=== PATIENT | male | born 1960 | race Caucasian/White ===

== ENCOUNTER 2020-10-08 11:09 | Outpatient (REF) | payer BC, SELFPAY | END 2020-10-08 11:10 | disposition home or self-care (01) | LOC: HO.LAB 11:09 | PROVIDERS: Visit Provider Internal Medicine | DX: Z20.822 Contact with and (suspected) exposure to COVID-19 (principal) | CPT/HCPCS: 36415; C9803; U0003 ==

== ENCOUNTER 2021-12-10 13:31 | Outpatient (REF) | payer BC, SELFPAY ==
[2021-12-10 14:16] LABS: COVID-19 Test Negative (Negative); IDNOW Serial# 08D9AD1C
== END 2021-12-10 13:32 | disposition home or self-care (01) ==
LOC: HO.LAB 13:31
PROVIDERS: PCP Internal Medicine; Visit Provider Internal Medicine
DX: Z20.822 Contact with and (suspected) exposure to COVID-19 (principal)
CPT/HCPCS: 87635; C9803

== ENCOUNTER 2023-04-22 05:06 | Emergency (ER) | payer OTHER, SELFPAY ==
--- NOTE | ~2023-04-22 | CT_ITS ---
EXAMINATION: CT HEAD WITHOUT CONTRAST CLINICAL INFORMATION: Hypertension COMPARISON: None available. TECHNIQUE: Contiguous axial imaging was performed from the skull base to vertex without intravenous administration of contrast. This CT examination was performed using dose optimization techniques as appropriate, variously including the following: *Automated exposure control *Adjustment of mA and/or kV according to patient size (this includes techniques or standardized protocols for targeted exams where dose is matched to indication/reason for exam; i.e. extremities or head) *Use of iterative reconstruction technique DLP: 790 mGy-cm FINDINGS: There is no evidence of acute intracranial hemorrhage or territorial infarction. No abnormal mass effect or midline shift is seen. Ritchie to white matter differentiation is well preserved. No extra-axial fluid collections are identified. No hydrocephalus. No significant volume loss. There is no abnormal attenuation within the brain parenchyma. No acute osseous or soft tissue abnormality. The mastoid air cells and visualized portions of the paranasal sinuses are well aerated. CT/CT head/brain wo IV con IMPRESSION: No acute intracranial pathology.
[2023-04-22 05:11] VITALS: BP 250/150; PULSE 98; O2SAT 97
--- NOTE | 2023-04-22 05:12 | ECG_ITS ---
Test Reason : htn Blood Pressure : / mmHG Vent. Rate : 065 BPM Atrial Rate : 065 BPM P-R Int : 190 ms QRS Dur : 110 ms QT Int : 406 ms P-R-T Axes : 062 029 060 degrees QTc Int : 422 ms Normal sinus rhythm Normal ECG No previous ECGs available Referred By: Sunny Bailon Electronically Signed By:APRIL PERRIN
--- NOTE | 2023-04-22 05:16 | ED.HA ---
HPI - Headache General Chief Complaint: Headache Stated Complaint: Nausea and headache Time Seen by Provider: 04/22/23 05:12 Source: patient Mode of arrival: ambulatory Limitations: no limitations History of Present Illness HPI Narrative: Patient history of hypertension workup from the sleep at 03:00 with severe headache diffuse with nausea and vomiting blood pressure checked by EMS was 255/150 in the ER was 197/145 denies any chest pain no palpitation Related Data Home Medications Medication Instructions Recorded Confirmed loratadine 10 mg tablet (Claritin) 10 mg PO DAILY 12/30/22 12/30/22 losartan 100 mg tablet 100 mg PO DAILY 12/30/22 12/30/22 omeprazole 20 mg capsule,delayed 20 mg PO DAILY 12/30/22 12/30/22 release Allergies Allergy/AdvReac Type Severity Reaction Status Date / Time Seasonal Allergies Allergy Mild Sneezing Verified 12/30/22 13:27 Review of Systems Review of Systems: Yes all other systems are reviewed and are negative [facility] Social History Social History Housing: House Patient Tobacco Use Status: Former Tobacco user Tobacco use type: Cigarette Smoked in Last 30 Days: No e-Cigarette/Vaping Use: Never Used Second Hand Smoke Exposure: No Advance Directives: No Advance Directives Information Provided: Yes service: Yes Current occupational status: unemployed 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 Oriented X3. No acute distress. Eyes: PERRLA, No Nystagmus ENT: Pharynx normal. Oral Mucosa moist Neck: Normal inspection. Neck supple. CVS: Normal heart rate and rhythm. Pulses normal. Respiratory: No respiratory distress. Equal air entry bilateral, no wheezing/rales/rhonchi Abdomen: Soft and nontender. Bowel sounds are present, no mass palpable, no CVA tenderness Skin: Skin warm and dry. Normal skin color. Normal skin turgor. Extremities: No lower extremity edema. No calf tenderness Neuro: Oriented X 3. No motor deficit. No sensory deficit.No cerebellar signs , cranial nerves II-XII intact NIH Stroke Scale Internal: Initial- Upon Arrival Level of Consciousness: Alert Level of Consciousness Questions: Answers both questions correctly Level of Consciousness Commands: Performs both tasks correctly Best Gaze: Normal Visual: No visual loss Facial Palsy: Normal Motor Arm (Right): No drift Motor Arm (Left): No drift Motor Leg (Right): No drift Motor Leg (Left): No drift Limb Ataxia: Absent Sensory: Normal Best Language: No aphasia Dysarthia: Normal Extinction and Inattention: No abnormality Score: 0 Medications Administered Discontinued Medications Generic Name Dose Route Start Last Admin Trade Name Gulshanq PRN Reason Stop Dose Admin Labetalol HCl 20 mg 04/22/23 05:12 04/22/23 05:17 Labetalol Hcl 100 Mg/20 Ml Vial IVPUSH 04/22/23 05:13 20 mg ONCE ONE Administration Morphine Sulfate 4 mg 04/22/23 06:29 04/22/23 06:53 Morphine Sulfate 4 Mg/Ml Cartridge IVPUSH 04/22/23 06:30 4 mg ONCE ONE Administration Protocol Ondansetron HCl 4 mg 04/22/23 05:17 04/22/23 05:34 Ondansetron Hcl 4 Mg/2 Ml Vial IVPUSH 04/22/23 05:18 4 mg ONCE ONE Administration Medical Decision Making Medical Decision Making [facility] Narrative: Patient with accelerated hypertension with severe headache less than [address] scan of the head was negative for acute bleed blood pressure improved after labetalol and headache also improved cause of acute hypertension not very clear no use of NSAID no history of migraines blood pressure now 160/84 pulse rate of 72 patient feeling much better of discharge patient Differential Diagnosis Differential Diagnoses: The differential diagnosis associated with the presentation includes Subarachnoid bleed/migraine headache/CVA/hypertension emergency Admission/Observation Consideration of admission/observation: Escalation of care including admission/observation considered Lab Data [facility] Lab Attestation statement: I reviewed the patient's lab results. 04/22/23 05:17 04/22/23 05:17 Labs: Lab Results 04/22/23 04/22/23 04/22/23 Range/Units 05:14 05:17 05:17 WBC 16.4 H (4.8-10.8) X10*3/uL RBC 5.00 (4.60-5.80) X10*6/uL Hgb 15.5 (14.0-18.0) g/dl Hct 46.6 (42.0-52.0) % MCV 93.2 (80.0-98.0) fL MCH 31.0 (27.0-33.0) pg MCHC 33.3 (31.0-36.0) g/dl RDW 13.0 (11.0-16.0) % Plt Count 395 (160-400) X10*3/uL MPV 10.4 (9.4-12.4) fL Immature Gran % (Auto) 1.2 H (0.0-0.4) % Neut % (Auto) 63.9 (45-73) % Lymph % (Auto) 26.4 (20-40) % [place] % (Auto) 6.8 (2-11) % Eos % (Auto) 1.2 (0-4) % Baso % (Auto) 0.5 (0-2) % Lymph # (Auto) 4.3 (1.2-4.9) X10*3/uL [place] # (Auto) 1.1 (0.1-1.2) X10*3/uL Eos # (Auto) 0.2 (0.0-0.4) X10*3/uL Baso # (Auto) 0.1 (0.0-0.2) X10*3/uL Abs Immat Gran (auto) 0.19 H (0.00-0.03) X10*3/uL Absolute Neuts (auto) 10.5 H (2.0-8.3) x10*3/uL Absolute Nucleated RBC 0.000 (0.0-0.012) X10*3/uL Nucleated RBC % (auto) 0.0 (0.0-0.2) /100WBC PT 10.9 L (11.1-13.3) SEC Whole Blood PT (11.1-13.5) sec INR 0.9 (0.9-1.1) Whole Blood INR (0.9-1.1) Sodium (135-145) mmol/L Potassium (3.3-5.1) mmol/L Chloride (96-108) mmol/L Carbon Dioxide (22-29) mmol/L Anion Gap (12-20) BUN (9-16) mg/dL Creatinine (0.5-1.4) mg/dL Estim Creat Clear Calc Estimated GFR POC Glucose 153 H (60-115) mg/dL Random Glucose (60-115) mg/dL Calcium (8.4-10.2) mg/dL Total Bilirubin (0.0-1.0) mg/dL AST (5-37) U/L ALT (0-40) U/L Alkaline Phosphatase (39-117) U/L Troponin I High Sens (<3.5-35.0) ng/L Total Protein (6.5-8.0) g/dL Albumin (3.5-5.0) g/dL COVID-19 (FEDE) (Negative) COVID-19 Clin Com 04/22/23 04/22/23 04/22/23 Range/Units 05:17 05:17 05:17 WBC (4.8-10.8) X10*3/uL RBC (4.60-5.80) X10*6/uL Hgb (14.0-18.0) g/dl Hct (42.0-52.0) % MCV (80.0-98.0) fL MCH (27.0-33.0) pg MCHC (31.0-36.0) g/dl RDW (11.0-16.0) % Plt Count (160-400) X10*3/uL MPV (9.4-12.4) fL Immature Gran % (Auto) (0.0-0.4) % Neut % (Auto) (45-73) % Lymph % (Auto) (20-40) % [place] % (Auto) (2-11) % Eos % (Auto) (0-4) % Baso % (Auto) (0-2) % Lymph # (Auto) (1.2-4.9) X10*3/uL [place] # (Auto) (0.1-1.2) X10*3/uL Eos # (Auto) (0.0-0.4) X10*3/uL Baso # (Auto) (0.0-0.2) X10*3/uL Abs Immat Gran (auto) (0.00-0.03) X10*3/uL Absolute Neuts (auto) (2.0-8.3) x10*3/uL Absolute Nucleated RBC (0.0-0.012) X10*3/uL Nucleated RBC % (auto) (0.0-0.2) /100WBC PT (11.1-13.3) SEC Whole Blood PT (11.1-13.5) sec INR (0.9-1.1) Whole Blood INR (0.9-1.1) Sodium 141 (135-145) mmol/L Potassium 3.7 (3.3-5.1) mmol/L Chloride 105 (96-108) mmol/L Carbon Dioxide 21 L (22-29) mmol/L Anion Gap 19 (12-20) BUN 18 H (9-16) mg/dL Creatinine 1.08 (0.5-1.4) mg/dL Estim Creat Clear Calc 90.0 Estimated GFR > 60 POC Glucose (60-115) mg/dL Random Glucose 140 H (60-115) mg/dL Calcium 10.1 (8.4-10.2) mg/dL Total Bilirubin 0.5 (0.0-1.0) mg/dL AST 26 (5-37) U/L ALT 43 H (0-40) U/L Alkaline Phosphatase 77 (39-117) U/L Troponin I High Sens < 2.7 (<3.5-35.0) ng/L Total Protein 8.1 H (6.5-8.0) g/dL Albumin 4.8 (3.5-5.0) g/dL COVID-19 (FEDE) Negative (Negative) COVID-19 Clin Com See Note 04/22/23 Range/Units 05:20 WBC (4.8-10.8) X10*3/uL RBC (4.60-5.80) X10*6/uL Hgb (14.0-18.0) g/dl Hct (42.0-52.0) % MCV (80.0-98.0) fL MCH (27.0-33.0) pg MCHC (31.0-36.0) g/dl RDW (11.0-16.0) % Plt Count (160-400) X10*3/uL MPV (9.4-12.4) fL Immature Gran % (Auto) (0.0-0.4) % Neut % (Auto) (45-73) % Lymph % (Auto) (20-40) % [place] % (Auto) (2-11) % Eos % (Auto) (0-4) % Baso % (Auto) (0-2) % Lymph # (Auto) (1.2-4.9) X10*3/uL [place] # (Auto) (0.1-1.2) X10*3/uL Eos # (Auto) (0.0-0.4) X10*3/uL Baso # (Auto) (0.0-0.2) X10*3/uL Abs Immat Gran (auto) (0.00-0.03) X10*3/uL Absolute Neuts (auto) (2.0-8.3) x10*3/uL Absolute Nucleated RBC (0.0-0.012) X10*3/uL Nucleated RBC % (auto) (0.0-0.2) /100WBC PT (11.1-13.3) SEC Whole Blood PT 12.9 (11.1-13.5) sec INR (0.9-1.1) Whole Blood INR 1.1 (0.9-1.1) Sodium (135-145) mmol/L Potassium (3.3-5.1) mmol/L Chloride (96-108) mmol/L Carbon Dioxide (22-29) mmol/L Anion Gap (12-20) BUN (9-16) mg/dL Creatinine (0.5-1.4) mg/dL Estim Creat Clear Calc Estimated GFR POC Glucose (60-115) mg/dL Random Glucose (60-115) mg/dL Calcium (8.4-10.2) mg/dL Total Bilirubin (0.0-1.0) mg/dL AST (5-37) U/L ALT (0-40) U/L Alkaline Phosphatase (39-117) U/L Troponin I High Sens (<3.5-35.0) ng/L Total Protein (6.5-8.0) g/dL Albumin (3.5-5.0) g/dL COVID-19 (FEDE) (Negative) COVID-19 Clin Com Independent Interpretation I performed an independent interpretation of an: EKG Interpretation: Normal sinus rhythm heart rate 65 beats per minute normal intervals incomplete right bundle-branch block no acute ST changes no acute ischemia Radiology Impression Discussion of test interpretation with radiology: I have reviewed the radiologist's reading. Radiologist Impression: [address] [address] [address] Scan Report Signed Patient: Kris Todd MR#: [id number] : 1960 Acct:[id number] Age/Sex: 62 / M ADM Date: 04/22/23 Loc: .ED Attending Dr: Ordering Physician: Sunny Bailon MD Date of Service: 04/22/23 Procedure(s): CT head/brain wo IV con Accession Number(s): [id number] cc: Sunny Bailon MD~ EXAMINATION: CT HEAD WITHOUT CONTRAST CLINICAL INFORMATION: Hypertension? COMPARISON: None available. TECHNIQUE: Contiguous axial imaging was performed from the skull base to vertex without intravenous administration of contrast. This CT examination was performed using dose optimization techniques as appropriate, variously including the following: *Automated exposure control *Adjustment of mA and/or kV according to patient size (this includes techniques or standardized protocols for targeted exams where dose is matched to indication/reason for exam; i.e. extremities or head) *Use of iterative reconstruction technique DLP: 790 mGy-cm FINDINGS: There is no evidence of acute intracranial hemorrhage or territorial infarction. No abnormal mass effect or midline shift is seen. Ritchie to white matter differentiation is well preserved. No extra-axial fluid collections are identified. No hydrocephalus. No significant volume loss. There is no abnormal attenuation within the brain parenchyma. No acute osseous or soft tissue abnormality. The mastoid air cells and visualized portions of the paranasal sinuses are well aerated. ? CT/CT head/brain wo IV con IMPRESSION: No acute intracranial pathology. Critical Care Time Critical Care Time Critical Care Time: Yes Total Critical Care Time: 35 Attestation: The patient was critically ill with a high probability of imminent or life threatening deterioration. I spent greater than 40 minutes of discontinuous time evaluating the patient,delivering critical care at the bedside, discussing and evaluating pertinent data with consultants. Critical care time does not include time spent performing separately billable procedures or teaching. Total time spent performing critical care was 35 minutes. Discharge Plan Discharge Clinical Impression: Accelerated essential hypertension Patient Disposition: Home, Self-Care Prescriptions: No Action losartan 100 mg tablet 100 mg PO DAILY omeprazole 20 mg capsule,delayed release(DR/EC) 20 mg PO DAILY loratadine [Claritin] 10 mg tablet 10 mg PO DAILY
[2023-04-22] MEDS: Labetalol HCL 100 MG/20 ML VIAL 20 MG IVPUSH (05:17)
[2023-04-22 05:18] VITALS: BP 195/147; PULSE 85; RESP 16
[2023-04-22 05:19] VITALS: BP 195/147; PULSE 85; RESP 16; TEMP 36.6; O2SAT 94; BMI 39.9
[2023-04-22 05:21] LABS: Basophils Absolute Auto 0.1 X10*3/uL (0.0-0.2); Basophils Percent Auto 0.5 % (0-2); Eosinophils Absolute Auto 0.2 X10*3/uL (0.0-0.4); Eosinophils Percent Auto 1.2 % (0-4); Hematocrit 46.6 % (42.0-52.0); Hemoglobin 15.5 g/dl (14.0-18.0); Imm Gran Abs Auto 0.19 X10*3/uL (0.00-0.03); Imm Gran Pct Auto 1.2 % (0.0-0.4); Lymphocytes Absolute Auto 4.3 X10*3/uL (1.2-4.9); Lymphocytes Percent Auto 26.4 % (20-40); MANUAL DIFF FLAG NO; Mean Corpuscular HGB Conc 33.3 g/dl (31.0-36.0); Mean Corpuscular Volume 93.2 fL (80.0-98.0); Mean Platelet Volume 10.4 fL (9.4-12.4); Monocytes Absolute Auto 1.1 X10*3/uL (0.1-1.2); Monocytes Percent Auto 6.8 % (2-11); Neutrophils Absolute Auto 10.5 x10*3/uL (2.0-8.3); Neutrophils Percent Auto 63.9 % (45-73); Platelet Count 395 X10*3/uL (160-400); White Blood Count 16.4 X10*3/uL (4.8-10.8)
[2023-04-22 05:24] LABS: Prothrombin Time Whole Bld POC 12.9 sec (11.1-13.5); ~PT, ~INR - Anti Coag Clinic 1.1 (0.9-1.1)
[2023-04-22 05:26] LABS: Glucose, Whole Blood 153 mg/dL (60-115)
[2023-04-22 05:28] LABS: INTERNATIONAL NORM RATIO 0.9 (0.9-1.1); Prothrombin Time 10.9 SEC (11.1-13.3)
[2023-04-22 05:34] VITALS: BP 178/101
[2023-04-22 05:34] LABS: COVID-19 Test Negative (Negative); IDNOW Serial# BCCEAD1C
[2023-04-22] MEDS: ondansetron HCL 4 MG/2 ML VIAL IVPUSH (05:34)
--- NOTE | 2023-04-22 05:37 | PC.NURSE ---
Pt a&o, no sob or chest pain, pt place on bedside monitor, poc, InR, Iv placed, provider at the bedside, medicated per Nov, EKG completed, Pt taken to CT scan. JOSE LUIS Clarke notified. Will continue to monitor.
[2023-04-22 05:43] LABS: Alanine Aminotransferase 43 U/L (0-40); Albumin Level 4.8 g/dL (3.5-5.0); Alkaline Phosphatase 77 U/L (39-117); Anion Gap 19 (12-20); Aspartate Amino Transferase 26 U/L (5-37); Bilirubin Total 0.5 mg/dL (0.0-1.0); Blood Urea Nitrogen 18 mg/dL (9-16); Calcium 10.1 mg/dL (8.4-10.2); Carbon Dioxide 21 mmol/L (22-29); Chloride 105 mmol/L (96-108); Estimated Glomerular Filt Rate > 60; Glucose Random 140 mg/dL (60-115); Potassium 3.7 mmol/L (3.3-5.1); Sodium 141 mmol/L (135-145); Total Protein 8.1 g/dL (6.5-8.0)
[2023-04-22 05:51] LABS: Troponin-I High Sensitivity < 2.7 ng/L (<3.5-35.0)
[2023-04-22 06:00] VITALS: BP 179/84; PULSE 73; RESP 17; O2SAT 95
[2023-04-22] MEDS: Morphine Sulfate 4 MG/ML CARTRIDGE IVPUSH (06:53)
[2023-04-22 07:17] VITALS: BP 160/84; PULSE 82; RESP 17; O2SAT 94
== END 2023-04-22 07:18 | disposition home or self-care (01) ==
PROVIDERS: Emergency Provider Internal Medicine; PCP Internal Medicine
DX: I10 Essential (primary) hypertension (principal); R11.2 Nausea with vomiting, unspecified; Z20.822 Contact with and (suspected) exposure to COVID-19; Z87.891 Personal history of nicotine dependence; Z79.899 Other long term (current) drug therapy
CPT/HCPCS: 70450; 80053; 82947; 84484; 85025; 85610; 87635; 93005; 96374; 96375; 99284; J2270; J2405

== ENCOUNTER → 2023-04-22 05:12 | Outpatient (BNV) | payer OTHER, SELFPAY | PROVIDERS: Emergency Provider Internal Medicine; PCP Internal Medicine; Visit Provider Internal Medicine | DX: I10 Essential (primary) hypertension (principal) | CPT/HCPCS: 93010 ==

== ENCOUNTER 2023-05-01 07:51 | Outpatient (REF) | payer OTHER, SELFPAY ==
[2023-05-01 11:54] LABS: MANUAL DIFF FLAG NO
[2023-05-01 12:18] LABS: Basophils Absolute Auto 0.1 X10*3/uL (0.0-0.2); Basophils Percent Auto 0.9 % (0-2); Eosinophils Absolute Auto 0.2 X10*3/uL (0.0-0.4); Eosinophils Percent Auto 1.7 % (0-4); Hematocrit 46.1 % (42.0-52.0); Hemoglobin 15.4 g/dl (14.0-18.0); Imm Gran Abs Auto 0.06 X10*3/uL (0.00-0.03); Imm Gran Pct Auto 0.6 % (0.0-0.4); Lymphocytes Absolute Auto 3.2 X10*3/uL (1.2-4.9); Lymphocytes Percent Auto 30.7 % (20-40); Mean Corpuscular HGB Conc 33.4 g/dl (31.0-36.0); Mean Corpuscular Hemoglobin 31.2 pg (27.0-33.0); Mean Corpuscular Volume 93.3 fL (80.0-98.0); Mean Platelet Volume 10.8 fL (9.4-12.4); Monocytes Absolute Auto 0.9 X10*3/uL (0.1-1.2); Monocytes Percent Auto 8.1 % (2-11); Neutrophils Absolute Auto 6.1 x10*3/uL (2.0-8.3); Platelet Count 358 X10*3/uL (160-400); Red Blood Count 4.94 X10*6/uL (4.60-5.80); Red Cell Distribution Width 12.9 % (11.0-16.0); White Blood Count 10.6 X10*3/uL (4.8-10.8)
[2023-05-01 12:44] LABS: Alanine Aminotransferase 34 U/L (0-40); Albumin Level 4.5 g/dL (3.5-5.0); Alkaline Phosphatase 70 U/L (39-117); Anion Gap 12 (12-20); Aspartate Amino Transferase 24 U/L (5-37); Bilirubin Total 0.7 mg/dL (0.0-1.0); Blood Urea Nitrogen 16 mg/dL (9-16); Calcium 9.7 mg/dL (8.4-10.2); Carbon Dioxide 27 mmol/L (22-29); Chloride 103 mmol/L (96-108); Cholesterol 231 mg/dL; Estimated Glomerular Filt Rate > 60; Glucose Fasting 96 mg/dL (60-99); HDL Cholesterol 38 mg/dL; LDL Cholesterol Calculated 154 mg/dl; Potassium 4.2 mmol/L (3.3-5.1); Sodium 138 mmol/L (135-145); Total Protein 7.7 g/dL (6.5-8.0); Triglycerides 196 mg/dL
[2023-05-01 13:02] LABS: TSH reflex Free T4 2.86 uIU/mL (0.32-4.0)
== END 2023-05-01 07:52 | disposition home or self-care (01) ==
LOC: HO.HMGCLDS 07:51
PROVIDERS: PCP Internal Medicine; Visit Provider Internal Medicine
DX: E66.01 Morbid (severe) obesity due to excess calories (principal); I07.1 Rheumatic tricuspid insufficiency; I10 Essential (primary) hypertension; I35.0 Nonrheumatic aortic (valve) stenosis; K21.9 Gastro-esophageal reflux disease without esophagitis; M51.26 Other intervertebral disc displacement, lumbar region; R01.1 Cardiac murmur, unspecified; Z91.09 Other allergy status, other than to drugs and biological substances
CPT/HCPCS: 36415; 80053; 80061; 84443; 85025

== ENCOUNTER 2023-05-03 08:23 | Outpatient (AMB) | payer OTHER, SELFPAY ==
--- NOTE | 2023-05-03 08:26 | MHC.PC.OV ---
Vital Signs 05/03/23 08:29 Height 5 ft 8 in Weight 263 lb 8 oz BMI 40.1 BP 148/66 H Blood Pressure Location Rt brachial Position Sitting Pulse 92 Pulse Source Pulse Oximeter Pulse Oximetry (%) 93 Oxygen Delivery Method Room Air Intake Visit Reasons: 4 Month follow up Allergies Seasonal Allergies Allergy (Mild, Verified 05/03/23 08:30) Sneezing Medication List - Last Reconciled 05/03/23 by Stef Lucero MD amlodipine 5 mg PO QPM loratadine (Claritin) 10 mg PO DAILY losartan 100 mg PO DAILY omeprazole 20 mg PO DAILY Tobacco use date assessed: 05/03/23 Dental Screening Dental Screen Date: 05/03/23 Did you have a dental visit in the last 12 months?: Yes Did you have a dental problem in the last 6 months where you did not have access to dental care?: No Was dental information given to patient?: No HPI 4 Month follow up HPI Details Patient is a 62-year-old male who presented to emergency room on 04/23/2023 with a chief complaint of severe headache associated with nausea and dizziness. EMS reported blood pressure was 260 systolic in the field. Patient had a similar episode the night prior and was taken to [facility] where he had a CT scan imaging that did not show any significant finding EKG also did not show anything acute He was discharged home with amlodipine Patient was admitted for hypertensive emergency Patient was also seen by back closer they are in a process of working him up his metanephrines and aldosterone renin ratio is pending Patient says that Nephrology office will call him for appointment once the reports are available. He has body habitus possible of sleep apnea He says that his father has it and his son have set, I have ordered a home sleep study for him. His LDL is elevated at 154, patient says that it is because he has gained a lot of weight and he was eating unhealthy diet because of unable to cook He is still dealing with workman's comp for his back and hip pain. Patient will need surgery however because of the uncontrolled blood pressure it is on hold. Patient is to increase amlodipine to 10 mg at bedtime because it is usually in the morning his blood pressure is high. 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 1. Little interest or pleasure in doing things: not at all 2. Feeling down, depressed, or hopeless: not at all 3. Trouble falling or staying asleep, or sleeping too much: not at all 4. Feeling tired or having little energy: not at all 5. Poor appetite or overeating: not at all 6. Feeling bad about yourself - or that you are a failure or have let yourself or your family down: not at all 7. Trouble concentrating on things, such as reading the newspaper or watching television: not at all 8. Moving or speaking so slowly that other people could have noticed. Or the opposite - being so fidgety or restless that you have been moving around a lot more than usual: not at all 9. Thoughts that you would be better off or of hurting yourself in some way: not at all Total score: 0 Depression Screening Interpretation: Negative 06512 - PHQ-9 Billing: Yes Source: Developed by Drs. Jeramy Slaughter, Mary Ann David, Kamlesh Rodríguez and colleagues, with an educational farhan from [employer]. Thrive Questionnaire Date Thrive assessed: 05/03/23 I am a: Patient What is your living situation today?: I have a steady place to live Within the past 12 months, did the food you bought not last and you didn't have the money to get more?: Never true Within the past 12 months, did you worry whether your food would run out before you got money to buy more?: Never true Do you have trouble paying for medicines?: No Do you have trouble getting transportation to medical appointments?: No Do you have trouble paying your heating and electricity bill?: No Do you have trouble taking care of your child, family member or friend?: No Do you have trouble with day-to-day activities such as bathing, preparing meals, shopping, managing finances, etc.?: No Are you currently unemployed and looking for a job?: Yes Are you interested in more education?: No AUDIT C Alcohol Use Questionnaire (AUDIT-C) 1. How often do you have a drink containing alcohol?: Never 3. How often do you have six or more drinks on one occasion?: Never Total Score: 0 Score Reviewed/Action Taken: Yes ELI-7 AMB Questionnaire ELI-7 Date ELI - 7 assessed: 05/03/23 Feeling nervous, anxious, or on edge: 0 = Not at all Not being able to stop or control worryin = Not at all Worrying too much about different things: 0 = Not at all Trouble relaxin = Not at all Being so restless that it is hard to sit still: 0 = Not at all Becoming easily annoyed or irritable: 0 = Not at all Feeling afraid as if something awful might happen: 0 = Not at all Total ELI-7 score (0-4 normal; 5-9 mild; 10-14 moderate; 15-21 severe): 0 Source: Developed by Drs. Jeramy Slaughter, Mary Ann David, Kamlesh Rodríguez and colleagues, with an educational farhan from [employer]. ELI-7 Assessment Billing ELI-7 Assessment Tool: ELI-7 Assessment 26209 Review of Systems Const Denies chills and Denies fever(s) ENT Denies epistaxis and Denies nasal discharge Card Denies chest pain Resp Denies chest congestion, Denies cough and Denies hemoptysis GI Denies diarrhea and Denies nausea Skin/Breast Denies rash Neuro Reports no additional complaints Psych Reports no additional complaints Endo Reports no additional complaints Physical exam (Primary Care) Vital Signs: Last Vital Signs Pulse 92 05/03/23 08:29 BP 148/66 H 05/03/23 08:29 Pulse Ox 93 05/03/23 08:29 Oxygen Delivery Method Room Air 05/03/23 08:29 BMI result Body Mass Index 40.1 Tobacco/Smoking Status: Tobacco use Status Tobacco use date assessed 05/03/23 05/03/23 08:31 Patient Tobacco Use Status Former Tobacco user 05/03/23 08:27 Tobacco use type Cigarette 05/03/23 08:27 e-Cigarette/Vaping Use Never Used 05/03/23 08:27 PHQ-9: PHQ-9 Score PHQ-9: Total score 0 05/03/23 09:28 Depression Screening Interpretation: Negative Thrive Assessment: Date of Thrive Assessment Date Thrive assessed 05/03/23 05/03/23 08:56 Const General: cooperative, comfortable and no acute distress Orientation/consciousness: patient oriented x3 HENMT Head: Yes normocephalic Eyes General: appearance normal, both eyes and all related structures Neck Neck: Yes supple Resp Effort & Inspection: normal respiratory effort, no cough and no stridor Cardio Rhythm: regular rhythm Heart sounds: S1 normal heart sound present and S2 normal heart sound present Skin General skin exam: turgor normal Neuro General: patient oriented x3, tone normal and moves all extremities Extrem Right lower extremity: no edema Left lower extremity: no edema Assessment and Plan Assessment & Plan (1) Hospital discharge follow-up: Code(s): Z09 - Encounter for follow-up examination after completed treatment for conditions other than malignant neoplasm (2) Labile hypertension: Code(s): R09.89 - Other specified symptoms and signs involving the circulatory and respiratory systems (3) Morbid obesity due to excess calories: Code(s): E66.01 - Morbid (severe) obesity due to excess calories (4) Work-related stress: Code(s): Z56.6 - Other physical and mental strain related to work (5) Chronic GERD: Code(s): K21.9 - Gastro-esophageal reflux disease without esophagitis (6) Lipid disorder: Code(s): E78.9 - Disorder of lipoprotein metabolism, unspecified (7) Sleep apnea in adult: Code(s): G47.30 - Sleep apnea, unspecified Plan Patient is a 62-year-old male who presented to emergency room on 04/23/2023 with a chief complaint of severe headache associated with nausea and dizziness. EMS reported blood pressure was 260 systolic in the field. Patient had a similar episode the night prior and was taken to [facility] where he had a CT scan imaging that did not show any significant finding EKG also did not show anything acute He was discharged home with amlodipine Patient was admitted for hypertensive emergency Patient was also seen by back closer they are in a process of working him up his metanephrines and aldosterone renin ratio is pending Patient says that Nephrology office will call him for appointment once the reports are available. He has body habitus possible of sleep apnea He says that his father has it and his son have set, I have ordered a home sleep study for him. His LDL is elevated at 154, patient says that it is because he has gained a lot of weight and he was eating unhealthy diet because of unable to cook He is still dealing with workman's comp for his back and hip pain. Patient will need surgery however because of the uncontrolled blood pressure it is on hold. Patient is to increase amlodipine to 10 mg at bedtime because it is usually in the morning his blood pressure is high. He will continue to monitor his blood pressure and will see the back closer as well Continue omeprazole for chronic GERD Patient will return and see me in 4 weeks Orders: Orders RT home sleep study Today G47.30 - Sleep apnea, unspecified Coding Level of Care Code Est Pt Level 5 (74041) Diagnoses Hospital discharge follow-up Z09 Labile hypertension R09.89 Morbid obesity due to excess calories E66.01 Work-related stress Z56.6 Chronic GERD K21.9 Lipid disorder E78.9 Sleep apnea in adult G47.30 Additional Codes ELI-7 Assessment Billing - ELI-7 Assessment Tool: ELI-7 Assessment 57615 ([id number]) Time Spent (min) 45 Comment Reviewing chart, hospital notes, documents, [id number], charting, coordination of care
[2023-05-03 08:29] VITALS: BP 148/66; PULSE 92; O2SAT 93; BMI 40.1
== END 2023-05-03 08:52 | disposition home or self-care (01) ==
PROVIDERS: Visit Provider Internal Medicine
DX: R09.89 Other specified symptoms and signs involving the circulatory and respiratory systems (principal); E66.01 Morbid (severe) obesity due to excess calories; Z68.41 Body mass index [BMI] 40.0-44.9, adult; K21.9 Gastro-esophageal reflux disease without esophagitis; Z09 Encounter for follow-up examination after completed treatment for conditions other than malignant neoplasm; Z56.6 Other physical and mental strain related to work; E78.9 Disorder of lipoprotein metabolism, unspecified; G47.30 Sleep apnea, unspecified
CPT/HCPCS: 99215

== ENCOUNTER → 2023-06-13 13:43 | Outpatient (REF) | payer OTHER, SELFPAY | LOC: HO.SL 13:43 | PROVIDERS: PCP Internal Medicine; Visit Provider Internal Medicine | DX: G47.31 Primary central sleep apnea (principal) | CPT/HCPCS: 95806 ==

== ENCOUNTER → 2023-06-13 13:52 | Outpatient (BNV) | payer OTHER, SELFPAY | PROVIDERS: PCP Internal Medicine; Visit Provider Internal Medicine | DX: G47.31 Primary central sleep apnea (principal) | CPT/HCPCS: 95806 ==

== ENCOUNTER 2023-06-23 12:45 | Outpatient (AMB) | payer OTHER, SELFPAY ==
[2023-06-23 12:46] VITALS: BP 150/80; PULSE 90; O2SAT 95; BMI 38.1
--- NOTE | 2023-06-23 12:46 | MHC.PC.OV ---
Vital Signs 06/23/23 12:46 Height 5 ft 8 in Weight 250 lb 8 oz BMI 38.1 BP 150/80 H Blood Pressure Location Lt brachial Position Sitting Pulse 90 Pulse Source Pulse Oximeter Pulse Oximetry (%) 95 Intake Visit Reasons: follow up GERD Allergies Seasonal Allergies Allergy (Mild, Verified 06/23/23 12:50) Sneezing Medication List - Last Reconciled 06/23/23 by Stef Lucero MD amlodipine 10 mg PO QPM loratadine (Claritin) 10 mg PO DAILY losartan 100 mg PO DAILY omeprazole 20 mg PO DAILY Tobacco use date assessed: 05/03/23 Dental Screening Dental Screen Date: 06/23/23 Did you have a dental visit in the last 12 months?: Yes Did you have a dental problem in the last 6 months where you did not have access to dental care?: No Was dental information given to patient?: Patient has dentist HPI follow up GERD HPI Details Patient is a 62-year-old male came in today for his follow-up appointment Patient had a home sleep study done which showed severe sleep apnea, we will be working him titration sleep study as soon as possible. His blood pressure continued to fluctuate, he brought in her blood pressure readings from home which range anywhere from a 110 systolic to 170 systolic Patient is going through stressful time because of the injury he encountered at work. He feels that he will not be compensated for that and that is causing stress. When he feels under stress is blood pressure goes up. He is requesting a letter stating that which I have provided. He has been evaluated by the Nephrology and is other causes of hypertension ruled out. Patient have essential hypertension which is worsening with the stress. He is currently taking amlodipine 10 mg and losartan 100 mg. I am starting him on Lexapro 10 mg, I am hoping that with control of his emotions his blood pressure will be better controlled. He is not taking omeprazole 20 mg which is helping him. He is to continue that Allergies are stable with Claritin. Patient is trying to lose weight his BMI is 38.1 His LDL is elevated but we will give him some time to modify his diet and lose some weight. We will check it again with next set of labs. 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 How often do you have a drink containing alcohol?: Monthly or less 2. How many drinks containing alcohol do you have on a typical day when you are drinking?: 1 or 2 3. How often do you have six or more drinks on one occasion?: Never Total Score: 1 ELI-7 AMB Questionnaire ELI-7 Date ELI - 7 assessed: 05/03/23 Feeling nervous, anxious, or on edge: 2 = More than half the days Not being able to stop or control worryin = Several days Worrying too much about different things: 2 = More than half the days Trouble relaxin = Not at all Being so restless that it is hard to sit still: 0 = Not at all Becoming easily annoyed or irritable: 1 = Several days Feeling afraid as if something awful might happen: 0 = Not at all Total ELI-7 score (0-4 normal; 5-9 mild; 10-14 moderate; 15-21 severe): 6 Source: Developed by Drs. Jeramy Slaughter, Mary Ann David, Kamlesh Rodríguez and colleagues, with an educational farhan from [employer]. Review of Systems Const Denies chills, Denies excessive sweating, Denies fever(s) and Denies poor appetite Eyes Denies blurry vision and Denies eye pain ENT Denies disequilibrium, Denies sore throat, Denies throat swelling and Denies tongue swelling Card Denies chest pain at rest, Denies radiating jaw, neck or arm pain and Denies paroxysmal nocturnal dyspnea Resp Denies cough and Denies hemoptysis GI Denies melena, Denies change in stool character, Denies coffee ground emesis and Denies vomiting Musc Reports as per HPI Skin/Breast Reports as per HPI Neuro Denies tremor(s) and Denies disequilibrium Endo Denies cold intolerance and Denies excessive sweating Aller/Immun Denies throat swelling and Denies tongue swelling Physical exam (Primary Care) Vital Signs: Last Vital Signs Pulse 90 06/23/23 12:46 BP 150/80 H 06/23/23 12:46 Pulse Ox 95 06/23/23 12:46 BMI result Body Mass Index 38.1 Tobacco/Smoking Status: Tobacco use Status Tobacco use date assessed 05/03/23 06/23/23 12:46 Patient Tobacco Use Status Former Tobacco user 06/23/23 12:46 Tobacco use type Cigarette 06/23/23 12:46 e-Cigarette/Vaping Use Never Used 06/23/23 12:46 Thrive Assessment: Date of Thrive Assessment Date Thrive assessed 05/03/23 06/23/23 12:46 Const General: cooperative, comfortable and no acute distress Orientation/consciousness: patient oriented x3 HENMT Head: Yes normocephalic and Yes atraumatic Ears: hearing grossly normal bilaterally Eyes General: appearance normal, both eyes and all related structures Neck Neck: Yes no lymphadenopathy and No tracheal deviation Resp Effort & Inspection: normal respiratory effort, able to speak in complete sentences and no audible wheezes Cardio Rhythm: regular rhythm Heart sounds: S1 normal heart sound present and S2 normal heart sound present Skin General skin exam: turgor normal Neuro General: patient oriented x3 and moves all extremities Gait exam (Neuro): Normal gait present Extrem Right lower extremity: no edema Left lower extremity: no edema Psych Affect: normal affect Attitude: cooperative Assessment and Plan Assessment & Plan (1) Severe sleep apnea: Code(s): G47.30 - Sleep apnea, unspecified (2) Labile hypertension: Code(s): R09.89 - Other specified symptoms and signs involving the circulatory and respiratory systems (3) Morbid obesity due to excess calories: Code(s): E66.01 - Morbid (severe) obesity due to excess calories (4) Work-related stress: Code(s): Z56.6 - Other physical and mental strain related to work (5) Chronic GERD: Code(s): K21.9 - Gastro-esophageal reflux disease without esophagitis (6) Lipid disorder: Code(s): E78.9 - Disorder of lipoprotein metabolism, unspecified Plan Patient is a 62-year-old male came in today for his follow-up appointment Patient had a home sleep study done which showed severe sleep apnea, we will be working him titration sleep study as soon as possible. His blood pressure continued to fluctuate, he brought in her blood pressure readings from home which range anywhere from a 110 systolic to 170 systolic Patient is going through stressful time because of the injury he encountered at work. He feels that he will not be compensated for that and that is causing stress. When he feels under stress is blood pressure goes up. He is requesting a letter stating that which I have provided. He has been evaluated by the Nephrology and is other causes of hypertension ruled out. Patient have essential hypertension which is worsening with the stress. He is currently taking amlodipine 10 mg and losartan 100 mg. I am starting him on Lexapro 10 mg, I am hoping that with control of his emotions his blood pressure will be better controlled. He is not taking omeprazole 20 mg which is helping him. He is to continue that Allergies are stable with Claritin. Patient is trying to lose weight his BMI is 38.1 His LDL is elevated but we will give him some time to modify his diet and lose some weight. We will check it again with next set of labs. Patient will return for follow-up in 3 weeks Orders: Orders RT PSG in-lab sleep titration Today G47.30 - Sleep apnea, unspecified Medications: New escitalopram oxalate (Lexapro) 10 mg PO DAILY 30 tabs 0RF Coding Level of Care Code Est Pt Level 4 (01715) Diagnoses Severe sleep apnea G47.30 Labile hypertension R09.89 Morbid obesity due to excess calories E66.01 Work-related stress Z56.6 Chronic GERD K21.9 Lipid disorder E78.9
== END 2023-06-23 13:27 | disposition home or self-care (01) ==
PROVIDERS: PCP Internal Medicine; Visit Provider Internal Medicine
DX: G47.30 Sleep apnea, unspecified (principal); E66.01 Morbid (severe) obesity due to excess calories; Z68.38 Body mass index [BMI] 38.0-38.9, adult; R09.89 Other specified symptoms and signs involving the circulatory and respiratory systems; Z56.6 Other physical and mental strain related to work; K21.9 Gastro-esophageal reflux disease without esophagitis; E78.9 Disorder of lipoprotein metabolism, unspecified
CPT/HCPCS: 99214

== ENCOUNTER → 2023-07-09 19:30 | Outpatient (BNV) | payer OTHER, SELFPAY | PROVIDERS: PCP Internal Medicine; Visit Provider Internal Medicine | DX: G47.33 Obstructive sleep apnea (adult) (pediatric) (principal) | CPT/HCPCS: 95811 ==

== ENCOUNTER → 2023-07-09 20:54 | Outpatient (REF) | payer OTHER, SELFPAY | LOC: HO.SL 20:54 | PROVIDERS: PCP Internal Medicine; Visit Provider Internal Medicine | DX: G47.33 Obstructive sleep apnea (adult) (pediatric) (principal) | CPT/HCPCS: 95811 ==

== ENCOUNTER 2023-07-18 12:04 | Outpatient (AMB) | payer OTHER, SELFPAY ==
[2023-07-18 12:21] VITALS: BP 110/50; PULSE 91; O2SAT 95; BMI 38.6
--- NOTE | 2023-07-18 12:21 | A.OFFPC_ITS ---
Vital Signs 07/18/23 12:21 Height 5 ft 8 in Weight 254 lb BMI 38.6 BP 110/50 L Blood Pressure Location Lt brachial Position Sitting Pulse 91 Pulse Source Pulse Oximeter Pulse Oximetry (%) 95 Oxygen Delivery Method Room Air Intake Visit Reasons: 3 week fu Allergies Seasonal Allergies Allergy (Mild, Verified 07/18/23 12:23) Sneezing Medication List - Last Reconciled 07/18/23 by Stef Lucero MD amlodipine 10 mg PO QPM CPAP (CPAP Machine/Device) As directed loratadine (Claritin) 10 mg PO DAILY losartan 100 mg PO DAILY omeprazole 20 mg PO DAILY Tobacco use date assessed: 07/18/23 Dental Screening Dental Screen Date: 07/18/23 Did you have a dental visit in the last 12 months?: Yes Did you have a dental problem in the last 6 months where you did not have access to dental care?: No Was dental information given to patient?: Patient has dentist HPI 3 week fu HPI Details Blood pressure is much improved it is 110 x 50 Could not take Lexapro because it caused headache Sleep study shows severe sleep apnea, we have initiated the set up for CPAP machine already I also placed order for him to be established with a sleep specialist for ongoing care Patient will return in December for physical examination Patient is also taking Celebrex that was started from [facility] for his hip arthritis He says that when he runs out he will let us know so we can send the refill for the patient [facility] Social History Housing: House Patient Tobacco Use Status: Former Tobacco user Tobacco use type: Cigarette e-Cigarette/Vaping Use: Never Used Second Hand Smoke Exposure: No service: Yes Current occupational status: unemployed 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 How often do you have a drink containing alcohol?: Monthly or less 2. How many drinks containing alcohol do you have on a typical day when you are drinking?: 1 or 2 3. How often do you have six or more drinks on one occasion?: Never Total Score: 1 ELI-7 AMB Questionnaire ELI-7 Date ELI - 7 assessed: 05/03/23 Source: Developed by Drs. Jeramy Slaughter, Mary Ann David, Kamlesh Rodríguez and colleagues, with an educational farhan from [employer]. Review of Systems Const Denies chills and Denies fever(s) ENT Denies epistaxis and Denies nasal discharge Card Denies chest pain Resp Denies chest congestion, Denies cough and Denies hemoptysis GI Denies diarrhea and Denies nausea Skin/Breast Denies rash Neuro Reports no additional complaints Psych Reports no additional complaints Endo Reports no additional complaints Physical exam (Primary Care) Vital Signs: Last Vital Signs Pulse 91 07/18/23 12:21 BP 110/50 L 07/18/23 12:21 Pulse Ox 95 07/18/23 12:21 Oxygen Delivery Method Room Air 07/18/23 12:21 BMI result Body Mass Index 38.6 Tobacco/Smoking Status: Tobacco use Status Tobacco use date assessed 07/18/23 07/18/23 12:24 Patient Tobacco Use Status Former Tobacco user 07/18/23 12:24 Tobacco use type Cigarette 07/18/23 12:24 e-Cigarette/Vaping Use Never Used 07/18/23 12:24 Thrive Assessment: Date of Thrive Assessment Date Thrive assessed 05/03/23 07/18/23 12:24 Const General: cooperative, comfortable and no acute distress Orientation/consciousness: patient oriented x3 HENMT Head: Yes normocephalic Eyes General: appearance normal, both eyes and all related structures Neck Neck: Yes supple Resp Effort & Inspection: normal respiratory effort, no cough and no stridor Cardio Rhythm: regular rhythm Heart sounds: S1 normal heart sound present and S2 normal heart sound present Skin General skin exam: turgor normal Neuro General: patient oriented x3, tone normal and moves all extremities Extrem Right lower extremity: no edema Left lower extremity: no edema Assessment and Plan Assessment & Plan (1) Severe sleep apnea: Code(s): G47.30 - Sleep apnea, unspecified (2) Hypertension, essential: Code(s): I10 - Essential (primary) hypertension (3) Osteoarthritis of multiple joints: Code(s): M15.9 - Polyosteoarthritis, unspecified Plan Blood pressure is much improved it is 110 x 50 Could not take Lexapro because it caused headache Sleep study shows severe sleep apnea, we have initiated the set up for CPAP machine already I also placed order for him to be established with a sleep specialist for ongoing care Patient will return in December for physical examination Patient is also taking Celebrex that was started from [facility] for his hip arthritis He says that when he runs out he will let us know so we can send the refill for the patient Medications: New celecoxib (Celebrex) 200 mg PO DAILY Coding Level of Care Code Est Pt Level 3 (33051) Diagnoses Severe sleep apnea G47.30 Hypertension, essential I10 Osteoarthritis of multiple joints M15.9
== END 2023-07-18 14:38 | disposition home or self-care (01) ==
PROVIDERS: PCP Internal Medicine; Visit Provider Internal Medicine
DX: G47.30 Sleep apnea, unspecified (principal); I10 Essential (primary) hypertension; M15.9 Polyosteoarthritis, unspecified
CPT/HCPCS: 99213

== ENCOUNTER 2023-07-26 10:48 | Outpatient (AMB) | payer OTHER, SELFPAY ==
[2023-07-26 11:02] VITALS: BP 134/62; PULSE 81; O2SAT 95; BMI 38.2
--- NOTE | 2023-07-26 11:02 | A.OFFVIS_ITS ---
Intake Vital Signs 3 07/26/23 11:02 Height 5 ft 8 in Weight 251 lb BMI 38.2 BP 134/62 Blood Pressure Location Lt brachial Position Sitting Pulse 81 Pulse Source Pulse Oximeter Pulse Oximetry (%) 95 Intake Visit Reasons: Sleep apnea Telegraph Mechanic Required: No Bioprocess Development Engineer: Bioprocess Development Engineer offered & declined Accompanied by: Self / Same As Patient Allergies Seasonal Allergies Allergy (Mild, Verified 07/26/23 11:06) Sneezing Medication List - Last Reconciled 07/26/23 by Sonia Vega LPN amlodipine 10 mg PO QPM celecoxib (Celebrex) 200 mg PO DAILY CPAP (CPAP Machine/Device) As directed loratadine (Claritin) 10 mg PO DAILY losartan 100 mg PO DAILY omeprazole 20 mg PO DAILY HPI Sleep apnea 2 HPI0 Details Kris is a pleasant 62 year old male, former minimal smoker as a teenager, with underlying history of hypertension. He was referred by PCP for pulmonary evaluation for LUIS. He was recently admitted to [facility] [place] for uncontrolled hypertension with recommendation for sleep study, otherwise denies PND, daytime fatigue, or loud snoring. Sleep study revealed severe obstructive sleep apnea and was sent for titration study, impression and recommendation below. He has not started CPAP therapy yet. He reports childhood asthma but denies any respiratory symptoms at this time. He reports brother and son with sleep apnea. 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 Current occupational exposures/hazards: No Cognitive needs: No Hearing needs: Yes (left ear ) Vision needs: Yes Review of Systems Const Denies chills, Denies excessive sweating, Denies fever(s), Denies headache(s) and Denies night sweats Eyes Denies dry eyes, Denies irritation and Denies itchy eyes ENT Reports Normal hearing present and Denies headache(s) Card Denies chest pain, Denies chest pain at rest, Denies chest pain with activity, Denies claudication, Denies leg edema, Denies dyspnea, Denies dyspnea on exertion, Denies orthopnea and Denies paroxysmal nocturnal dyspnea Resp Denies chest congestion, Denies cough, Denies excessive phlegm production, Denies pain on inspiration, Denies pain with cough, Denies dyspnea, Denies dyspnea on exertion, Denies stridor and Denies wheezing Musc Denies myalgias Neuro Reports Normal hearing present and Denies headache(s) Endo Denies excessive sweating Clement/Lymph Denies lymphadenopathy Aller/Immun Denies itchy eyes, Denies seasonal rhinorrhea and Denies wheezing Physical Exam Vital Signs: Last Vital Signs Pulse 81 07/26/23 11:02 BP 134/62 07/26/23 11:02 Pulse Ox 95 07/26/23 11:02 BMI result Body Mass Index 38.2 Const General: cooperative, healthy appearing, comfortable, no acute distress, well developed and alert Nutritional Appearance: obese Orientation/consciousness: patient oriented x3 Limitations: no limitations HEENT Head: Yes normal to inspection, Yes normocephalic and Yes atraumatic Ears: hearing grossly normal bilaterally and external ears normal Eyes General: appearance normal, both eyes and all related structures Eyelids: Yes eyelids normal Sclerae: sclerae normal EOM: EOMs intact bilaterally Neck Neck: Yes normal visual inspection and Yes no lymphadenopathy Lymphatic: no lymphadenopathy noted Chest Chest palpation & inspection: normal inspection of the chest Resp Effort & Inspection: normal respiratory effort, able to speak in complete sentences, no audible wheezes, no cough, no stridor, not tachypneic, no tripod positioning and no use of accessory muscles Auscultation: clear to auscultation bilaterally Cardio Jugular venous distension: no JVD Rate: regular rate Rhythm: regular rhythm Skin Other: warm, dry General skin exam: no rashes or lesions noted Neuro General: patient oriented x3 Cranial nerves: Yes Normal hearing present Cognition (Neuro): normal cognition Gait exam (Neuro): Normal gait present Extrem General: Yes normal to inspection, Yes capillary refill normal, Yes no clubbing, cyanosis or edema and Yes no pedal edema Psych Appearance: grossly normal and well kempt Speech and movement: Normal speech and movement present and Clear speech present Affect: normal affect Attitude: cooperative Thought process: Normal thought process present Thought content: Normal thought content present Insight: Good insight present (Psych) Judgement: Good judgement present (Psych) Results Reviewed Results Reviewed: Assessment & Plan Assessment & Plan (1) Severe sleep apnea: Code(s): G47.30 - Sleep apnea, unspecified Plan Reviewed sleep study results with patient which revealed severe obstructive sleep apnea. Since patient has severe LUIS, will start CPAP therapy. Will send in prescription for CPAP mode and pressure setting of 14 cm with close monitoring for compliance and benefits. Sleep hygiene education reviewed. He is aware if there are any issues with the mask or CPAP machine, he will call the office. All questions were answered and patient is in agreement of plan. Will follow up in 8 weeks. Coding Level of Care Code New Pt Level 3 (00609) Diagnoses Severe sleep apnea G47.30
== END 2023-07-26 11:35 | disposition home or self-care (01) ==
PROVIDERS: PCP Internal Medicine; Referring Provider Internal Medicine; Visit Provider Nurse Practitioner Family
DX: G47.30 Sleep apnea, unspecified (principal)
CPT/HCPCS: 99203

== ENCOUNTER → 2023-07-26 10:48 | Outpatient (BNVA) | payer OTHER, SELFPAY | PROVIDERS: PCP Internal Medicine; Referring Provider Internal Medicine; Visit Provider Nurse Practitioner Family | DX: G47.30 Sleep apnea, unspecified (principal) | CPT/HCPCS: 99202 ==

== ENCOUNTER 2023-08-28 08:37 | Outpatient (AMB) | payer OTHER, SELFPAY ==
--- NOTE | 2023-08-28 09:23 | MHC.OFFWIV ---
Intake Vital Signs 08/28/23 09:26 Height 5 ft 8 in Weight 113.852 kg BMI 38.2 BP 130/74 Pulse 88 Temp 99.1 F Temp Source Temporal Artery Scan Pulse Oximetry (%) 97 Intake Visit Reasons: EP, low back pain ([phone]) Intake Note: pt is here today for lower back pain need ref to have a mri done Patient Tobacco Use Status: Former Tobacco user Allergies Seasonal Allergies Allergy (Mild, Verified 08/28/23 09:25) Sneezing Do you need a note to return to daycare/school/sports/work: No HPI HPI Comments History of Present Illness Details ?This is a 63-year-old male history of LUIS, hypertension, hyperlipidemia, GERD presenting to the clinic for evaluation of lower back pain at started about a year ago s/p work related injury and has been progressively worsening, pain is localized to the lower back does not radiate.? Increases with movement and lifting better at rest.? Patient reports he has had back pain before and this feels similar.?Reports uses marjuanna for pain control. He is here today because he wants an MRI. Patient denies fevers, chills, numbness, tingling, weakness, saddle paresthesias, changes in urinary habits or bowel habits.? No blunt trauma.? ?Physical exam bilateral lower lumbar paraspinous tenderness L>R and discomfort with range of motion of back, no saddle paresthesias.No midline tenderness. ?Ambulating with steady gait normal coordination.?Likely lumbar paraspinous spasm/ strain vs hereniated disc.? Other differentials include lumbago, herniated disc.? Unlikely cauda equina, epidural abscess, cord compression, fracture dislocation. I explained him I cannot order an MRI from an urgent care setting he should follow-up with his PCP. I offered him an x-ray and he agrees to this. ?Plan at this time will discharge I offered prednisone, Lidoderm patch and cyclobenzaprine and patient tells me he is all set. Educated patient on diagnosis and treatment plan, answered all question, patient verbalizes understanding.? At this time patient will be discharged home, advised to return with new or worsening symptoms.? Educated on worrisome signs and symptoms and when to return.? At this time I feel comfortable discharge home. 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 Current occupational exposures/hazards: No Cognitive needs: No Hearing needs: Yes (left ear ) Vision needs: Yes Review of Systems Const Details: Constitutional : No Weight loss, No Fever, No Chills, ENT/Mouth : No Hearing loss, No Ear Pain, No Nasal Congestion, No Sinus Pain, No Hoarseness, No sore throat, No Rhinorrhea, No Swallowing Difficulty Cardiovascular : No Chest Pain, No SOB Respiratory : No Cough, No Dyspnea Gastrointestinal : No Nausea, No Vomiting, No Diarrhea, No abdominal Pain, No Hematochezia, No Melena Genitourinary : No Dysuria, No Urinary Frequency, No Hematuria, No Urinary Incontinence, Musculoskeletal : positive back pain Skin : No Skin Lesions, No rash Neuro : No Weakness, No Numbness, No Paresthesias, no loss of bowel or bladder incontinence, no saddle anesthesia All systems reviewed & are unremarkable except as noted in HPI and below Physical Exam Vital Signs: vss Appearance: Alert.? Oriented X3.? No acute distress.? Head: Normocephalic, atraumatic, no step-offs or deformities Eyes: Pupils equal, round and reactive to light.? Neck: Normal inspection.? Neck supple.? CVS: Normal heart rate and rhythm.? Pulses normal.? Respiratory: No respiratory distress.? Breath sounds normal.? Abdomen: Soft and nontender.? Skin: Skin warm and dry.? Normal skin color.? Normal skin turgor.? Extremities: No lower extremity edema.? No calf ttp. 5/5 strength to bilateral upper and lower extremities Back: No midline tenderness, no C-spine tenderness, full range of motion, no CVA tenderness bilaterally + bilateral lower lumbar paraspinous tenderness and discomfort with range of motion of back, no saddle paresthesias.No midline tenderness ?Ambulating with steady gait normal coordination.?? Neuro: Oriented X 3.? No motor deficit.? No sensory deficit. CN 2-12 intact Assessment & Plan Assessment & Plan (1) Lower back pain: Code(s): M54.50 - Low back pain, unspecified Plan Take your medications as prescribed. If you were prescribed antibiotics today, it is important that you take your medication to their entirety, do not skip any doses, do not finish them early. Follow-up with your primary care provider this week. Return to the emergency department with new or worsening symptoms. Such as fevers, chills, chest pain, shortness of breath, nausea, vomiting, dizziness, headache, vision changes, lethargy In case of emergency call 911 Orders: Orders XR lumbar spine 2-3V Today M54.50 - Low back pain, unspecified Coding Level of Care Code Est Pt Level 3 (80091) Diagnoses Lower back pain M54.50
[2023-08-28 09:26] VITALS: BP 130/74; PULSE 88; TEMP 37.3; O2SAT 97; BMI 38.2
== END 2023-08-28 09:57 | disposition home or self-care (01) ==
PROVIDERS: PCP Internal Medicine; Visit Provider Physician Assistant
DX: M54.50 Low back pain, unspecified (principal)
CPT/HCPCS: 99213

== ENCOUNTER 2023-08-28 09:35 | Outpatient (REF) | payer OTHER, SELFPAY ==
--- NOTE | ~2023-08-28 | XR_ITS ---
EXAMINATION: XR LUMBOSACRAL SPINE CLINICAL INFORMATION: Low back pain COMPARISON: None available. TECHNIQUE: Three views of the lumbosacral spine. FINDINGS: 5 nonrib-bearing lumbar-type vertebral bodies. No acute visible fracture or dislocation. Slight grade 1 retrolisthesis of L3 on L4. Multilevel degenerative changes with disc space narrowing, endplate sclerosis, osteophyte formation, facet arthropathy. Vertebral body heights and disc spaces are maintained. Posterior elements are intact. Paraspinal soft tissues are unremarkable. XR/XR lumbar spine 2-3V IMPRESSION: 1. No acute visible fracture or dislocation. 2. Slight grade 1 retrolisthesis of L3 on L4. 3. Multilevel degenerative changes.
== END 2023-08-28 09:36 | disposition home or self-care (01) ==
LOC: HO.HMGCX 09:35
PROVIDERS: PCP Internal Medicine; Visit Provider Physician Assistant
DX: M54.50 Low back pain, unspecified (principal)
CPT/HCPCS: 72100

== ENCOUNTER 2023-08-29 11:36 | Outpatient (AMB) | payer OTHER, SELFPAY ==
--- NOTE | 2023-08-29 11:41 | A.OFFPC_ITS ---
Vital Signs 3 08/29/23 11:42 Height 5 ft 8 in Weight 251 lb 2 oz BMI 38.2 BP 126/76 Blood Pressure Location Rt brachial Position Sitting Pulse 80 Pulse Source Pulse Oximeter Pulse Oximetry (%) 95 Oxygen Delivery Method Room Air Intake Visit Reasons: Follow Up Walk In~/ MRI Allergies Seasonal Allergies Allergy (Mild, Verified 08/29/23 11:42) Sneezing Medication List - Last Reconciled 08/29/23 by Stef Lucero MD amlodipine 10 mg PO QPM celecoxib (Celebrex) 200 mg PO DAILY CPAP (CPAP Machine/Device) As directed loratadine (Claritin) 10 mg PO DAILY losartan 100 mg PO DAILY omeprazole 20 mg PO DAILY Tobacco use date assessed: 07/18/23 HPI Follow Up Walk In~/ MRI 2 HPI0 Details Patient is 63-year-old gentleman came in today to talk about his lower back pain Which started early last year, as 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 Pain got worse over time until April of last year when he was working with heavy loads he started having excruciating lower back pain radiating to his left leg. Pain continues, and now he feels weak in his left leg and having paresthesia left foot. Pain intensity ranges anywhere from moderate to severe depending on the day. Patient feels that his symptoms are getting worse and is now feeling pain on the right side as well. He had an x-ray done yesterday which shows diminished height of L3-L4. On examination patient is very limited with extension and rotation of his back And can not hold his back in flexion for more than 2 seconds. There is no bowel or bladder issues. Patient would like to see Neurosurgery [facility] for 2nd opinion. And need an updated MRI. 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 Jeramy Slaughter, Mary Ann David, Kamlesh Rodríguez and colleagues, with an educational farhan from [employer]. Review of Systems Const Denies chills and Denies fever(s) ENT Denies epistaxis and Denies nasal discharge Card Denies chest pain Resp Denies chest congestion, Denies cough and Denies hemoptysis GI Denies diarrhea and Denies nausea Skin/Breast Denies rash Neuro Reports no additional complaints Psych Reports no additional complaints Endo Reports no additional complaints Physical exam (Primary Care) Vital Signs: Last Vital Signs Pulse 80 08/29/23 11:42 BP 126/76 08/29/23 11:42 Pulse Ox 95 08/29/23 11:42 Oxygen Delivery Method Room Air 08/29/23 11:42 BMI result Body Mass Index 38.2 Tobacco/Smoking Status: Tobacco use Status Tobacco use date assessed 07/18/23 08/29/23 11:43 Patient Tobacco Use Status Former Tobacco user 08/29/23 11:43 Tobacco use type Cigarette 08/29/23 11:43 e-Cigarette/Vaping Use Never Used 08/29/23 11:43 Thrive Assessment: Date of Thrive Assessment Date Thrive assessed 05/03/23 08/29/23 11:43 Const General: cooperative, comfortable and no acute distress Orientation/consciousness: patient oriented x3 HENMT Head: Yes normocephalic Eyes General: appearance normal, both eyes and all related structures Neck Neck: Yes supple Resp Effort & Inspection: normal respiratory effort, no cough and no stridor Cardio Rhythm: regular rhythm Heart sounds: S1 normal heart sound present and S2 normal heart sound present Back/Spine/Pelvis Back/spine/pelvis image: 2 1. Site of pain, with limited range of motion in extension rotation and flexion, straight leg positive left side Skin General skin exam: turgor normal Neuro Other: Left leg 4/5 motor strength, right leg 5 x 5, sensory grossly diminished left foot compared to right, straight leg positive left side General: patient oriented x3, tone normal and moves all extremities Extrem Right lower extremity: no edema Left lower extremity: no edema Assessment and Plan Assessment & Plan (1) Left lumbar radiculitis: Code(s): M54.16 - Radiculopathy, lumbar region (2) Weakness of left leg: Code(s): R29.898 - Other symptoms and signs involving the musculoskeletal system (3) Severe back pain: Code(s): M54.9 - Dorsalgia, unspecified (4) Paresthesia of left foot: Code(s): R20.2 - Paresthesia of skin Plan Patient is 63-year-old gentleman came in today to talk about his lower back pain Which started early last year, as 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 Pain got worse over time until April of last year when he was working with heavy loads he started having excruciating lower back pain radiating to his left leg. Pain continues, and now he feels weak in his left leg and having paresthesia left foot. Pain intensity ranges anywhere from moderate to severe depending on the day. Patient feels that his symptoms are getting worse and is now feeling pain on the right side as well. He had an x-ray done yesterday which shows diminished height of L3-L4. On examination patient is very limited with extension and rotation of his back And can not hold his back in flexion for more than 2 seconds. There is no bowel or bladder issues. Patient would like to see Neurosurgery [facility] for 2nd opinion. And need an updated MRI. Orders: Orders 2 MR lumbar spine wo con Today M54.16 - Radiculopathy, lumbar region, M54.9 - Dorsalgia, unspecified, R20.2 - Paresthesia of skin, R29.898 - Other symptoms and signs involving the musculoskeletal system Medications: New 2 losartan 100 mg PO DAILY 90 tabs 0RF loratadine (Claritin) 10 mg PO DAILY 90 tabs 0RF Coding Level of Care Code Est Pt Level 4 (75834) Diagnoses Left lumbar radiculitis M54.16 Weakness of left leg R29.898 Severe back pain M54.9 Paresthesia of left foot R20.2
[2023-08-29 11:42] VITALS: BP 126/76; PULSE 80; O2SAT 95; BMI 38.2
== END 2023-08-29 12:40 | disposition home or self-care (01) ==
PROVIDERS: PCP Internal Medicine; Visit Provider Internal Medicine
DX: M54.16 Radiculopathy, lumbar region (principal); R29.898 Other symptoms and signs involving the musculoskeletal system; M54.9 Dorsalgia, unspecified; R20.2 Paresthesia of skin
CPT/HCPCS: 99214

== ENCOUNTER 2023-10-04 11:05 | Outpatient (AMB) | payer OTHER, SELFPAY ==
[2023-10-04 11:08] VITALS: BP 118/64; PULSE 74; O2SAT 95; BMI 37.4
--- NOTE | 2023-10-04 11:08 | A.OFFVIS_ITS ---
Intake Vital Signs 10/04/23 11:08 Height 5 ft 8 in Weight 246 lb BMI 37.4 BP 118/64 Blood Pressure Location Rt brachial Position Sitting Pulse 74 Pulse Source Pulse Oximeter Pulse Oximetry (%) 95 Oxygen Delivery Method Room Air Intake Visit Reasons: sleep apnea : cpap f/u Recoil Spring Winder Required: No Recruiting Operations Consultant: Recruiting Operations Consultant offered & declined Accompanied by: Self / Same As Patient Allergies Seasonal Allergies Allergy (Mild, Verified 10/04/23 11:13) Sneezing Medication List - Last Reconciled 10/04/23 by Sonia Vega LPN amlodipine 10 mg PO QPM celecoxib (Celebrex) 200 mg PO DAILY CPAP (CPAP Machine/Device) As directed loratadine (Claritin) 10 mg PO DAILY losartan 100 mg PO DAILY omeprazole 20 mg PO DAILY HPI sleep apnea : cpap f/u HPI Details Kris is a pleasant 63 year old male, former minimal smoker as a teenager, with underlying history of severe LUIS on CPAP therapy and hypertension. At the last visit, he was started on CPAP therapy through [facility]. He reports approximately 80% compliance. He has noticed more restful sleep, less night time awakenings and increased energy. He is motivated to continue therapy. He denies any respiratory symptoms at this time. 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 Current occupational exposures/hazards: No Cognitive needs: No Hearing needs: Yes (left ear ) Vision needs: Yes Review of Systems Const Denies chills, Denies excessive sweating, Denies fever(s), Denies headache(s) and Denies night sweats Eyes Denies dry eyes, Denies irritation and Denies itchy eyes ENT Reports Normal hearing present and Denies headache(s) Card Denies chest pain, Denies chest pain at rest, Denies chest pain with activity, Denies claudication, Denies leg edema, Denies dyspnea, Denies dyspnea on exertion, Denies orthopnea and Denies paroxysmal nocturnal dyspnea Resp Denies chest congestion, Denies cough, Denies excessive phlegm production, Denies pain on inspiration, Denies pain with cough, Denies dyspnea, Denies dyspnea on exertion, Denies stridor and Denies wheezing Musc Denies myalgias Neuro Reports Normal hearing present and Denies headache(s) Endo Denies excessive sweating Clement/Lymph Denies lymphadenopathy Aller/Immun Denies itchy eyes, Denies seasonal rhinorrhea and Denies wheezing Physical Exam Vital Signs: Last Vital Signs Pulse 74 10/04/23 11:08 BP 118/64 10/04/23 11:08 Pulse Ox 95 10/04/23 11:08 Oxygen Delivery Method Room Air 10/04/23 11:08 BMI result Body Mass Index 37.4 Const General: cooperative, healthy appearing, comfortable, no acute distress, well developed and alert Nutritional Appearance: obese Orientation/consciousness: patient oriented x3 Limitations: no limitations HEENT Head: Yes normal to inspection, Yes normocephalic and Yes atraumatic Ears: hearing grossly normal bilaterally and external ears normal Eyes General: appearance normal, both eyes and all related structures Eyelids: Yes eyelids normal Sclerae: sclerae normal EOM: EOMs intact bilaterally Neck Neck: Yes normal visual inspection and Yes no lymphadenopathy Lymphatic: no lymphadenopathy noted Chest Chest palpation & inspection: normal inspection of the chest Resp Effort & Inspection: normal respiratory effort, able to speak in complete sentences, no audible wheezes, no cough, no stridor, not tachypneic, no tripod positioning and no use of accessory muscles Auscultation: clear to auscultation bilaterally Cardio Jugular venous distension: no JVD Rate: regular rate Rhythm: regular rhythm Skin Other: warm, dry General skin exam: no rashes or lesions noted Neuro General: patient oriented x3 Cranial nerves: Yes Normal hearing present Cognition (Neuro): normal cognition Gait exam (Neuro): Normal gait present Extrem General: Yes normal to inspection, Yes capillary refill normal, Yes no clubbing, cyanosis or edema and Yes no pedal edema Psych Appearance: grossly normal and well kempt Speech and movement: Normal speech and movement present and Clear speech present Affect: normal affect Attitude: cooperative Thought process: Normal thought process present Thought content: Normal thought content present Insight: Good insight present (Psych) Judgement: Good judgement present (Psych) Assessment & Plan Assessment & Plan (1) Severe sleep apnea: Code(s): G47.30 - Sleep apnea, unspecified Plan Unable to obtain compliance report despite reaching out to [facility]. Will attempt again. Patient reportedly compliant and has noticed symptomatic improvements since initiating CPAP therapy. He is aware if there are any issues with the mask or CPAP machine, he will call the office. All questions were answered and patient is in agreement of plan. Will follow up in 6 months or sooner if needed Coding Level of Care Code Est Pt Level 3 (45381) Diagnoses Severe sleep apnea G47.30
== END 2023-10-04 11:31 | disposition home or self-care (01) ==
PROVIDERS: PCP Internal Medicine; Visit Provider Nurse Practitioner Family
DX: G47.30 Sleep apnea, unspecified (principal)
CPT/HCPCS: 99213

== ENCOUNTER → 2023-10-04 11:05 | Outpatient (BNVA) | payer OTHER, SELFPAY | PROVIDERS: PCP Internal Medicine; Visit Provider Nurse Practitioner Family | DX: G47.30 Sleep apnea, unspecified (principal) | CPT/HCPCS: 99212 ==

== ENCOUNTER 2024-01-05 14:12 | Outpatient (AMB) | payer OTHER, SELFPAY ==
--- NOTE | 2024-01-05 14:14 | MHC.PC.OV ---
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 Required: No Accompanied by: Self / Same As Patient Allergies Seasonal Allergies Allergy (Mild, Verified 01/05/24 14:15) Sneezing Medication List - Last Reconciled 01/05/24 by Stef Lucero MD amlodipine 10 mg PO QPM celecoxib (Celebrex) 200 mg PO DAILY CPAP (CPAP Machine/Device) As directed loratadine (Claritin) 10 mg PO DAILY losartan 100 mg PO DAILY omeprazole 20 mg PO DAILY Tobacco use date assessed: 01/05/24 Dental Screening Dental Screen Date: 01/05/24 Did you have a dental visit in the last 12 months?: Yes Did you have a dental problem in the last 6 months where you did not have access to dental care?: No Was dental information given to patient?: Patient has dentist HPI Annual PE HPI Details Patient is 63-year-old gentleman came in today for physical examination Continued to smoke half a pack per day I offered him help which he has declined at this time saying that he will stop by himself by gradually reducing the number of cigarettes he is smoking Patient suffer from osteoarthritis left knee and left hip along with labral tear He is seeing orthopedic, surgery was recommended but insurance declined the procedure At this time pain is manageable he is taking Celebrex Patient is hypertensive and is taking losartan 100 mg with good control of blood pressure and no side effects GERD is stable with omeprazole 20 mg and allergies are stable with Claritin He has lost weight and is out of morbid obesity Had a surgery for disc herniation L4-5 L5 right side And is feeling much better Echocardiogram done October 2022 by previous PCP showed Ejection fraction 60% mild aortic stenosis no aortic insufficiency physiological tricuspid regurgitation normal cavity size Mild aortic stenosis Colonoscopy was April of 2022 next 1 will be in 2025. 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 1. Little interest or pleasure in doing things: not at all 2. Feeling down, depressed, or hopeless: not at all 3. Trouble falling or staying asleep, or sleeping too much: not at all 4. Feeling tired or having little energy: not at all 5. Poor appetite or overeating: not at all 6. Feeling bad about yourself - or that you are a failure or have let yourself or your family down: not at all 7. Trouble concentrating on things, such as reading the newspaper or watching television: not at all 8. Moving or speaking so slowly that other people could have noticed. Or the opposite - being so fidgety or restless that you have been moving around a lot more than usual: not at all 9. Thoughts that you would be better off or of hurting yourself in some way: not at all Total score: 0 Depression Screening Interpretation: Negative Depression Screening Done: Yes 52246 - PHQ-9 Billing: Yes Source: Developed by Drs. Jeramy Slaughter, Mary Ann David, Kamlesh Rodríguez and colleagues, with an educational farhan from [employer]. Thrive Questionnaire Date Thrive assessed: 01/05/24 I am a: Patient What is your living situation today?: I have a steady place to live Within the past 12 months, did the food you bought not last and you didn't have the money to get more?: Never true Within the past 12 months, did you worry whether your food would run out before you got money to buy more?: Never true Do you have trouble paying for medicines?: No Do you have trouble getting transportation to medical appointments?: No Do you have trouble paying your heating and electricity bill?: No Do you have trouble taking care of your child, family member or friend?: No Do you have trouble with day-to-day activities such as bathing, preparing meals, shopping, managing finances, etc.?: No Are you currently unemployed and looking for a job?: No Are you interested in more education?: No Please select the resources that you would like help with: None Currently or been in a relationship where the following occur: no concerns reported THRIVE Score: 0 AUDIT C Alcohol Use Questionnaire (AUDIT-C) 1. How often do you have a drink containing alcohol?: Monthly or less 2. How many drinks containing alcohol do you have on a typical day when you are drinking?: 1 or 2 3. How often do you have six or more drinks on one occasion?: Never Total Score: 1 Score Reviewed/Action Taken: Yes ELI-7 AMB Questionnaire ELI-7 Date ELI - 7 assessed: 01/05/24 Feeling nervous, anxious, or on edge: 0 = Not at all Not being able to stop or control worryin = Not at all Worrying too much about different things: 0 = Not at all Trouble relaxin = Not at all Being so restless that it is hard to sit still: 0 = Not at all Becoming easily annoyed or irritable: 0 = Not at all Feeling afraid as if something awful might happen: 0 = Not at all Total ELI-7 score (0-4 normal; 5-9 mild; 10-14 moderate; 15-21 severe): 0 Source: Developed by Drs. Jeramy Slaughter, Mary Ann David, Kamlesh Rodríguez and colleagues, with an educational farhan from [employer]. ELI-7 Assessment Billing ELI-7 Assessment Tool: ELI-7 Assessment 29720 Review of Systems Const Denies chills, Denies fever(s) and Denies headache(s) Eyes Denies blurry vision ENT Denies headache(s), Denies nasal discharge, Denies nasal obstruction, Denies odynophagia and Denies sinus pain Card Denies chest pain at rest and Denies chest pain with activity Resp Denies cough and Denies hemoptysis GI Denies diarrhea, Denies odynophagia, Denies vomiting and Denies hematemesis Reports as per HPI Musc Denies abnormal gait Skin/Breast Reports as per HPI Neuro Denies Neuro-related abnormal movements, Denies Abnormal speech present, Denies abnormal gait, Denies headache(s) and Denies Sensory deficit (Neuro) Psych Denies mood swings and Denies paranoia Endo Reports as per HPI Clement/Lymph Reports as per HPI Aller/Immun Reports as per HPI Physical exam (Primary Care) Vital Signs: Last Vital Signs Pulse 76 01/05/24 14:15 BP 120/74 01/05/24 14:15 Pulse Ox 95 01/05/24 14:15 Oxygen Delivery Method Room Air 01/05/24 14:15 BMI result Body Mass Index 35.4 Tobacco/Smoking Status: Tobacco use Status Tobacco use date assessed 01/05/24 01/05/24 14:17 Patient Tobacco Use Status Former Tobacco user 01/05/24 14:14 Tobacco use type Cigarette 01/05/24 14:14 e-Cigarette/Vaping Use Never Used 01/05/24 14:14 PHQ-9: PHQ-9 Score PHQ-9: Total score 0 01/05/24 14:28 Depression Screening Interpretation: Negative Thrive Assessment: Date of Thrive Assessment Date Thrive assessed 01/05/24 01/05/24 14:17 Currently or been in a relationship where the following occur: no concerns reported Const General: cooperative, comfortable and no acute distress Orientation/consciousness: patient oriented x3 HENMT Head: Yes normocephalic and Yes atraumatic Eyes General: appearance normal, both eyes and all related structures Pupils: Equal, round and reactive pupils present EOM: EOMs intact bilaterally Neck Neck: Yes supple and No lymphadenopathy Thyroid: Thyroid normal Lymphatic: no lymphadenopathy noted Resp Effort & Inspection: normal respiratory effort and able to speak in complete sentences Auscultation: clear to auscultation bilaterally Cardio Heart sounds: S1 normal heart sound present and S2 normal heart sound present GI Palpation (GI): Soft to palpation and nontender Auscultation: normal bowel sounds General: Yes no CVA tenderness Back/Spine/Pelvis Back: no CVA tenderness Skin General skin exam: elasticity normal and turgor normal Neuro General: patient oriented x3 and gait normal Cranial nerves: Yes Equal, round and reactive pupils present Speech: No Abnormal speech present Sensory Exam: No Sensory deficit (Neuro) Coordination: Romberg test negative Extrem General: Yes normal exam except as noted and No edema Assessment and Plan Assessment & Plan (1) Encounter for general adult medical examination with abnormal findings: Code(s): Z00.01 - Encounter for general adult medical examination with abnormal findings (2) Osteoarthritis of multiple joints: Code(s): M15.9 - Polyosteoarthritis, unspecified Qualifiers: Osteoarthritis type: primary Qualified Code(s): M15.9 - Polyosteoarthritis, unspecified (3) Severe sleep apnea: Code(s): G47.30 - Sleep apnea, unspecified (4) Lipid disorder: Code(s): E78.9 - Disorder of lipoprotein metabolism, unspecified (5) Mild aortic stenosis: Code(s): I35.0 - Nonrheumatic aortic (valve) stenosis (6) Mild tricuspid regurgitation: Code(s): I07.1 - Rheumatic tricuspid insufficiency (7) Labral tear of left hip joint: Code(s): S73.192A - Other sprain of left hip, initial encounter Qualifiers: Encounter type: sequela Qualified Code(s): S73.192S - Other sprain of left hip, sequela (8) Environmental allergies: Code(s): Z91.09 - Other allergy status, other than to drugs and biological substances (9) Chronic GERD: Code(s): K21.9 - Gastro-esophageal reflux disease without esophagitis (10) Hypertension, essential: Code(s): I10 - Essential (primary) hypertension Plan Patient is 63-year-old gentleman came in today for physical examination Continued to smoke half a pack per day I offered him help which he has declined at this time saying that he will stop by himself by gradually reducing the number of cigarettes he is smoking Patient suffer from osteoarthritis left knee and left hip along with labral tear He is seeing orthopedic, surgery was recommended but insurance declined the procedure At this time pain is manageable he is taking Celebrex Patient is hypertensive and is taking losartan 100 mg with good control of blood pressure and no side effects GERD is stable with omeprazole 20 mg and allergies are stable with Claritin He has lost weight and is out of morbid obesity Had a surgery for disc herniation L4-5 L5 right side And is feeling much better Echocardiogram done October 2022 by previous PCP showed Ejection fraction 60% mild aortic stenosis no aortic insufficiency physiological tricuspid regurgitation normal cavity size Mild aortic stenosis Colonoscopy was April of 2022 next 1 will be in 2025. Lab order placed to be done fasting Follow-up 4 months Orders: Orders Complete Blood Count Auto Diff Today E78.9 - Disorder of lipoprotein metabolism, unspecified, I10 - Essential (primary) hypertension, Z00.01 - Encounter for general adult medical examination with abnormal findings Comprehensive [place]. Panel Fast Today E78.9 - Disorder of lipoprotein metabolism, unspecified, I10 - Essential (primary) hypertension, Z00.01 - Encounter for general adult medical examination with abnormal findings Lipid Panel Today E78.9 - Disorder of lipoprotein metabolism, unspecified, I10 - Essential (primary) hypertension, Z00.01 - Encounter for general adult medical examination with abnormal findings Vitamin D 25-OH (D2 and D3) Today E78.9 - Disorder of lipoprotein metabolism, unspecified, I10 - Essential (primary) hypertension, Z00.01 - Encounter for general adult medical examination with abnormal findings TSH reflex Free T4 Today E78.9 - Disorder of lipoprotein metabolism, unspecified, I10 - Essential (primary) hypertension, Z00.01 - Encounter for general adult medical examination with abnormal findings UA CC w/rflx Micro + Cult Today E78.9 - Disorder of lipoprotein metabolism, unspecified, I10 - Essential (primary) hypertension, Z00.01 - Encounter for general adult medical examination with abnormal findings Coding Level of Care Code Est Pt Prev Care 40-64y(61785) Diagnoses Encounter for general adult medical examination with abnormal findings Z00.01 Primary osteoarthritis involving multiple joints M15.9 Osteoarthritis type: primary Severe sleep apnea G47.30 Lipid disorder E78.9 Mild aortic stenosis I35.0 Mild tricuspid regurgitation I07.1 Tear of left acetabular labrum, sequela S73.192S Encounter type: sequela Environmental allergies Z91.09 Chronic GERD K21.9 Hypertension, essential I10 Additional Codes ELI-7 Assessment Billing - ELI-7 Assessment Tool: ELI-7 Assessment [id number] ([id number])
[2024-01-05 14:15] VITALS: BP 120/74; PULSE 76; O2SAT 95; BMI 35.4
== END 2024-01-05 15:11 | disposition home or self-care (01) ==
PROVIDERS: PCP Internal Medicine; Visit Provider Internal Medicine
DX: Z00.00 Encounter for general adult medical examination without abnormal findings (principal); M15.9 Polyosteoarthritis, unspecified; G47.30 Sleep apnea, unspecified; E78.9 Disorder of lipoprotein metabolism, unspecified; I35.0 Nonrheumatic aortic (valve) stenosis; I07.1 Rheumatic tricuspid insufficiency; S73.192S Other sprain of left hip, sequela; Z91.09 Other allergy status, other than to drugs and biological substances; K21.9 Gastro-esophageal reflux disease without esophagitis; I10 Essential (primary) hypertension
CPT/HCPCS: 99396

== ENCOUNTER 2024-01-06 06:44 | Outpatient (REF) | payer OTHER, SELFPAY ==
[2024-01-06 11:57] LABS: MANUAL DIFF FLAG NO
[2024-01-06 12:01] LABS: Basophils Absolute Auto 0.1 X10*3/uL (0.0-0.2); Basophils Percent Auto 0.8 % (0-2); Eosinophils Absolute Auto 0.2 X10*3/uL (0.0-0.4); Eosinophils Percent Auto 2.2 % (0-4); Hemoglobin 15.2 g/dl (14.0-18.0); Imm Gran Abs Auto 0.04 X10*3/uL (0.00-0.03); Imm Gran Pct Auto 0.4 % (0.0-0.4); Lymphocytes Absolute Auto 2.1 X10*3/uL (1.2-4.9); Mean Corpuscular Hemoglobin 30.7 pg (27.0-33.0); Mean Corpuscular Volume 92.9 fL (80.0-98.0); Mean Platelet Volume 10.6 fL (9.4-12.4); Monocytes Absolute Auto 0.7 X10*3/uL (0.1-1.2); Monocytes Percent Auto 6.2 % (2-11); Neutrophils Absolute Auto 7.5 x10*3/uL (2.0-8.3); Neutrophils Percent Auto 70.4 % (45-73); Platelet Count 377 X10*3/uL (160-400); Red Blood Count 4.95 X10*6/uL (4.60-5.80); Red Cell Distribution Width 13.8 % (11.0-16.0); White Blood Count 10.6 X10*3/uL (4.8-10.8)
[2024-01-06 12:11] LABS: Appearance Urine Clear; Color Urine Dark Yellow; Glucose Urine UA Negative (Negative); Leukocyte Esterase Urine Trace (Negative); Nitrite Urine Negative (Negative); PH 6.5 (5.0-9.0); Specific Gravity - Urine 1.025 (1.005-1.025); UMIC TRIGGER UACC YES; Urine Blood Trace (Negative); Urine Ketones Trace mg/dL (Negative); Urine Protein Trace mg/dL (Neg-Trace)
[2024-01-06 12:18] LABS: Bacteria Urine None Seen (None Seen); Hyaline Casts Urine 0-2 /LPF (0-2); Squamous Epithelial Cell Urine 0-2 /HPF (0-2); WBC Urine 0-5 /HPF (0-5)
[2024-01-06 12:33] LABS: Alanine Aminotransferase 18 U/L (0-40); Albumin Level 4.4 g/dL (3.5-5.0); Alkaline Phosphatase 94 U/L (39-117); Anion Gap 12 (12-20); Aspartate Amino Transferase 21 U/L (5-37); Bilirubin Total 0.6 mg/dL (0.0-1.0); Blood Urea Nitrogen 11 mg/dL (9-16); Calcium 9.9 mg/dL (8.4-10.2); Carbon Dioxide 29 mmol/L (22-29); Chloride 105 mmol/L (96-108); Cholesterol 204 mg/dL (<200); Estimated Glomerular Filt Rate > 60; Glucose Fasting 89 mg/dL (60-99); HDL Cholesterol 33 mg/dL (>40); LDL Cholesterol Calculated 132 mg/dL (<100); Potassium 3.5 mmol/L (3.3-5.1); Sodium 142 mmol/L (135-145); Total Protein 7.6 g/dL (6.5-8.0); Triglycerides 198 mg/dL (<150)
[2024-01-06 12:37] LABS: TSH reflex Free T4 2.03 uIU/mL (0.32-4.0)
[2024-01-10 11:59] LABS: Vitamin D 25-OH, D2 <4 ng/mL; Vitamin D 25-OH, D3 20 ng/mL; Vitamin D 25-OH, Total 20 ng/mL (30-100)
== END 2024-01-06 06:45 | disposition home or self-care (01) ==
LOC: HO.HMGCLDS 06:44
PROVIDERS: PCP Internal Medicine; Visit Provider Internal Medicine
DX: Z00.01 Encounter for general adult medical examination with abnormal findings (principal); E78.9 Disorder of lipoprotein metabolism, unspecified; I10 Essential (primary) hypertension
CPT/HCPCS: 36415; 80053; 80061; 81001; 82306; 84443; 85025

== ENCOUNTER 2024-04-10 10:37 | Outpatient (AMB) | payer OTHER, SELFPAY ==
--- NOTE | 2024-04-10 10:40 | A.OFFVIS_ITS ---
Vital Signs 04/10/24 10:41 Height 5 ft 8 in Weight 224 lb BMI 34.1 BP 130/64 Blood Pressure Location Rt brachial Position Sitting Pulse 74 Pulse Source Pulse Oximeter Pulse Oximetry (%) 94 Oxygen Delivery Method Room Air Intake Visit Reasons: 6 month f/u LUIS Allergies Seasonal Allergies Allergy (Mild, Verified 04/10/24 10:43) Sneezing HPI HPI 6 month f/u LUIS: Details: Kris is a pleasant 63 year old male, former minimal smoker as a teenager, with underlying history of severe LUIS (AHI 56) on CPAP therapy and hypertension. He was started on CPAP therapy with significant improvement in nighttime wakenings and daytime fatigue. He reports using on a daily basis, for atleast 7 hours with no issues. He uses a nasal mask and DME is [facility]. Today he presents for routine visit. He denies any respiratory symptoms at this time. 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 Current occupational exposures/hazards: No Cognitive needs: No Hearing needs: Yes (left ear ) Vision needs: Yes Review of Systems Const Denies chills, Denies excessive sweating, Denies fever(s), Denies headache(s) and Denies night sweats Eyes Denies dry eyes, Denies irritation and Denies itchy eyes ENT Reports Normal hearing present and Denies headache(s) Card Denies chest pain, Denies chest pain at rest, Denies chest pain with activity, Denies claudication, Denies leg edema, Denies dyspnea, Denies dyspnea on exertion, Denies orthopnea and Denies paroxysmal nocturnal dyspnea Resp Denies chest congestion, Denies cough, Denies excessive phlegm production, Denies pain on inspiration, Denies pain with cough, Denies dyspnea, Denies dyspnea on exertion, Denies stridor and Denies wheezing Musc Denies myalgias Neuro Reports Normal hearing present and Denies headache(s) Endo Denies excessive sweating Clement/Lymph Denies lymphadenopathy Aller/Immun Denies itchy eyes, Denies seasonal rhinorrhea and Denies wheezing Physical Exam Vital Signs: Last Vital Signs Pulse 74 04/10/24 10:41 BP 130/64 04/10/24 10:41 Pulse Ox 94 04/10/24 10:41 Oxygen Delivery Method Room Air 04/10/24 10:41 BMI result Body Mass Index 34.1 Const General: cooperative, healthy appearing, comfortable, no acute distress, well developed and alert Nutritional Appearance: obese Orientation/consciousness: patient oriented x3 Limitations: no limitations HEENT Head: Yes normal to inspection, Yes normocephalic and Yes atraumatic Ears: hearing grossly normal bilaterally and external ears normal Eyes General: appearance normal, both eyes and all related structures Eyelids: Yes eyelids normal Sclerae: sclerae normal EOM: EOMs intact bilaterally Neck Neck: Yes normal visual inspection and Yes no lymphadenopathy Lymphatic: no lymphadenopathy noted Chest Chest palpation & inspection: normal inspection of the chest Resp Effort & Inspection: normal respiratory effort, able to speak in complete sentences, no audible wheezes, no cough, no stridor, not tachypneic, no tripod positioning and no use of accessory muscles Auscultation: clear to auscultation bilaterally Cardio Jugular venous distension: no JVD Rate: regular rate Rhythm: regular rhythm Skin Other: warm, dry General skin exam: no rashes or lesions noted Neuro General: patient oriented x3 Cranial nerves: Yes Normal hearing present Cognition (Neuro): normal cognition Gait exam (Neuro): Normal gait present Extrem General: Yes normal to inspection, Yes capillary refill normal, Yes no clubbing, cyanosis or edema and Yes no pedal edema Psych Appearance: grossly normal and well kempt Speech and movement: Normal speech and movement present and Clear speech present Affect: normal affect Attitude: cooperative Thought process: Normal thought process present Thought content: Normal thought content present Insight: Good insight present (Psych) Judgement: Good judgement present (Psych) Assessment & Plan Assessment & Plan (1) Severe sleep apnea: Code(s): G47.30 - Sleep apnea, unspecified Category: Medical Plan Unable to obtain compliance report despite reaching out to [facility]. Will attempt again. Patient reportedly compliant and has noticed symptomatic improvements since initiating CPAP therapy. He is aware if there are any issues with the mask or CPAP machine, he will call the office. Will send for overnight oximetry to assess for resolution of nocturnal hypoxemia, that was noted on prior sleep study now that he has been using CPAP consistently. All questions were answered and patient is in agreement of plan. Will follow up in 6 months or sooner if needed Orders: Orders Overnight Pulse Oximetry Today G47.34 - Idiopathic sleep related nonobstructive alveolar hypoventilation Coding Level of Care Code Est Pt Level 3 (28485) Diagnoses Severe sleep apnea G47.30
[2024-04-10 10:41] VITALS: BP 130/64; PULSE 74; O2SAT 94; BMI 34.1
== END 2024-04-10 10:55 | disposition home or self-care (01) ==
PROVIDERS: PCP Internal Medicine; Visit Provider Nurse Practitioner Family
DX: G47.30 Sleep apnea, unspecified (principal)
CPT/HCPCS: 99213

== ENCOUNTER → 2024-04-10 10:37 | Outpatient (BNVA) | payer OTHER, SELFPAY | PROVIDERS: PCP Internal Medicine; Visit Provider Nurse Practitioner Family | DX: G47.30 Sleep apnea, unspecified (principal) | CPT/HCPCS: 99212 ==

== ENCOUNTER 2024-05-15 08:34 | Outpatient (AMB) | payer OTHER, SELFPAY ==
--- NOTE | 2024-05-15 08:35 | A.OFFPC_ITS ---
Vital Signs 05/15/24 08:36 Height 5 ft 8 in Weight 223 lb BMI 33.9 BP 132/68 Blood Pressure Location Rt brachial Position Sitting Pulse 88 Pulse Source Pulse Oximeter Pulse Oximetry (%) 94 Oxygen Delivery Method Room Air Intake Visit Reasons: 4M F/u~ Intake Note: Kris is a 63 year old male who presents to the office today for a 4 month follow up. Pt states he is overall feeling well. Pt states his back is doing better each day and isn't in as much pain as before. Allergies Seasonal Allergies Allergy (Mild, Verified 05/15/24 08:38) Sneezing Medication List - Last Reconciled 05/15/24 by Stef Lucero MD amlodipine 10 mg PO QPM celecoxib (Celebrex) 200 mg PO DAILY CPAP (CPAP Machine/Device) As directed loratadine (Claritin) 10 mg PO DAILY losartan 100 mg PO DAILY omeprazole 20 mg PO DAILY Tobacco use date assessed: 01/05/24 Dental Screening Dental Screen Date: 01/05/24 Did you have a dental visit in the last 12 months?: Yes Did you have a dental problem in the last 6 months where you did not have access to dental care?: No Was dental information given to patient?: Patient has dentist HPI 4M F/u~ HPI Details Patient is 63-year-old gentleman came in today for regular 4 month follow-up We talked about Nicoderm patch and Chantix in detail today After discussion patient decided that he will try to quit smoking on his own rather than adding another medication Patient suffer from osteoarthritis left knee and left hip along with labral tear He is seeing orthopedic, hip surgery was declined by the insurance, and he is not ready to do a knee surgery, left knee is worse than right At this time pain is manageable he is taking Celebrex Patient is hypertensive and is taking losartan 100 mg with good control of blood pressure and no side effects GERD is stable with omeprazole 20 mg and allergies are stable with Claritin Had had surgery for disc herniation L4-5 L5 right side September of 2023 And is feeling much better Echocardiogram done October 2022 by previous PCP showed Ejection fraction 60% mild aortic stenosis no aortic insufficiency physiological tricuspid regurgitation normal cavity size Mild aortic stenosis Colonoscopy was April of 2022 next 1 will be in 2025. 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 1. Little interest or pleasure in doing things: not at all 2. Feeling down, depressed, or hopeless: not at all 3. Trouble falling or staying asleep, or sleeping too much: not at all 4. Feeling tired or having little energy: not at all 5. Poor appetite or overeating: not at all 6. Feeling bad about yourself - or that you are a failure or have let yourself or your family down: not at all 7. Trouble concentrating on things, such as reading the newspaper or watching television: not at all 8. Moving or speaking so slowly that other people could have noticed. Or the opposite - being so fidgety or restless that you have been moving around a lot more than usual: not at all 9. Thoughts that you would be better off or of hurting yourself in some way: not at all Total score: 0 Depression Screening Interpretation: Negative Depression Screening Done: Yes [id number] - PHQ-9 Billing: Yes Source: Developed by Drs. Jeramy Slaughter, Mary Ann David, Kamlesh Rodríguez and colleagues, with an educational farhan from [employer]. Thrive Questionnaire Date Thrive assessed: 01/05/24 I am a: Patient What is your living situation today?: I have a steady place to live Within the past 12 months, did the food you bought not last and you didn't have the money to get more?: Never true Within the past 12 months, did you worry whether your food would run out before you got money to buy more?: Never true Do you have trouble paying for medicines?: No Do you have trouble getting transportation to medical appointments?: No Do you have trouble paying your heating and electricity bill?: No Do you have trouble taking care of your child, family member or friend?: No Do you have trouble with day-to-day activities such as bathing, preparing meals, shopping, managing finances, etc.?: No Are you currently unemployed and looking for a job?: No Are you interested in more education?: No Please select the resources that you would like help with: None Currently or been in a relationship where the following occur: I choose not to answer THRIVE Score: 0 AUDIT C Alcohol Use Questionnaire (AUDIT-C) 1. How often do you have a drink containing alcohol?: Never 3. How often do you have six or more drinks on one occasion?: Never Total Score: 0 ELI-7 AMB Questionnaire ELI-7 Date ELI - 7 assessed: 01/05/24 Feeling nervous, anxious, or on edge: 0 = Not at all Not being able to stop or control worryin = Not at all Worrying too much about different things: 0 = Not at all Trouble relaxin = Not at all Being so restless that it is hard to sit still: 0 = Not at all Becoming easily annoyed or irritable: 0 = Not at all Feeling afraid as if something awful might happen: 0 = Not at all Total ELI-7 score (0-4 normal; 5-9 mild; 10-14 moderate; 15-21 severe): 0 Source: Developed by Drs. Jeramy Slaughter, Mary Ann David, Kamlesh Rodríguez and colleagues, with an educational farhan from [employer]. Review of Systems Const Denies chills and Denies fever(s) ENT Denies epistaxis and Denies nasal discharge Card Denies chest pain Resp Denies chest congestion, Denies cough and Denies hemoptysis GI Denies diarrhea and Denies nausea Skin/Breast Denies rash Neuro Reports no additional complaints Psych Reports no additional complaints Endo Reports no additional complaints Physical exam (Primary Care) Vital Signs: Last Vital Signs Pulse 88 05/15/24 08:36 BP 132/68 05/15/24 08:36 Pulse Ox 94 05/15/24 08:36 Oxygen Delivery Method Room Air 05/15/24 08:36 BMI result Body Mass Index 33.9 Tobacco/Smoking Status: Tobacco use Status Tobacco use date assessed 01/05/24 05/15/24 08:35 Patient Tobacco Use Status Current everyday Tobacco 05/15/24 08:41 Tobacco use type Cigarette 05/15/24 08:35 e-Cigarette/Vaping Use Never Used 05/15/24 08:35 PHQ-9: PHQ-9 Score PHQ-9: Total score 0 05/15/24 08:53 Depression Screening Interpretation: Negative Thrive Assessment: Date of Thrive Assessment Date Thrive assessed 01/05/24 05/15/24 08:35 Currently or been in a relationship where the following occur: I choose not to answer Const General: cooperative, comfortable and no acute distress Orientation/consciousness: patient oriented x3 HENMT Head: Yes normocephalic Eyes General: appearance normal, both eyes and all related structures Neck Neck: Yes supple Resp Effort & Inspection: normal respiratory effort, no cough and no stridor Cardio Rhythm: regular rhythm Heart sounds: S1 normal heart sound present and S2 normal heart sound present Skin General skin exam: turgor normal Neuro General: patient oriented x3, tone normal and moves all extremities Extrem Right lower extremity: no edema Left lower extremity: no edema Assessment and Plan Assessment & Plan (1) Hypertension, essential: Code(s): I10 - Essential (primary) hypertension (2) Osteoarthritis of multiple joints: Code(s): M15.9 - Polyosteoarthritis, unspecified Qualifiers: Osteoarthritis type: primary Qualified Code(s): M15.9 - Polyosteoarthritis, unspecified (3) Severe sleep apnea: Code(s): G47.30 - Sleep apnea, unspecified (4) Lipid disorder: Code(s): E78.9 - Disorder of lipoprotein metabolism, unspecified (5) Mild aortic stenosis: Code(s): I35.0 - Nonrheumatic aortic (valve) stenosis (6) Mild tricuspid regurgitation: Code(s): I07.1 - Rheumatic tricuspid insufficiency (7) Labral tear of left hip joint: Code(s): S73.192A - Other sprain of left hip, initial encounter Qualifiers: Encounter type: sequela Qualified Code(s): S73.192S - Other sprain of left hip, sequela (8) Environmental allergies: Code(s): Z91.09 - Other allergy status, other than to drugs and biological substances (9) Chronic GERD: Code(s): K21.9 - Gastro-esophageal reflux disease without esophagitis Plan Patient is 63-year-old gentleman came in today for regular 4 month follow-up We talked about Nicoderm patch and Chantix in detail today After discussion patient decided that he will try to quit smoking on his own rather than adding another medication Patient suffer from osteoarthritis left knee and left hip along with labral tear He is seeing orthopedic, hip surgery was declined by the insurance, and he is not ready to do a knee surgery, left knee is worse than right At this time pain is manageable he is taking Celebrex Patient is hypertensive and is taking losartan 100 mg with good control of blood pressure and no side effects GERD is stable with omeprazole 20 mg and allergies are stable with Claritin Had had surgery for disc herniation L4-5 L5 right side September of 2023 And is feeling much better Echocardiogram done October 2022 by previous PCP showed Ejection fraction 60% mild aortic stenosis no aortic insufficiency physiological tricuspid regurgitation normal cavity size Mild aortic stenosis Colonoscopy was April of 2022 next 1 will be in 2025. Due for metabolic profile today Follow-up 4 months Orders: Orders Comprehensive Met. Panel Today I10 - Essential (primary) hypertension Coding Level of Care Code Est Pt Level 4 (24952) Complex EM visit Add On G2211 Diagnoses Hypertension, essential I10 Primary osteoarthritis involving multiple joints M15.9 Osteoarthritis type: primary Severe sleep apnea G47.30 Lipid disorder E78.9 Mild aortic stenosis I35.0 Mild tricuspid regurgitation I07.1 Tear of left acetabular labrum, sequela S73.192S Encounter type: sequela Environmental allergies Z91.09 Chronic GERD K21.9
[2024-05-15 08:36] VITALS: BP 132/68; PULSE 88; O2SAT 94; BMI 33.9
== END 2024-05-15 09:01 | disposition home or self-care (01) ==
PROVIDERS: PCP Internal Medicine; Visit Provider Internal Medicine
DX: I10 Essential (primary) hypertension (principal); M15.9 Polyosteoarthritis, unspecified; G47.30 Sleep apnea, unspecified; E78.9 Disorder of lipoprotein metabolism, unspecified; I35.0 Nonrheumatic aortic (valve) stenosis; I07.1 Rheumatic tricuspid insufficiency; S73.192S Other sprain of left hip, sequela; Z91.09 Other allergy status, other than to drugs and biological substances; K21.9 Gastro-esophageal reflux disease without esophagitis
CPT/HCPCS: 99214; G2211

== ENCOUNTER 2024-05-15 09:02 | Outpatient (REF) | payer OTHER, SELFPAY ==
[2024-05-15 10:31] LABS: Alanine Aminotransferase 20 U/L (0-40); Albumin Level 4.2 g/dL (3.5-5.0); Alkaline Phosphatase 78 U/L (39-117); Anion Gap 8 (12-20); Aspartate Amino Transferase 20 U/L (5-37); Bilirubin Total 0.7 mg/dL (0.0-1.0); Blood Urea Nitrogen 15 mg/dL (9-16); Calcium 9.5 mg/dL (8.4-10.2); Carbon Dioxide 29 mmol/L (22-29); Chloride 105 mmol/L (96-108); Estimated Glomerular Filt Rate > 60; Glucose Random 103 mg/dL (60-115); Potassium 3.8 mmol/L (3.3-5.1); Sodium 138 mmol/L (135-145); Total Protein 6.9 g/dL (6.5-8.0)
== END 2024-05-15 09:03 | disposition home or self-care (01) ==
LOC: HO.HMGCLDS 09:02
PROVIDERS: PCP Internal Medicine; Visit Provider Internal Medicine
DX: I10 Essential (primary) hypertension (principal)
CPT/HCPCS: 36415; 80053

== ENCOUNTER 2024-06-20 08:04 | Outpatient (AMB) | payer OTHER, SELFPAY ==
--- NOTE | 2024-06-20 08:23 | AM.OFFWIN_ITS ---
Intake Vital Signs 3 06/20/24 08:24 Height 5 ft 8 in Weight 221 lb BMI 33.6 BP 144/78 H Blood Pressure Location Rt brachial Position Sitting Pulse 64 Pulse Source Pulse Oximeter Pulse Oximetry (%) 98 Oxygen Delivery Method Room Air Intake Visit Reasons: EP-lower left side back pain Intake Note: Patient here for lower back pian that has been bothersome for about 3 days and recently had surgery on it in the beginning of the year. Patient Tobacco Use Status: Current everyday Tobacco user Allergies Seasonal Allergies Allergy (Mild, Verified 06/20/24 08:25) Sneezing Do you need a note to return to daycare/school/sports/work: No HPI HPI Comments 2 History of Present Illness0 Details Patient is a 63-year-old male complaining of 3 days of left-sided low back pain and spasming. He states he was removing nails from a deck for an extended period of time and he thinks he tweaked his back doing that. He had surgery on his low back recently with a disc replacement and fusion and wants to make sure that area is not been affected. He tells me he has been using ibuprofen but it does not really help and it is making his blood pressure elevated so he does not want to use it anymore. He tells me he has also been using Salonpas patches which do not really seem to help either. 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 Current occupational exposures/hazards: No Cognitive needs: No Hearing needs: Yes (left ear ) Vision needs: Yes Review of Systems Const All systems reviewed & are unremarkable except as noted in HPI and below Physical Exam Vital Signs: Last Vital Signs Pulse 64 06/20/24 08:24 BP 144/78 H 06/20/24 08:24 Pulse Ox 98 06/20/24 08:24 Oxygen Delivery Method Room Air 06/20/24 08:24 BMI result Body Mass Index 33.6 Const General: cooperative, healthy appearing and comfortable Orientation/consciousness: patient oriented x3 HEENT Head: Yes normal to inspection and Yes normocephalic General nose exam: Normal external nose present Face and sinus: Yes normal facial exam Eyes General: appearance normal, both eyes and all related structures Resp Effort & Inspection: normal respiratory effort and able to speak in complete sentences Back/Spine/Pelvis Cervical Spine: cervical ROM normal and No Cervical spine tenderness Thoracic/Lumbar Spine: thoracic and lumbar spine normal to inspection, pain with thoraco-lumbar ROM, paraspinal muscle tenderness on the left, thoraco-lumbar spasm on the left, No thoracic spinal tenderness, No lumbar spinal tenderness and other Back/spine/pelvis image: 2 1. Surgical scar 2. Surgical scar 3. Area of tenderness and muscle spasm Neuro General: patient oriented x3 Assessment & Plan Assessment & Plan (1) Low back strain: Code(s): S39.012A - Strain of muscle, fascia and tendon of lower back, initial encounter Qualifiers: Encounter type: initial encounter Qualified Code(s): S39.012A - Strain of muscle, fascia and tendon of lower back, initial encounter Plan: Patient declined prednisone but did want a muscle relaxer so I sent those to his pharmacy, encouraged him to keep using the Salonpas patches and rest Plan See above Medications: New 2 cyclobenzaprine 5 mg PO Q8H PRN 12 tabs 0RF Muscle Spasm Coding Level of Care Code Est Pt Level 3 (90950) Diagnoses Strain of lumbar region, initial encounter S39.012A Encounter type: initial encounter
[2024-06-20 08:24] VITALS: BP 144/78; PULSE 64; O2SAT 98; BMI 33.6
== END 2024-06-20 08:50 | disposition home or self-care (01) ==
PROVIDERS: PCP Internal Medicine; Visit Provider Physician Assistant
DX: S39.012A Strain of muscle, fascia and tendon of lower back, initial encounter (principal)

== ENCOUNTER → 2024-06-20 08:04 | Outpatient (BNVA) | payer OTHER, SELFPAY | PROVIDERS: PCP Internal Medicine | DX: S39.012D Strain of muscle, fascia and tendon of lower back, subsequent encounter (principal) | CPT/HCPCS: 99212 ==

== ENCOUNTER 2024-09-04 15:04 | Outpatient (AMB) | payer OTHER, SELFPAY ==
--- NOTE | 2024-09-04 15:06 | A.OFFPC_ITS ---
Vital Signs 09/04/24 15:07 Height 5 ft 8 in Weight 228 lb BMI 34.7 BP 140/62 H Blood Pressure Location Rt brachial Position Sitting Pulse 96 Pulse Source Pulse Oximeter Pulse Oximetry (%) 94 Oxygen Delivery Method Room Air Intake Visit Reasons: 4 month follow up Allergies Seasonal Allergies Allergy (Mild, Verified 09/04/24 15:10) Sneezing Medication List - Last Reconciled 09/04/24 by Stef Lucero MD amlodipine 10 mg PO QPM celecoxib (Celebrex) 200 mg PO DAILY CPAP (CPAP Machine/Device) As directed cyclobenzaprine 5 mg PO Q8H PRN loratadine (Claritin) 10 mg PO DAILY losartan 100 mg PO DAILY omeprazole 20 mg PO DAILY Tobacco use date assessed: 09/04/24 Dental Screening Dental Screen Date: 09/04/24 Did you have a dental visit in the last 12 months?: Yes Did you have a dental problem in the last 6 months where you did not have access to dental care?: No Was dental information given to patient?: Patient has dentist HPI 4 month follow up HPI Details History - bulleted - The patient is a 64 year old male pres enting with routine follow-up for chronic conditions. - Essential Hypertension: Patient states blood pressure is occasionally elevated but usually normal at home. Currently managed with amlodipine and losartan. - Bilateral Shoulder Pain: Reports recei ving injections every three months for pain management. Right shoulder pain is noted to be worse. Appointment scheduled with surgical instrument repair specialist Dr. Parker. - Osteoarthritis: Aches and pains manage d with Celebrex. Injections for shoulders, knee, and hip administered regularly. - Gastroesophageal Reflux Disease (GERD) : Managed with omeprazole with symptoms currently stable. - Obstructive Sleep Apnea: Patient uses CPAP machine nightly. Problem List - Essential Hypertension - Bilateral Shoulder Pain - Osteoarthritis - Gastroesophageal Reflux Disease (GERD) - Obstructive Sleep Apnea Medications - Amlodipine for Essential Hypertension - Losartan for Essential Hypertension - Celebrex for Osteoarthritis pain - Omeprazole for Gastroesophageal Reflux Disease - CPAP machine usage for Obstructive Sle ep Apnea [place] [facility] - Orthopedic consultation with Dr. Jasmyne foley at [facility] scheduled for shoulder evaluation. Review of Systems - Musculoskeletal: Denies swelling. - Cardiovascular: Denies chest pain. - Respiratory: Denies shortness of breat h. General: No fever no chills neurological: No headaches no dizziness ear nose throat: No sore throat no hearing difficulty no ear pain musculoskeletal: Usual aches and pains nothing new cardiovascular: No syncope, no chest pain, no palpitations gastrointestinal: No nausea vomiting or diarrhea endocrine: No polyuria polydipsia no heat intolerance genitourinary: No dysuria skin: No new complaints Physical Exam general: No acute distress HEENT: No acute findings neck: Supple respiratory system: Able to talk in full sentences, no audible wheeze no stridor cardiovascular: S1-S2 gastrointestinal: No pain extremities: No new findings TRIM CARPENTER: Alert awake oriented x3 motor sensory intact skin: Normal turgor Patient Instructions - Continue current medications as prescr ibed. - Schedule and complete fasting laborato ry tests in the morning. - Maintain regular usage of CPAP machine nightly. - Follow through with orthopedic appoint ment for shoulder evaluation. - Ensure flu vaccination records are up to date. 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 Current occupational exposures/hazards: No Cognitive needs: No Hearing needs: Yes (left ear ) Vision needs: Yes Questionnaire Thrive Questionnaire Date Thrive assessed: 09/04/24 I am a: Patient What is your living situation today?: I have a steady place to live Within the past 12 months, did the food you bought not last and you didn't have the money to get more?: Never true Within the past 12 months, did you worry whether your food would run out before you got money to buy more?: Never true Do you have trouble paying for medicines?: No Do you have trouble getting transportation to medical appointments?: No Do you have trouble paying your heating and electricity bill?: No Do you have trouble taking care of your child, family member or friend?: No Do you have trouble with day-to-day activities such as bathing, preparing meals, shopping, managing finances, etc.?: No Are you currently unemployed and looking for a job?: No Are you interested in more education?: No Please select the resources that you would like help with: None Currently or been in a relationship where the following occur: I choose not to answer THRIVE Score: 0 AUDIT C Alcohol Use Questionnaire (AUDIT-C) 1. How often do you have a drink containing alcohol?: Never 3. How often do you have six or more drinks on one occasion?: Never Total Score: 0 Score Reviewed/Action Taken: Yes ELI-7 AMB Questionnaire ELI-7 Date ELI - 7 assessed: 09/04/24 Source: Developed by Drs. Jeramy Slaughter, Mary Ann David, Kamlesh Rodríguez and colleagues, with an educational farhan from [employer]. Physical exam (Primary Care) Vital Signs: Last Vital Signs Pulse 96 09/04/24 15:07 BP 140/62 H 09/04/24 15:07 Pulse Ox 94 09/04/24 15:07 Oxygen Delivery Method Room Air 09/04/24 15:07 BMI result Body Mass Index 34.7 Tobacco/Smoking Status: Tobacco use Status Tobacco use date assessed 09/04/24 09/04/24 15:11 Patient Tobacco Use Status Current everyday Tobacco 09/04/24 15:07 Tobacco use type Cigarette 09/04/24 15:07 e-Cigarette/Vaping Use Never Used 09/04/24 15:07 Thrive Assessment: Date of Thrive Assessment Date Thrive assessed 09/04/24 09/04/24 15:11 Currently or been in a relationship where the following occur: I choose not to answer Coding Level of Care Code Est Pt Level 4 (19283) Diagnoses Hypertension, essential I10 Chronic GERD K21.9 Lipid disorder E78.9 Sleep apnea in adult G47.30 Arthrosis M19.90 Assessment & Plan Assessment & Plan (1) Hypertension, essential: Code(s): I10 - Essential (primary) hypertension Category: Medical (2) Chronic GERD: Code(s): K21.9 - Gastro-esophageal reflux disease without esophagitis Category: Medical (3) Lipid disorder: Code(s): E78.9 - Disorder of lipoprotein metabolism, unspecified Category: Medical (4) Sleep apnea in adult: Code(s): G47.30 - Sleep apnea, unspecified Category: Medical (5) Arthrosis: Code(s): M19.90 - Unspecified osteoarthritis, unspecified site Category: Medical Plan History - bulleted - The patient is a 64 year old male presenting with routine follow-up for chronic conditions. - Essential Hypertension: Patient states blood pressure is occasionally elevated but usually normal at home. Currently managed with amlodipine and losartan. - Bilateral Shoulder Pain: Reports receiving injections every three months for pain management. Right shoulder pain is noted to be worse. Appointment scheduled with surgical instrument repair specialist Dr. Parker. - Osteoarthritis: Aches and pains managed with Celebrex. Injections for shoulders, knee, and hip administered regularly. - Gastroesophageal Reflux Disease (GERD): Managed with omeprazole with symptoms currently stable. - Obstructive Sleep Apnea: Patient uses CPAP machine nightly. Problem List - Essential Hypertension - Bilateral Shoulder Pain - Osteoarthritis - Gastroesophageal Reflux Disease (GERD) - Obstructive Sleep Apnea Medications - Amlodipine for Essential Hypertension - Losartan for Essential Hypertension - Celebrex for Osteoarthritis pain - Omeprazole for Gastroesophageal Reflux Disease - CPAP machine usage for Obstructive Sleep Apnea [place] [facility] - Orthopedic consultation with Dr. Parker at [facility] scheduled for shoulder evaluation. Review of Systems - Musculoskeletal: Denies swelling. - Cardiovascular: Denies chest pain. - Respiratory: Denies shortness of breath. General: No fever no chills neurological: No headaches no dizziness ear nose throat: No sore throat no hearing difficulty no ear pain musculoskeletal: Usual aches and pains nothing new cardiovascular: No syncope, no chest pain, no palpitations gastrointestinal: No nausea vomiting or diarrhea endocrine: No polyuria polydipsia no heat intolerance genitourinary: No dysuria skin: No new complaints Physical Exam general: No acute distress HEENT: No acute findings neck: Supple respiratory system: Able to talk in full sentences, no audible wheeze no stridor cardiovascular: S1-S2 gastrointestinal: No pain extremities: No new findings TRIM CARPENTER: Alert awake oriented x3 motor sensory intact skin: Normal turgor Patient Instructions - Continue current medications as prescribed. - Schedule and complete fasting laboratory tests in the morning. - Maintain regular usage of CPAP machine nightly. - Follow through with orthopedic appointment for shoulder evaluation. - Ensure flu vaccination records are up to date. Orders: Orders Lipid Panel Today E78.9 - Disorder of lipoprotein metabolism, unspecified, G47.30 - Sleep apnea, unspecified, I10 - Essential (primary) hypertension, K21.9 - Gastro-esophageal reflux disease without esophagitis, M19.90 - Unspecified osteoarthritis, unspecified site Complete Blood Count Auto Diff Today E78.9 - Disorder of lipoprotein metabolism, unspecified, G47.30 - Sleep apnea, unspecified, I10 - Essential (primary) hypertension, K21.9 - Gastro-esophageal reflux disease without esophagitis, M19.90 - Unspecified osteoarthritis, unspecified site Comprehensive [place]. Panel Fast Today E78.9 - Disorder of lipoprotein metabolism, unspecified, G47.30 - Sleep apnea, unspecified, I10 - Essential (primary) hypertension, K21.9 - Gastro-esophageal reflux disease without esophagitis, M19.90 - Unspecified osteoarthritis, unspecified site
[2024-09-04 15:07] VITALS: BP 140/62; PULSE 96; O2SAT 94; BMI 34.7
--- OUTSIDE RECORDS SUMMARY | 2024-09-04 15:37 | XMS_ITS | Data Portability ---
Author Organization [place] - [facility], [facility] Address [address] [place] [address] Care Team Providers Care Visitor Services Coordinator Name Role Phone MATTY LEZAMA Primary Care Provider [phone] Assessment Encounter Date Assessment Date Assessment LastModified by Organization Details LastModified Time 03/13/2024 03/13/2024 I am seeing the patient today under the supervision of Dr Maravilla who was available but who did not see the patient. [email or web address] Not available 03/13/2024 12:46:55 05/06/2024 05/06/2024 I am seeing the patient today under the supervision of Dr. Maravilla who was available but who did not see the patient. HPI: Patient presents today follow-up regarding their Left knee. They have had difficulty up and down stairs sitting standing. Previous injection gave good relief until recent. Problems ambulating. Qdmp-odg-dcyoreg medications are helping somewhat but not significantly. Pain is constant aching sometimes sharp pain with giving out sensations. Past family, medical, social history and review of systems has been reviewed, updated and is located in the patient? s chart. Examination: The patient is well appearing and in no apparent distress. Alert and oriented x3. Gait is symmetric. Examination of the Left knee reveals no evidence of any edema, erythema, or warmth. No Deformity. Range of motion of the knee limited with mild discomfort at the end ranges. Mild effusion. Does have some tenderness to palpation about the medial hemijoint line. No tenderness to palpation about the lateral hemijoint line. Patellofemoral crepitus is noted. mild lateral ligamentous laxity. Negative Radha? s. Calf is supple and nontender. Neurovascularly intact distally. Impression: Left Knee osteoarthritis Plan: We discussed the role of conservative management including medications, physical therapy, injection and bracing. At this point the patient was to proceed with injection. Please see procedure note. They will follow up with us as scheduled. I am seeing the patient today under the supervision of Dr. Maravilla who was available but who did not see the patient. Patient comes to the office with known Left shoulder impingement syndrome. The patient has done well with conservative management for their shoulder pain. Has had increasing discomfort over the past several weeks without injury. Pain is generalized about the shoulder. Off and on discomfort is noted at night. PFMSH and ROS has been reviewed, updated, and signed by me and is located in the patient's chart. PHYSICAL FINDINGS: The patient is well appearing, in no apparent distress, alert and oriented to person, place and time. Gait is symmetric. No significant swelling, warmth or erythema about either shoulder. There is mild tenderness to palpation about the shoulder and AC joint. Active range of motion of the shoulder is near full with mild to moderate pain through mid range manipulations. 4/5 strength of the shoulder, but the rotator cuff seems to fire well. Good stability of the shoulder. Peripheral, vascular, lymphatic examination, skin, neurologic coordination, reflexes, sensation are within normal limits. ASSESSMENT: Impingement SyndromeLeft shoulder. PLAN: The patient has done well with conservative management in regards to the Left shoulder. We discussed the role of medications, physical therapy, injections, and potential surgical interventions depending on conservative outcome Continued conservative management recommended. Along with cortisone injection today. Please see procedure note. Patient will follow up as directed. [email or web address] Not available 05/06/2024 07:28:41 06/12/2024 06/12/2024 I am seeing the patient today under the supervision of Dr Maravilla who was available but who did not see the patient. [email or web address] Not available 06/12/2024 06:35:56 08/07/2024 08/07/2024 I am seeing the patient today under the supervision of Dr Maravilla who was available but who did not see the patient. [email or web address] Not available 08/07/2024 07:22:06 09/02/2024 09/02/2024 I am seeing the patient today under the supervision of Dr Maravilla who was available but who did not see the patient. [email or web address] Not available 09/02/2024 07:57:56 Plan of Treatment Reminders Order Date Submit Date Provider Last Modified By Organization Details Last Modified Time Details Appointments MUST SEE MD 15 2024 08:15A M Ksenia Limon MD Not available Not available Not available RECHECK 15 2024 07:30A M Jaron Kothari PA-C Not available Not available Not available RECHECK 2024 07:45A M Jaron Kothari PA-C Not available Not available Not available Lab None recorded . Referral None recorded . Procedures None recorded . Surgeries None recorded . Imaging None recorded . Medication Orders None recorded . Patient TargetsNo targets recorded. Patient InstructionsNo instructions recorded. Reason for Referral None Reported. Results Created Date Observation Date Name Description Value Unit Range Abnormal Flag Note LastModifiedBy Organization Detail LastModifiedTime 05/18/20 24 05/29/2022 imagi ng/di agnos tic resul t No observ ation record ed. [email or web address] Not Available 04/20 06:07:47 05/18/20 24 04/10/2023 imagi ng/di agnos tic resul t No observ ation record ed. [email or web address] Not Available 04/20 06:08:07 05/18/20 24 10/04/2022 imagi ng/di agnos tic resul t No observ ation record ed. [email or web address] Not Available 04/20 06:08:13 Result Notes None recorded. Problems Name Problem SNOMED Code Status Onset Date Resolution Date Notes Provider Name and Address Organization Details Recorded Time No complaint s 125796907 Active Status: 'I'; Not Available [facility] 4 09:11:10 Impingeme nt syndrome of right shoulder region 310079026972 102 Active 2023 Jaron Kothari PA-C [address], [place], [address] , [facility] 4 13:00:54 Osteoarth ritis of knee 069290754 Active 2023 Jaron Kothari PA-C [address], [place], [address] , [facility] 4 07:21:57 Impingeme nt syndrome of left shoulder region 124356688749 104 Active 2023 Jaron Kothari PA-C [address], [place], [address] , [facility] 4 07:22:02 Osteoarth ritis of left hip joint 814425654545 108 Active 2023 Jaron Kothari PA-C [address], [place], [address] , [facility] 4 06:35:56 Osteoarth ritis of right hip joint 410164203778 107 Active 2023 Jaron Kothari PA-C [address], [place], [address] , [facility] 4 06:35:56 Trochante brendan bursitis of left hip 795729662433 103 Active 2023 Jaron Kothari PA-C [address], [place], [address] , [facility] 4 07:52:19 Pain in left foot 246995911710 107 Active 2016 Problem Code: M79.672; Problem Code Type: ICD-10; Status: 'A'; Not Available [facility] 4 10:55:49 Peroneal tendiniti s of left lower limb 005816022195 107 Active 2016 Problem Code: M76.72; Problem Code Type: ICD-10; Status: 'A'; Not Available [facility] 4 10:55:49 Tendiniti s of left posterior tibial tendon 187859085318 100 Active 2016 Problem Code: M76.822; Problem Code Type: ICD-10; Status: 'A'; Not Available [facility] 4 10:55:50 Pain of left knee joint 842967237657 107 Active 2023 CHARLIE simmons [facility] 4 07:25:44 Osteoarth ritis of left knee joint 843270115568 109 Active 2023 Jaron Kothari PA-C [address], [place], [address] , [facility] 4 07:38:23 Problem Notes None recorded. Procedures Surgical History Date Name Laterality Status Provider Name and Address Organization Details Recorded Time 4 [facility] completed Jaron Kothari PA-C [address], [place], [address], [facility] 09/02/2024 07:57:49 4 JZShoulder INJ completed Jaron Kothari PA-C [address], [place], [address], [facility] 09/02/2024 07:57:52 4 JZKNEE INJ completed Jaron Kothari PA-C [address], [place], [address], [facility] 08/07/2024 07:21:47 4 JZShoulder INJ completed Jaron Kothari PA-C [address], [place], [address], [facility] 08/07/2024 07:21:48 4 [facility] completed Jaron Kothari PA-C [address], [place], [address], [facility] 06/12/2024 07:52:33 4 JZShoulder INJ completed Jaron Kothari PA-C [address], [place], [address], [facility] 06/12/2024 07:52:30 4 JZKNEE INJ completed Jaron Kothari PA-C [address], [place], [address], [facility] 05/06/2024 07:28:22 4 JZShoulder INJ completed Jaron Kothari PA-C [address], [place], [address], [facility] 05/06/2024 07:28:27 4 JZHip US completed Jaron Kothari PA-C [address], [place], [address], [facility] 03/13/2024 13:00:36 4 JZShoulder INJ completed Jaron Kothari PA-C [address], [place], [address], [facility] 03/13/2024 13:00:47 4 JZKNEE INJ completed Jaron Kothari PA-C [address], [place], [address], [facility] 01/18/2024 07:38:15 4 lumbar spinal fusion completed CHARLIE BRISCOE [facility] 01/18/2024 07:28:13 8 soft tissue release with peroneus brevis tendon transfer completed [facility] 01/18/2024 07:31:00 Imaging Results Imaging Date Name Status LastModified by Organiz ation Details LastModified Time 05/29/2022 imaging/diag nostic result completed Information not available 05/18/2024 06:07:47 04/10/2023 imaging/diag nostic result completed Information not available 05/18/2024 06:08:07 10/04/2022 imaging/diag nostic result completed Information not available 05/18/2024 06:08:13 Procedure Notes None recorded. Medical Equipment None Reported. Allergies No known drug allergies Medications Name Sig Start Date Stop Date Status Note LastModified by Organization Details LastModified Time nifedipine ER 30 mg tablet,exte nded release 24 hr TAKE 1 TABLET (30 MG TOTAL) BY MOUTH 1 (ONE) TIME EACH DAY DO NOT CRUSH, CHEW, OR SPLIT. 01/17 completed Not Available Not Available Not Available celecoxib 200 mg capsule TAKE 1 CAPSULE BY MOUTH EVERY DAY active Not Available Not Available No t Available cyclobenzap rine 10 mg tablet TAKE 1 TABLET BY MOUTH EVERY DAY AT BEDTIME NEEDED FOR MUSCLE SPASMS 01/17 completed Not Available Not Available Not Available prednisone 20 mg tablet TAKE 2 TABLETS BY MOUTH EVERY DAY FOR 5 DAYS 01/17 completed Not Available Not Available Not Available amlodipine 5 mg tablet TAKE 1 TABLET BY MOUTH EVERY EVENING. active Not Available Not Available No t Available tramadol 50 mg tablet TAKE 1-2 TABLETS BY MOUTH EVERY 6 HOURS NEEDED FOR PAIN.DO NOT DRIVE WHILE TAKING THIS MEDICATIO N 01/17 completed Not Available Not Available Not Available aspirin 325 mg tablet,yuni yed release TAKE ONE TABLET TWICE A DAY FOR 30 DAYS ONLY. MEDICATIO N TO BE STARTED AFTER SURGERY. 01/17 completed Not Available Not Available Not Available amlodipine 10 mg tablet TAKE 1 TABLET BY MOUTH EVERY EVENING active Not Available Not Available No t Available pantoprazol e 40 mg tablet,yuni yed release TAKE 1 TABLET BY MOUTH DAILY 01/17 completed Not Available Not Available Not Available pseudoephed rine-guaife nesin ER 80-700 mg tablet,exte nded release 1-2 tabs Q 4-[address] o [address] while on this medicatio n 01/02 completed Statu s: 'Disc ontin ued'; Not Available Not Available Not Available docusate sodium 100 mg capsule TAKE 1 CAPSULE BY MOUTH TWICE A DAY DIRECTED. MEDICATIO N TO BE STARTED AFTER SURGERY 01/17 completed Not Available Not Available Not Available losartan 100 mg tablet TAKE 1 TABLET BY MOUTH EVERY DAY active Not Available Not Available No t Available loratadine 10 mg tablet TAKE 1 TABLET BY MOUTH EVERY DAY active Not Available Not Available No t Available oxycodone 5 mg tablet TAKE 1 TABLET EVERY 4 - 6 HOURS NEEDED FOR SEVERE PAIN DO NOT DRIVE WHILE TAKING THIS MEDICATIO N 01/17 completed Not Available Not Available Not Available escitalopra m 10 mg tablet TAKE 1 TABLET BY MOUTH EVERY DAY 01/17 completed Not Available Not Available Not Available cyclobenzap rine 5 mg tablet TAKE 1 TABLET ORALLY EVERY 8 HOURS NEEDED FOR MUSCLE SPASM active Not Available Not Available No t Available Nexium active Not Available Not Availa ble Not Available oxycodone HCl-oxycodo ne-ASA 1 every 4 - 6 hours as needed for severe painDO NOT DRIVE WHILE TAKING THIS MEDICATIO N 03/13 completed Statu s: 'Curr ent'; Not Available Not Available Not Available Vitals Date Recorded Body height Body mass index (BMI) Body weight Provider Name and Address Organization Details Last Updated DateTime 03/13/2024 173.99 cm 34.5 kg/m2 140603.25 g [facility] 03/13/2024 12:47:31 Date Recorded Body height Provider Name an d Address Organization Details Last Updated DateTime 05/06/2024 173.99 cm [facility] 05/06/2024 07:19:59 Date Recorded Body height Body mass index (BMI) Body weight Provider Name and Address Organization Details Last Updated DateTime 06/12/2024 173.99 cm 34.5 kg/m2 486783.25 [facility] 06/12/2024 07:51:05 Date Recorded Body height Provider Name an d Address Organization Details Last Updated DateTime 08/07/2024 173.99 cm Ellyn Carrillo [address] [facility] [address], [place], [address], [facility] 08/07/2024 07:21:34 Date Recorded Body height Body mass index (BMI) Body weight Provider Name and Address Organization Details Last Updated DateTime 09/02/2024 173.99 cm 34.5 kg/m2 538400.25 g [facility] 09/02/2024 07:35:24 Social History Question Answer Notes LastModified by Organizat ion Details LastModified Time Tobacco Smoking Status Smoker, Current Status Unknown CHARLIE simmons [facility] 01/18/2024 07:27:29 Do You Use Any Illicit Or Recreational Drugs? No Information not available 01/18/2024 Do You Or Have You Ever Used Any Other Forms Of Tobacco Or Nicotine? No Information not available 01/18/2024 Sex: Unknown Functional Status None recorded. Mental Status None recorded. Family History Nothing Reported. Medical History Condition Response Allergies/Hayfever N Coronary Artery Disease N Breathing or lung disorders N Anxiety/Depression N Emphysema N Nerve Disorders N Thyroid Problems N COPD N Pacemaker N Kidney/Bladder Problems N Anemia N Vascular Disease N Heart Trouble N Heart Attack ([place]) N Gastrointestinal Disease N Cholesterol N Diabetes N Autoimmune disease N Inflammatory Joint disease N Bleeding Disorder N Orthotics N Seizures/Epilepsy N Arthritis N Blood Clot N AIDS/HIV N Congestive Heart Failure (CHF) N Acid Reflux (GERD) N Cancer N Stroke N Asthma N Peripheral Vascular Disease N Sleep Apnea N Hepatitis N Heart Disease N Rheumatoid Arthritis N Pulmonary Embolism N Arrhythmia N Headaches N Fibromyalgia N Hypertension Y Osteoporosis N Past Encounters Encounter ID Performer Location Encounter Start Date Encounter Closed Date Diagnosis/Indication Diagnosis SNOMED-CT Code Diagnosis ICD10 Code [id number] Jeramy Elliott MD [facility] [address] [place] [address] 01/05/2024 07:44:15 01/25/2024 07:55:27 Low back pain 311352406 M54.50 [id number] Jaron Kothari PA-C [facility] [address] [place] [address] 01/18/2024 07:21:36 02/08/2024 15:46:01 Pain of left knee joint 3229866664 92064 M25.562 Osteoarthr itis of left knee joint 4259576853 53210 M17.12 [id number] Jaron Kothari PA-C [facility] [address] [place] [address] 03/13/2024 12:35:37 04/09/2024 11:44:50 Osteoarthritis of left hip joint 3811175130 40407 M16.12 Impingemen t syndrome of right shoulder region 1521131874 79899 M75.41 [id number] ALETHEA Carrillo [address] [place] [address] 05/06/2024 07:18:00 06/03/2024 09:37:49 Osteoarthritis of knee 696131277 M17.9 Impingemen t syndrome of left shoulder region 1402265800 74623 M75.42 [id number] Jaron Kothari PA-C [facility] [address] [place] [address] 06/12/2024 07:46:13 07/01/2024 13:15:52 Trochanteric bursitis of left hip 4979231331 59050 M70.62 Impingemen t syndrome of right shoulder region 6975199828 49661 M75.41 [id number] Jaron Kothari PA-C [facility] [address] [place] [address] 08/07/2024 07:06:53 09/03/2024 11:58:53 Osteoarthritis of knee 293882261 M17.9 Impingemen t syndrome of left shoulder region 3778421188 58489 M75.42 [id number] Jaron Kothari PA-C [facility] [address] [place] [address] 09/02/2024 07:31:04 09/02/2024 07:58:19 Osteoarthritis of knee 054319602 M17.9 Impingemen t syndrome of right shoulder region 0315048853 15495 M75.41 Health Concerns Section Related Observation LastModified by Organization Detai ls LastModified Time None Recorded Concern Status LastModified by Organization Details LastModified Time None Recorded Advance Directives Directive None Recorded Payers Encounter Date Sequence Insurance Name Policy Number Policy Clemons Covered Member ID Clemons Member ID Guarantor Name 03/13/2024 1 [facility] [employer] [facility] [employer] (MEDICAID HMO) MATTHEW Todd [id number] Kris Todd 05/06/2024 1 [facility] [employer] [facility] [employer] (MEDICAID HMO) MATTHEW Todd [id number] Kris Todd 06/12/2024 1 [facility] [employer] NET PLAN (MEDICAID HMO) MATTHEW Todd [id number] Kris Todd 08/07/2024 1 [facility] [employer] [facility] [employer] (MEDICAID HMO) MATTHEW Todd [id number] Kris Todd 09/02/2024 1 [facility] [employer] [facility] [employer] (MEDICAID HMO) MATTHEW Todd [id number] Kris Todd
== END 2024-09-04 15:49 | disposition home or self-care (01) ==
PROVIDERS: PCP Internal Medicine; Visit Provider Internal Medicine
DX: I10 Essential (primary) hypertension (principal); K21.9 Gastro-esophageal reflux disease without esophagitis; E78.9 Disorder of lipoprotein metabolism, unspecified; G47.30 Sleep apnea, unspecified; M19.90 Unspecified osteoarthritis, unspecified site

== ENCOUNTER → 2024-09-04 15:04 | Outpatient (BNVA) | payer OTHER, SELFPAY | PROVIDERS: PCP Internal Medicine; Visit Provider Internal Medicine | DX: I10 Essential (primary) hypertension (principal); K21.9 Gastro-esophageal reflux disease without esophagitis; E78.9 Disorder of lipoprotein metabolism, unspecified; G47.30 Sleep apnea, unspecified; M19.90 Unspecified osteoarthritis, unspecified site | CPT/HCPCS: 99212 ==

== ENCOUNTER 2024-09-05 06:12 | Outpatient (REF) | payer OTHER, SELFPAY ==
--- OUTSIDE RECORDS SUMMARY | 2024-09-05 06:14 | XMS_ITS | Continuity of Care Document ---
Author Organization [place] - [facility] 3rd floor Address [address] [place] [address] Care Team Providers Care Pharmacy Informaticist Name Role Phone MATTY LEZAMA Primary Care Provider Assessment Encounter Date Assessment Date Assessment LastModified by Organization Details LastModified Time 06/12/2024 06/12/2024 I am seeing the patient today under the supervision of Dr Maravilla who was available but who did not see the patient. vanda Not available 06/12/2024 06:35:56 Plan of Treatment Reminders Order Date Submit Date Provider Last Modified By Organization Details Last Modified Time Details Appointments MUST SEE MD 15 2024 08:15A M Ksenia Limon MD Not available Not available Not available RECHECK 2024 07:30A M Jaron Kothari PA-C Not [...] Abnormal Flag Note LastModifiedBy Organization Detail LastModifiedTime 05/18/2005/29/2022 imagi ng/di agnos tic resul t No observ ation record ed. [email or web address] Not Available 04/20 06:07:47 05/18/20 24 04/10/2023 imagi ng/di agnos tic resul t No observ ation record ed. [email or web address] Not Available 04/20 06:08:07 08/10/04/2022 imagi ng/di agnos tic resul t No observ ation record ed. [email or web address] Not Available 04/20 06:08:13 Result Notes None recorded. Problems Name Problem SNOMED Code Status Onset Date Resolution Date Notes Provider Name and Address Organization Details Recorded Time No complaint s 552371242 Active Status: 'I'; Not Available [facility] 4 09:11:10 Impingeme nt syndrome of right shoulder region 454793404122 102 Active 2023 Jaron Kothari PA-C [address], [place], [address] , [facility] 4 13:00:54 Osteoarth ritis of knee 884959808 Active 2023 Jaron Kothari PA-C [address], [place], [address] , [facility] 4 07:21:57 Impingeme nt syndrome of left shoulder region 260764693684 104 Active 2023 Jaron Kothari PA-C [address], [place], [address] , [facility] 4 07:22:02 Osteoarth ritis of left hip joint 491542749118 108 Active 2023 Jaron Kothari PA-C [address], [place], [address] , [facility] 4 06:35:56 Osteoarth ritis of right hip joint 518626898771 107 Active 2023 Jaron Kothari PA-C [address], [place], [address] , [facility] 4 06:35:56 Trochante brendan bursitis of left hip 780864640346 103 Active 2023 Jaron Kothari PA-C [address], [place], [address] , [facility] 4 07:52:19 Pain in left foot 222355366183 107 Active 2016 Problem Code: M79.672; Problem Code Type: ICD-10; Status: 'A'; Not Available [facility] 4 10:55:49 Peroneal tendiniti s of left lower limb 171116442700 107 Active 2016 Problem Code: M76.72; Problem Code Type: ICD-10; Status: 'A'; Not Available [facility] 4 10:55:49 Tendiniti s of left posterior tibial tendon 215441563072 100 Active 2016 Problem Code: M76.822; Problem Code Type: ICD-10; Status: 'A'; Not Available [facility] 4 10:55:50 Pain of left knee joint 700741716830 107 [facility] 2023 [facility] 4 07:25:44 Osteoarth ritis of left knee joint 208635332680 109 Active 2023 Jaron Kothari PA-C [address], [place], [address] , [facility] 4 07:38:23 Problem Notes None recorded. Procedures Surgical History Date Name Laterality Status Provider Name and Address Organization Details Recorded Time 4 Rajan completed Jaron Kothari PA-C [address], [place], [address], [facility] 09/02/2024 07:57:49 4 JZShoulder INJ completed Jaron Kothari PA-C [address], [place], [address], [facility] 09/02/2024 07:57:52 4 JZKNEE INJ completed Jaron Kothari PA-C [address], [place], [address], [facility] 08/07/2024 07:21:47 4 JZShoulder INJ completed Jaron Kothari PA-C [address], [place], [address], [facility] 08/07/2024 07:21:48 4 JZHip completed Jaron Kothari PA-C [address], [place], [address], [facility] 06/12/2024 07:52:33 4 JZShoulder INJ completed Jaron Kothari PA-C [address], [place], [address], [facility] 06/12/2024 07:52:30 4 JZKNEE INJ completed Jaron Kothari PA-C [address], [place], [address], [facility] 05/06/2024 07:28:22 4 JZShoulder INJ completed Jaron Kothari PA-C [address], [place], [address], [facility] 05/06/2024 07:28:27 4 JZHip completed Jaron Kothari PA-C [address], [place], [address], [facility] 03/13/2024 13:00:36 4 JZShoulder INJ completed Jaron Kothari PA-C [address], [place], [address], [facility] 03/13/2024 13:00:47 4 JZKNEE INJ completed Jaron Kothari PA-C [address], [place], [address], [facility] 01/18/2024 07:38:15 4 lumbar spinal fusion completed CHARLIE BRISCOE [facility] 01/18/2024 07:28:13 8 soft tissue release with peroneus brevis tendon transfer completed CHARLIE BRISCOE [place] [facility] 01/18/2024 07:31:00 Imaging Results None recorded. Procedure Notes None recorded. Medical Equipment None [...] Updated DateTime 06/12/2024 173.99 cm 34.5 kg/m2 734665.25 g Rodrigo Barajas [facility] 06/12/2024 07:51:05 Social History Question Answer Notes LastModified by Organizat ion Details LastModified Time Tobacco Smoking Status Smoker, Current Status Unknown [facility] 01/18/2024 07:27:29 Do You Use Any Illicit Or Recreational Drugs? No Information not available 01/18/2024 Do You Or Have You Ever Used Any Other Forms Of Tobacco Or Nicotine? No Information not available 01/18/2024 Sex: Unknown Functional Status None recorded. Mental Status None recorded. Family History Nothing Reported. Medical History Condition Response Allergies/Hayfever N Coronary Artery Disease N Anxiety/Depression N Breathing or lung disorders N Emphysema N Nerve Disorders N Thyroid Problems N COPD N Pacemaker N Anemia N Kidney/Bladder Problems N Vascular Disease N Heart Trouble N Gastrointestinal Disease N Heart Attack (RI) N Cholesterol N Diabetes N Autoimmune disease [...] Diagnosis/Indication Diagnosis SNOMED-CT Code Diagnosis ICD10 Code [id number] ALETHEA Carr[facility] 3rd floor [address] [place] [address] 06/12/2024 07:46:13 07/01/2024 13:15:52 Trochanteric bursitis of left hip 0706808466 06702 M70.62 Impingemen t syndrome of right shoulder region 4669069204 93618 M75.41 Health Concerns Section Related Observation LastModified by Organization Detai ls LastModified Time None Recorded Concern Status LastModified by Organization Details LastModified Time None Recorded Payers Encounter Date Sequence Insurance Name Policy Number Policy Clemons Covered Member ID Clemons Member ID Guarantor Name 06/12/2024 1 [facility] (MEDICAID HMO) [facility] Kris Todd [id number] Kris Todd
[2024-09-05 10:05] LABS: MANUAL DIFF FLAG NO
[2024-09-05 10:12] LABS: Basophils Percent Auto 0.3 % (0-2); Eosinophils Percent Auto 0.2 % (0-4); Hematocrit 42.5 % (42.0-52.0); Hemoglobin 14.6 g/dl (14.0-18.0); Imm Gran Abs Auto 0.19 X10*3/uL (0.00-0.03); Imm Gran Pct Auto 1.6 % (0.0-0.4); Lymphocytes Percent Auto 16.4 % (20-40); Mean Corpuscular HGB Conc 34.4 g/dl (31.0-36.0); Mean Corpuscular Hemoglobin 32.9 pg (27.0-33.0); Mean Corpuscular Volume 95.7 fL (80.0-98.0); Mean Platelet Volume 10.3 fL (9.4-12.4); Monocytes Absolute Auto 0.9 X10*3/uL (0.1-1.2); Monocytes Percent Auto 7.6 % (2-11); Neutrophils Absolute Auto 8.9 x10*3/uL (2.0-8.3); Neutrophils Percent Auto 73.9 % (45-73); Platelet Count 358 X10*3/uL (160-400); Red Blood Count 4.44 X10*6/uL (4.60-5.80); Red Cell Distribution Width 14.1 % (11.0-16.0)
[2024-09-05 10:30] LABS: Alanine Aminotransferase 32 U/L (0-40); Albumin Level 4.4 g/dL (3.5-5.0); Alkaline Phosphatase 68 U/L (39-117); Anion Gap 12 (12-20); Aspartate Amino Transferase 28 U/L (5-37); Bilirubin Total 0.5 mg/dL (0.0-1.0); Blood Urea Nitrogen 15 mg/dL (9-16); Calcium 9.3 mg/dL (8.4-10.2); Carbon Dioxide 28 mmol/L (22-29); Chloride 105 mmol/L (96-108); Cholesterol 238 mg/dL (<200); Estimated Glomerular Filt Rate > 60; Glucose Fasting 91 mg/dL (60-99); HDL Cholesterol 44 mg/dL (>40); LDL Cholesterol Calculated 163 mg/dL (<100); Potassium 3.7 mmol/L (3.3-5.1); Sodium 141 mmol/L (135-145); Total Protein 7.3 g/dL (6.5-8.0); Triglycerides 158 mg/dL (<150)
== END 2024-09-05 06:13 | disposition home or self-care (01) ==
LOC: HO.HMGCLDS 06:12
PROVIDERS: PCP Internal Medicine; Visit Provider Internal Medicine
DX: I10 Essential (primary) hypertension (principal); K21.9 Gastro-esophageal reflux disease without esophagitis; E78.9 Disorder of lipoprotein metabolism, unspecified; G47.30 Sleep apnea, unspecified; M19.90 Unspecified osteoarthritis, unspecified site
CPT/HCPCS: 36415; 80053; 80061; 85025

== ENCOUNTER 2024-11-12 08:06 | Outpatient (AMB) | payer OTHER, SELFPAY ==
--- OUTSIDE RECORDS SUMMARY | 2024-11-12 08:15 | XMS_ITS | Clinical Summary ---
Author Organization [facility] Address [address] [place] [address] Care Team Providers Care Air Grinder Name Role Phone Stef Lucero MD Primary Care Provider [phone] Surgical History Surgery Date Site/Laterality Comments OTHER SURGICAL HISTORY PROCEDURE: ---- OTHER ----; COMMENT: Deviated Septum FOOT SURGERY Left PROCEDURE: HISTORICAL FOOT SURGERY Social History Tobacco Use Types Packs/Day Years Used Date Smoking Tobacco: Never Smokeless Tobacco: Never Alcohol Use Standard Drinks/Week Comments Yes 0 (1 standard drink = 0.6 oz pur e alcohol) Sex and Gender Information Value Date Recorded Sex Assigned at Not on file Legal Sex Male 6:55 AM EST Gender Identity Not on file Sexual Orientation Not on file Obstetrics History Last Filed Vital Signs Vital Sign Reading Time Taken Comments Blood Pressure - - Pulse - - Temperature - - Respiratory Rate - - Oxygen Saturation - - Inhaled Oxygen Concentration - - Weight 115 kg (254 lb) 10/27/2022 7:34 AM EST Height 177.8 cm (5' 10 ) 10/27/2022 7:34 AM EST Body Mass Index 36.45 10/27/2022 7:34 AM EST Plan of Treatment Health Maintenance Due Date Last Done Comments DTaP,Tdap,and Td Vaccines (1 - Tdap) 1980 Pneumococcal Vaccine: 50+ Ye ars (1 of 1 - PCV) 2011 Zoster Vaccines (1 of 2) 2011 Cholesterol Screening (Lipid Panel) 08/21/2022 Colorectal Cancer Screening: Colonoscopy 08/21/2022 Depression Screening 08/21/2022 HIV Screening 08/21/2022 Hepatitis C Screening 08/21/2022 Social Influencers of Health Screening 08/21/2022 COVID-19 Vaccine ( - 2023-2 5 season) 2024 Influenza Vaccine (#1) 2024 RSV Immunization Patients 60 + Years Old (1 - 1-dose 75+ series) 2036 HIB Vaccines Aged Out No longer eligi ble based on patient's age to complete this topic HPV Vaccines Aged Out No longer eligi ble based on patient's age to complete this topic Hepatitis A Vaccines Aged Out No long er eligible based on patient's age to complete this topic Hepatitis B Vaccines Aged Out No long er eligible based on patient's age to complete this topic IPV Vaccines Aged Out No longer eligi ble based on patient's age to complete this topic MMR Vaccines Aged Out No longer eligi ble based on patient's age to complete this topic Meningococcal ACWY Vaccine Aged Out N o longer eligible based on patient's age to complete this topic Meningococcal B Vacine Aged Out No lo nger eligible based on patient's age to complete this topic Pneumococcal Vaccine: Pediat rics (0 to 5 Years) and At-Risk Patients (6 to 64 Years) Aged Out No longer eligible b ased on patient's age to complete this topic RSV Immunization Patients Un jose 20 months Aged Out No longer eligible b ased on patient's age to complete this topic Varicella Vaccines Aged Out No longer eligible based on patient's age to complete this topic Care Teams Air Grinder Relationship Specialty Start Date End Date Stef Lucero MD [address] [place] [address] PCP - General 10/27/22
--- OUTSIDE RECORDS SUMMARY | 2024-11-12 08:15 | XMS_ITS | Clinical Summary ---
Author Organization [facility] Address [address] [facility] [address] [place] [address] Phone Care Team Providers Care International Trade Manager Name Role Phone Stef Lucero MD Primary Care Provider [phone] Allergies Active Allergy Reactions Criticality Noted Date Comments Mixed Ragweed 01/01/2024 Pollen Extract 01/01/2024 Tramadol 01/01/2024 Other Reaction(s): severe stomach upset Medications losartan (COZAAR) 100 MG tablet Take 100 mg by mouth at bed time 02/24/2023 Active cetirizine (ZyrTEC) 10 MG tablet Take 10 mg by mouth 1 (one) time each day Active omeprazole (PriLOSEC) [address] capsule Take 20 mg by mouth 1 (one) time each day Do not crush or chew. Active amLODIPine (NORVASC) 10 MG tablet Take 10 mg by mouth 1 (one) time each day Active celecoxib (CeleBREX) 200 MG capsule Take by mouth 1 (one) time each day 11/17/2023 Active Active Problems Problem Noted Date Diagnosed Date Obese class II 01/01/2024 Severe obesity 05/16/2023 05/16/2023 Family History Medical History Relation Comments Alcohol abuse Father Cancer Father COPD Mother Relation Status Comments Father Mother Social History Tobacco Use Types Packs/Day Years Used Date Smoking Tobacco: Never Passive Smoke Exposure: Never Smokeless Tobacco: Never Tobacco Cessation:Counseling Given: No Alcohol Use Standard Drinks/Week Comments Never 0 (1 standard drink = 0.6 oz pur e alcohol) Sex and Gender Information Value Date Recorded Sex Assigned at Not on file Legal Sex Male 4:02 PM EDT Gender Identity Not on file Sexual Orientation Not on file Last Filed Vital Signs Vital Sign Reading Time Taken Comments Blood Pressure 118/69 01/01/2024 1:54 PM EDT Pulse 100 01/01/2024 1:54 PM EDT Temperature - - Respiratory Rate - - Oxygen Saturation 97% 06/19/2023 2:31 PM EDT Inhaled Oxygen Concentration - - Weight 105 kg (232 lb) 01/01/2024 1:54 PM EDT Height - - Body Mass Index - - Plan of Treatment Upcoming Encounters Date Type Department Care Team (Late st Contact Info) Description 12/30/2024 1:00 PM EDT [facility] [address] [address] Marquis Harris MD [address] [address] Health Maintenance Due Date Last Done Comments Pneumococcal Vaccine: Pediat rics (0 to 5 Years) and At-Risk Patients (6 to 64 Years) (1 of 2 - PCV) 1967 Colorectal Cancer Screening: Annual FOBT 2010 Colorectal Cancer Screening: Colonoscopy 2010 Colorectal Cancer Screening: Sigmoidoscopy 2010 Influenza Vaccine (#1) 2024 Hepatitis B Vaccine Aged Out No longe r eligible based on patient's age to complete this topic [place] [address] [place] [address] MEDICAID [facility] MEDICAID Care Teams International Trade Manager Relationship Specialty Start Date End Date Stef Lucero MD [address] [place] [address] PCP - General Internal Medicine 05/17/23
[2024-11-12 08:20] VITALS: BP 122/70; PULSE 90; RESP 20; TEMP 37; O2SAT 95; BMI 34.5
--- NOTE | 2024-11-12 08:20 | AM.OFFWIN_ITS ---
Intake Vital Signs 11/12/24 08:20 Height 5 ft 8 in Weight 227 lb BMI 34.5 BP 122/70 Blood Pressure Location Lt brachial Position Sitting Respiration 20 Pulse 90 Pulse Source Pulse Oximeter Temp 98.6 F Temp Source Oral Pulse Oximetry (%) 95 Oxygen Delivery Method Room Air Intake Visit Reasons: EP pain in between shoulder blades Intake Note: Pt is here today for a walk in visit. Pt c/o pain in between shoulder blades for 4 days. Patient Tobacco Use Status: Current everyday Tobacco user Allergies Seasonal Allergies Allergy (Mild, Verified 11/12/24 08:21) Sneezing tramadol Allergy (Verified 11/12/24 08:24) upset stomach HPI HPI Comments History of Present Illness Details This is a 64-year-old male with a past medical history of hypertension, arthritis, hyperlipidemia and tobacco use presenting for evaluation of pain in his upper back between his shoulder blades that has been present for the past 4 days. Patient states the pain is worsening and is not improved with both ibuprofen and Celebrex. Patient additionally has used ice compresses and heat without relief. Patient denies having any chest pain, shortness for breath, cough, nausea, vomiting or hemoptysis. Patient denies any injury or trauma preceding the onset of his symptoms and states ?I just woke up like this?. 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 Current occupational exposures/hazards: No Cognitive needs: No Hearing needs: Yes (left ear ) Vision needs: Yes Review of Systems Const All systems reviewed & are unremarkable except as noted in HPI and below ENT Reports no additional complaints and Denies neck pain Card Reports no additional complaints and Denies chest pain Resp Denies cough and Denies hemoptysis Reports no additional complaints Musc Reports back pain (upper thoracic between my shoulder blades ) and Denies neck pain Skin/Breast Reports system reviewed and no additional complaints, except as documented Neuro Reports no additional complaints Psych Reports no additional complaints Endo Reports no additional complaints Clement/Lymph Reports no additional complaints Physical Exam Vital Signs: Last Vital Signs Temp 98.6 F 11/12/24 08:20 Pulse 90 11/12/24 08:20 Resp 20 11/12/24 08:20 BP 122/70 11/12/24 08:20 Pulse Ox 95 11/12/24 08:20 Oxygen Delivery Method Room Air 11/12/24 08:20 BMI result Body Mass Index 34.5 Const General: cooperative, healthy appearing, comfortable, no acute distress, well developed, alert, awake and Physically active Nutritional Appearance: well nourished Orientation/consciousness: patient oriented x3 Limitations: no limitations Resp Effort & Inspection: able to speak in complete sentences, no cough and respiratory effort not decreased Auscultation: clear to auscultation bilaterally (with decreased breath sounds right base; no wheeze or rhonchi) and diminished lung sounds on the right in the lower lung de la paz Cardio Rate: regular rate Rhythm: regular rhythm Back/Spine/Pelvis Thoracic/Lumbar Spine: thoraco-lumbar ROM normal and paraspinal muscle tenderness on the left in the upper thoracic Skin General skin exam: no rashes or lesions noted Neuro General: patient oriented x3 Psych Appearance: grossly normal Mental Status: mental status grossly normal Insight: Good insight present (Psych) Judgement: Good judgement present (Psych) Results Reviewed Results Reviewed: EKG, normal sinus rhythm rate of 82 beats per minute. No acute findings noted on chest x-ray. Patient will be treated for a left rhomboid strain. Strict return precautions reviewed as related to ACS. Assessment & Plan Assessment & Plan (1) Thoracic back pain: Comment: No acute findings noted on chest x-ray or EKG. Code(s): M54.6 - Pain in thoracic spine Qualifiers: Chronicity: acute Back pain laterality: left Qualified Code(s): M54.6 - Pain in thoracic spine Plan: Patient will be treated for a left rhomboid strain with prednisone and methocarbamol. (2) Rhomboid muscle strain: Code(s): S29.012A - Strain of muscle and tendon of back wall of thorax, initial encounter Qualifiers: Encounter type: initial encounter Qualified Code(s): S29.012A - Strain of muscle and tendon of back wall of thorax, initial encounter Plan: Prednisone 40 mg x4 days; methocarbamol 750 mg q.i.d. x4 days Orders: Orders XR chest 2V Today M54.6 - Pain in thoracic spine AMB EKG-In Office Today M54.6 - Pain in thoracic spine Medications: New prednisone 40 mg (2 x 20 mg) PO DAILY 8 tabs 0RF methocarbamol 1,000 mg PO QID 20 tabs 0RF Coding Level of Care Code Est Pt Level 4 (26074) Diagnoses Acute left-sided thoracic back pain M54.6 Chronicity: acute Back pain laterality: left Strain of rhomboid muscle, initial encounter S29.012A Encounter type: initial encounter Time Spent (min) 35
== END 2024-11-12 09:29 | disposition home or self-care (01) ==
PROVIDERS: PCP Internal Medicine; Visit Provider Physician Assistant
DX: M54.6 Pain in thoracic spine (principal); S29.012A Strain of muscle and tendon of back wall of thorax, initial encounter

== ENCOUNTER 2024-11-12 08:06 | Outpatient (REF) | payer OTHER, SELFPAY ==
--- NOTE | ~2024-11-12 | XR_ITS ---
EXAMINATION: XR CHEST 2 VIEWS HISTORY: M54.6 - Pain in thoracic spine COMPARISON: There are no prior studies for comparison. FINDINGS: PA and lateral views of the chest are submitted. The lungs are expanded and clear. There is no pleural effusion, pneumothorax, or pulmonary vascular congestion. The heart is normal in size. The bones are intact. XR/XR chest 2V IMPRESSION: Clear lungs. Electronically signed by: Jeramy Ortez MD 11/12/2024 09:04 AM STEVE
--- OUTSIDE RECORDS SUMMARY | 2024-11-12 09:29 | XMS_ITS | Clinical Summary ---
Author Organization [facility] Address [address] [place] [address] Care Team Providers Care Auto Body Straightener Name Role Phone Stef Lucero MD Primary Care Provider [phone] Surgical History Surgery Date Site/Laterality Comments OTHER [...] age to complete this topic Care Teams Auto Body Straightener Relationship Specialty Start Date End Date Stef Lucero MD [address] [place] [address] PCP - General 10/27/22
--- OUTSIDE RECORDS SUMMARY | 2024-11-12 09:29 | XMS_ITS | Clinical Summary ---
Author Organization [facility] Address [address] [facility] [address] [place] [address] Phone Care Team Providers Care Title One Teacher Name Role Phone Stef Lucero MD Primary Care Provider [phone] Allergies Active Allergy Reactions Criticality Noted Date [...] [facility] [address] [address] Marquis Harris MD [address] [address] Health Maintenance Due Date Last [...] patient's age to complete this topic [place] [address] [place] [address] MEDICAID [facility] MEDICAID Care Teams Title One Teacher Relationship Specialty Start Date End Date Stef Lucero MD [address] [place] [address] PCP - General Internal Medicine 05/17/23
== END 2024-11-12 08:07 | disposition home or self-care (01) ==
LOC: HO.HMGCX 08:06
PROVIDERS: PCP Internal Medicine; Visit Provider Physician Assistant
DX: M54.6 Pain in thoracic spine (principal); S29.012A Strain of muscle and tendon of back wall of thorax, initial encounter
CPT/HCPCS: 71046; 99212

== ENCOUNTER → 2024-11-12 08:51 | Outpatient (BNV) | payer OTHER, SELFPAY | PROVIDERS: PCP Internal Medicine; Visit Provider Radiology Diagnostic Radiology | DX: M54.6 Pain in thoracic spine (principal) | CPT/HCPCS: 71046 ==

== ENCOUNTER 2024-11-26 08:41 | Outpatient (AMB) | payer OTHER, SELFPAY ==
--- OUTSIDE RECORDS SUMMARY | 2024-11-26 09:30 | XMS_ITS | Clinical Summary ---
Author Organization [facility] Address [address] [facility] [address] [place] [address] Phone Care Team Providers Care Geek Squad Agent Name Role Phone Stef Lucero MD Primary Care Provider [phone] Allergies Active Allergy Reactions Criticality Noted Date [...] [facility] Visit [facility] [address] [address] Marquis Harris MD [address] [address] Health Maintenance Due Date Last [...] patient's age to complete this topic [place] [place] [address] MEDICAID [facility] MEDICAID Care Teams Geek Squad Agent Relationship Specialty Start Date End Date Stef Lucero MD [address] [place] [address] PCP - General Internal Medicine 05/17/23
--- OUTSIDE RECORDS SUMMARY | 2024-11-26 09:30 | XMS_ITS | Clinical Summary ---
Author Organization [facility] Address [address] [place] [address] Care Team Providers Care Hospital Director Name Role Phone Stef Lucero MD Primary Care Provider [phone] Surgical History Surgery Date Site/Laterality Comments OTHER [...] age to complete this topic Care Teams Hospital Director Relationship Specialty Start Date End Date Stef Lucero MD [address] [place] [address] PCP - General 10/27/22
--- NOTE | 2024-11-26 09:57 | MHC.OFFVIS ---
Vital Signs 11/26/24 10:02 Height 5 ft 8 in Weight 227 lb BMI 34.5 Handedness Right Intake Visit Reasons: New Pt - B/L shoulder pain Intake Note: Krsi is a 64 year old right hand dominant male who presents today as a new patient for a evaluation of his bilateral shoulder pain. MRI was done in his right shoulder on 09/26/24. Patient reports ongoing pain for about 6 months to a year. History of injection with 3 moths of relief. He states that his right shoulder is worse than the left shoulder. Patient notices that his pain is worse when he is reaching for his back which is mainly on the anterior and posterior aspect of the shoulder and down in his bicep. Impression: 1. Full thickness retracted tears of supraspinatus and Infraspinatus 2. Tendinopathy of the subscapularis with full thickness tear in its superior fibers. 3. Tear of the long biceps tendon with inferior retraction. 4. Mild glenohumeral degenerative change. Allergies Seasonal Allergies Allergy (Mild, Verified 11/26/24 10:01) Sneezing tramadol Allergy (Verified 11/26/24 10:01) upset stomach HPI HPI New Pt - B/L shoulder pain: Details: Mr. Todd is a 64-year-old right hand dominant male who presents to the office today for bilateral shoulder pain. This is a second opinion appointment. Patient has been seen by [facility] but unfortunately they do develop take his insurance any longer needs to establish care with another orthopedic. She had a right shoulder MRI which was obtained at [facility] and he was told that he had a right shoulder rotator cuff tear and biceps tendon tear. He has been receiving injections in bilateral shoulders and is looking to establish care with our practice at repeat injections. 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 No ecchymosis, erythema, or edema. Lacking 20 degrees of forward flexion and abduction. Positive cross-body reach. Significant weakness with empty can. Negative drop arm. NVI. Right/Left shoulder: Normal to inspection. No ecchymosis, erythema, or edema. Full shoulder ROM in all planes. Positive cross-body reach. 4/5 strength with empty can. Negative drop arm. NVI. Office Procedures AMB Joint Injection/Aspiration Joint Injection/Aspiration Primary Site: left shoulder Secondary Site: right shoulder Prep: site was prepped using aseptic technique, ethochloride spray was applied and injection warnings given Injected: 80 mg of, DepoMedrol, with 8 mL of (2% plain lidocaine) and in the subcromial space Approach Used: posterolateral Procedure: The patient tolerated the procedure well, but had some pain with the injection and there was some relief with the local anesthesia Coding 24574 - Large joint Procedure code (CPT) selection complete Assessment & Plan Assessment & Plan (1) Rotator cuff tear arthropathy of right shoulder: Code(s): M75.101 - Unspecified rotator cuff tear or rupture of right shoulder, not specified as traumatic; M12.811 - Other specific arthropathies, not elsewhere classified, right shoulder Category: Medical (2) Biceps tendon tear: Code(s): S46.219A - Strain of muscle, fascia and tendon of other parts of biceps, unspecified arm, initial encounter Category: Medical Plan Mr. Todd is a 64-year-old right hand dominant male who presents to the office today for bilateral shoulder pain. This is a second opinion appointment. Patient has been seen by new [facility] but unfortunately they do develop take his insurance any longer needs to establish care with another orthopedic. She had a right shoulder MRI which was obtained at [facility] and he was told that he had a right shoulder rotator cuff tear and biceps tendon tear. He has been receiving injections in bilateral shoulders and is looking to establish care with our practice at repeat injections. The patient was offered a cortisone injection in bilateral shoulders with 80 mg of DepoMedrol. The patient was explained the risks, benefits, and alternatives to receiving this injection. After receiving consent for the injection, the patient had the procedure done while in the office today. The patient tolerated the procedure well with no complications. Due to the patient?s history of diabetes, they were instructed to monitor their blood glucose level. The patient was informed that they could see a rise in their numbers and if the numbers became too high, they were instructed to call their PCP. The patient was also informed that they could have facial flushing as a side effect of the injection, but this will pass. MRI right shoulder 09/26/2024: 1. full-thickness retracted tears of the supraspinatus and infraspinatus 2. tendinopathy of the subscapularis with full-thickness tear of the superior fibers 3. Tear of the long biceps tendon with inferior retraction 4. Mild glenohumeral degenerative changes Follow-up will be p.r.n., or sooner if needed X-rays of bilateral shoulders which were obtained while in the office today and were reviewed by me, Tamara Yang PA-C, revealed no acute fracture dislocation. 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
[2024-11-26 10:02] VITALS: BMI 34.5
== END 2024-11-26 10:35 | disposition home or self-care (01) ==
LOC: HO.HOS 08:42
PROVIDERS: PCP Internal Medicine; Visit Provider Physician Assistant
DX: M75.101 Unspecified rotator cuff tear or rupture of right shoulder, not specified as traumatic (principal); M12.811 Other specific arthropathies, not elsewhere classified, right shoulder; S46.211A Strain of muscle, fascia and tendon of other parts of biceps, right arm, initial encounter
CPT/HCPCS: 20610; 99204

== ENCOUNTER → 2024-11-26 09:42 | Outpatient (BNV) | payer OTHER, SELFPAY | PROVIDERS: Visit Provider Radiology Diagnostic Radiology | DX: M25.512 Pain in left shoulder (principal); M25.511 Pain in right shoulder | CPT/HCPCS: 73030 ==

== ENCOUNTER 2024-11-26 12:11 | Outpatient (REF) | payer OTHER, SELFPAY ==
--- NOTE | ~2024-11-26 | XR_ITS ---
EXAMINATION: XR SHOULDER, LEFT CLINICAL INFORMATION: M25.519 - Pain in unspecified shoulder COMPARISON: None available. TECHNIQUE: AP external rotation, Grashey, scapular Y, and axillary views of the left shoulder. FINDINGS: There is a 9 mm gap at the acromioclavicular joint. No acute cortical disruption or gross alignment. No lytic or blastic lesions. XR/XR shoulder LT min 2V IMPRESSION: 9 mm gap at the acromioclavicular joint suggesting subluxation. Electronically signed by: Anton Eastman MD 11/26/2024 02:34 PM EDT
--- NOTE | ~2024-11-26 | XR_ITS ---
EXAMINATION: XR SHOULDER, RIGHT CLINICAL INFORMATION: M25.519 - Pain in unspecified shoulder COMPARISON: None available. TECHNIQUE: AP external rotation, Grashey, scapular Y, and axillary views of the right shoulder. FINDINGS: There is a 9 mm gap at the acromioclavicular joint. No acute cortical disruption or malalignment. No lytic or blastic lesions. Vascular calcifications in the right side of the neck. XR/XR shoulder RT min 2V IMPRESSION: 9 mm gap at the acromioclavicular joint concerning for subluxation. Electronically signed by: Anton Eastman MD 11/26/2024 02:35 PM EDT
--- OUTSIDE RECORDS SUMMARY | 2024-11-27 14:12 | XMS_ITS | Clinical Summary ---
Author Organization [facility] Address [address] [facility] [address] [place] [address] Phone Care Team Providers Care Intercell Connector Placer Name Role Phone Stef Lucero MD Primary Care Provider [phone] Allergies Active Allergy Reactions Criticality Noted Date [...] Office Visit [facility] [address] [address] Marquis Harris MD [address] [address] Health Maintenance Due Date Last [...] patient's age to complete this topic Insurance [address] [place] [address] [place] [address] [facility] [place] [address] Care Teams Intercell Connector Placer Relationship Specialty Start Date End Date Stef Lucero MD [address] [place] [address] PCP - General Internal Medicine 05/17/23
--- OUTSIDE RECORDS SUMMARY | 2024-11-27 14:12 | XMS_ITS | Clinical Summary ---
Author Organization [facility] Address [address] [place] [address] Care Team Providers Care Record Clerk Salesperson Name Role Phone Stef Lucero MD Primary Care Provider [phone] Surgical History Surgery Date Site/Laterality Comments OTHER [...] age to complete this topic Care Teams Record Clerk Salesperson Relationship Specialty Start Date End Date Stef Lucero MD [address] [place] [address] PCP - General 10/27/22
== END 2024-11-26 12:12 | disposition home or self-care (01) ==
LOC: HO.HOSX 12:11
PROVIDERS: Visit Provider Physician Assistant
DX: M75.101 Unspecified rotator cuff tear or rupture of right shoulder, not specified as traumatic (principal); M12.811 Other specific arthropathies, not elsewhere classified, right shoulder; S46.211A Strain of muscle, fascia and tendon of other parts of biceps, right arm, initial encounter; M25.511 Pain in right shoulder; M25.512 Pain in left shoulder
CPT/HCPCS: 20610; 73030; 99202; J1010; J2003

== ENCOUNTER → 2024-12-04 07:31 | Outpatient (BNV) | payer OTHER, SELFPAY | PROVIDERS: PCP Internal Medicine; Visit Provider Radiology Diagnostic Radiology | DX: M75.102 Unspecified rotator cuff tear or rupture of left shoulder, not specified as traumatic (principal) | CPT/HCPCS: 73221 ==

== ENCOUNTER 2024-12-04 07:57 | Outpatient (REF) | payer OTHER, SELFPAY ==
--- NOTE | ~2024-12-04 | MR_ITS ---
CLINICAL HISTORY: M75.102 - Unspecified rotator cuff tear or rupture of left shoulder, not... MR left shoulder without gadolinium Comparison: DX/AL/SR - XR SHOULDER LT MIN 2V - 11/26/24 09:42 EDT Findings: No acute fracture or pathologic bone lesion. Mild acromioclavicular and glenohumeral osteoarthritis. No discrete glenoid labral tear. Fluid is present within the subscapularis recess and subcoracoid bursa. Complete tear of the supraspinatus tendon insertion which is retracted to the humeral head apex. Complete tear of the infraspinatus tendon insertion retracted to the humeral head apex. The teres minor tendon is intact. High-grade partial-thickness articular sided tearing of distal subscapularis tendon. Mild supraspinatus and infraspinatus muscle atrophy. Partial tearing of the long head of the biceps tendon within the bicipital groove without evidence of full-thickness tear or retraction. A small amount of fluid and debris are present within the biceps tendon sheath. IMPRESSION: 1. Complete tears of the supraspinatus and infraspinatus tendon insertions which are retracted to the humeral head apex and associated with mild muscle atrophy. 2. Partial tearing of the long head of the biceps tendon within the bicipital groove without evidence of full-thickness tear or retraction. Small amount of fluid and debris within the biceps tendon sheath. 3. Mild acromioclavicular and glenohumeral osteoarthritis. 4. Moderate amount of fluid within the subscapularis recess and subcoracoid bursa. This document has been electronically signed by: Rodrigo Velez DO on 12/05/2024 10:43:17
--- OUTSIDE RECORDS SUMMARY | 2024-12-04 08:00 | XMS_ITS | Clinical Summary ---
Author Organization [facility] Address [address] [facility] [address] [place] [address] Phone Care Team Providers Care Marble Cleaner Name Role Phone Stef Lucero MD Primary Care Provider [phone] Allergies Active Allergy Reactions Criticality Noted Date [...] Office Visit [facility] P.. [address] [address] Marquis Harris MD [address] [address] Health Maintenance Due Date Last [...] age to complete this topic Care Teams Marble Cleaner Relationship Specialty Start Date End Date Stef Lucero MD [address] [place] [address] PCP - General Internal Medicine 05/17/23
--- OUTSIDE RECORDS SUMMARY | 2024-12-04 08:00 | XMS_ITS | Clinical Summary ---
Author Organization [facility] Address [address] [place] [address] Care Team Providers Care Lining Finisher Name Role Phone Stef Lucero MD Primary Care Provider [phone] Surgical History Surgery Date Site/Laterality Comments OTHER [...] age to complete this topic Care Teams Lining Finisher Relationship Specialty Start Date End Date Stef Lucero MD [address] [place] [address] PCP - General 10/27/22
== END 2024-12-04 07:58 | disposition home or self-care (01) ==
LOC: HO.MRI 07:57
PROVIDERS: PCP Internal Medicine; Visit Provider Physician Assistant
DX: M75.102 Unspecified rotator cuff tear or rupture of left shoulder, not specified as traumatic (principal)
CPT/HCPCS: 73221

== ENCOUNTER 2024-12-17 08:12 | Outpatient (AMB) | payer OTHER, SELFPAY ==
--- NOTE | 2024-12-17 08:24 | A.OFFVIS_ITS ---
Vital Signs 12/17/24 08:27 Height 5 ft 8 in Weight 227 lb BMI 34.5 Intake Visit Reasons: New Prob - left knee pain Intake Note: Kris is a 64 year old male who presents today for a evaluation of his left knee pain. Hx of injections with relief. Patient reports ongoing pain for more than a year. He mentions that his pain is worse when he is walking, sitting and using the stairs. patient locates his pain on the medial aspect of the knee. Patient has tried icing and Tylenol with mild relief. Patient is looking to get an injection. Allergies Seasonal Allergies Allergy (Mild, Verified 12/17/24 08:25) Sneezing tramadol Allergy (Verified 12/17/24 08:25) upset stomach HPI HPI New Prob - left knee pain: Details: The patient is a 64-year-old male presenting with chronic left knee pain management. He experiences longstanding knee pain associated with osteoarthritis, alleviated temporarily by knee and shoulder injections. This knee pain, localized mostly to the medial side, is aggravated by movements such as twisting. 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 Current occupational exposures/hazards: No Cognitive needs: No Hearing needs: Yes (left ear ) Vision needs: Yes Review of Systems Const All systems reviewed & are unremarkable except as noted in HPI and below Physical Exam Vital Signs: BMI result Body Mass Index 34.5 Const General: cooperative, healthy appearing and no acute distress Resp Effort & Inspection: normal respiratory effort and able to speak in complete sentences Cardio Rate: regular rate Peripheral pulses: Peripheral pulses 2+ throughout Skin Lesions: no lesions Rashes: no rashes Extrem Other: Left knee normal to inspection no ecchymosis erythema or joint effusion. Crepitus with range of motion. Range of motion 0120. Tenderness to palpation medial joint line. NVI. Office Procedures AMB Joint Injection/Aspiration Joint Injection/Aspiration Primary Site: left knee Prep: site was prepped using aseptic technique, ethochloride spray was applied and injection warnings given Injected: 80 mg of, DepoMedrol, with 8 mL of (2% plain lidocaine) and in the joint Approach Used: anterolateral Procedure: The patient tolerated the procedure well, but had some pain with the injection and there was some relief with the local anesthesia Coding 35202 - Large joint Procedure code (CPT) selection complete Assessment & Plan Assessment & Plan (1) Osteoarthritis of left knee: Code(s): M17.12 - Unilateral primary osteoarthritis, left knee Category: Medical Plan During the consultation, the patient's history of osteoarthritis and shoulder injuries was revisited, correlating symptoms to the MRI results confirming chronic rotator cuff tears with retraction and muscle artophy. The discussion included risks and benefits of current non-surgical management of the shoulder, emphasizing potential future consideration for shoulder replacement only if pain becomes unmanageable. The patient was offered a cortisone injection in the left knee with 80mg of DepoMedrol. The patient was explained the risks, benefits, and alternatives to receiving this injection. After receiving consent for the injection, the patient had the procedure done while in the office today. The patient tolerated the procedure well with no complications. The rationale for continued knee injections was shared as a part of symptom control, valuing their effectiveness for the patient. The need for continued joint function and quality of life is prioritized, with ongoing assessment to determine future surgical intervention necessity. Patient?s informed understanding and alignment with treatment options were confirmed, acknowledging occupational challenges posed by musculoskeletal concerns. X-rays of the left knee which were obtained while in the office today and were reviewed by me, Tamara Yang PA-C, revealed degenerative changes. No acute fracture dislocation. MRI obtained of the left shoulder on 12/04/2024: IMPRESSION: 1. Complete tears of the supraspinatus and infraspinatus tendon insertions which are retracted to the humeral head apex and associated with mild muscle atrophy. 2. Partial tearing of the long head of the biceps tendon within the bicipital groove without evidence of full-thickness tear or retraction. Small amount of fluid and debris within the biceps tendon sheath. 3. Mild acromioclavicular and glenohumeral osteoarthritis. 4. Moderate amount of fluid within the subscapularis recess and subcoracoid bursa. Orders: Orders XR knee LT 3V Today M25.569 - Pain in unspecified knee XR knee RT 1V Today M25.569 - Pain in unspecified knee Coding Level of Care Code Est Pt Level 4 (80048) Diagnoses Osteoarthritis of left knee M17.12 CPT Codes Coding - 34458 Large joint: 17416 - Large joint ([id number])
[2024-12-17 08:27] VITALS: BMI 34.5
--- OUTSIDE RECORDS SUMMARY | 2024-12-17 08:28 | XMS_ITS | Clinical Summary ---
Author Organization [facility] Address [address] [facility] [address] [place] [address] Phone Care Team Providers Care Side Laster Tack Name Role Phone Stef Lucero MD Primary Care Provider [phone] Allergies Active Allergy Reactions Criticality Noted Date [...] [facility] Visit [facility] [address] [address] Marquis Harris MD [address] [address] Health Maintenance Due Date Last [...] patient's age to complete this topic [place] [place] [address] [place] [address] Care Teams Side Laster Tack Relationship Specialty Start Date End Date Stef Lucero MD [address] [place] [address] PCP - General Internal Medicine 05/17/23
--- OUTSIDE RECORDS SUMMARY | 2024-12-17 08:28 | XMS_ITS | Clinical Summary ---
Author Organization [facility] Address [address] [place] [address] Care Team Providers Care Publicity Consultant Name Role Phone Stef Lucero MD Primary Care Provider [phone] Surgical History Surgery Date Site/Laterality Comments OTHER [...] age to complete this topic Care Teams Publicity Consultant Relationship Specialty Start Date End Date Stef Lucero MD [address] [place] [address] PCP - General 10/27/22
== END 2024-12-17 08:43 | disposition home or self-care (01) ==
LOC: HO.HOS 08:13
PROVIDERS: PCP Internal Medicine; Visit Provider Physician Assistant
DX: M17.12 Unilateral primary osteoarthritis, left knee (principal)
CPT/HCPCS: 20610; 99214

== ENCOUNTER → 2024-12-17 08:15 | Outpatient (BNV) | payer OTHER, SELFPAY | PROVIDERS: Visit Provider Radiology Diagnostic Radiology | DX: M17.12 Unilateral primary osteoarthritis, left knee (principal) | CPT/HCPCS: 73562 ==

== ENCOUNTER 2024-12-17 10:37 | Outpatient (REF) | payer OTHER, SELFPAY ==
--- NOTE | ~2024-12-17 | XR_ITS ---
EXAMINATION: XR KNEE, LEFT CLINICAL INFORMATION: M25.569 - Pain in unspecified knee COMPARISON: None available. TECHNIQUE: AP view bilateral knees standing, lateral and patellofemoral views left knee. FINDINGS: Right Knee: Normal imaging appearance. Minimal medial compartment joint space narrowing. 8 mm linear metallic density immediately medial to the medial femoral condyle, possibly artifact versus foreign body. Vascular calcifications in the soft tissues. Left Knee: No fracture, dislocation, or suspicious bone lesion. Moderate medial compartment, and mild lateral and patellofemoral compartment osteoarthrosis. Minimal varus angulation of the knee. Alignment otherwise normal. No evidence of joint effusion. Soft tissues appear normal aside from vascular calcifications. XR/XR knee LT 3V IMPRESSION: 1. Moderate medial compartment, and mild lateral and patellofemoral compartment osteoarthritis left knee. Electronically signed by: Alfredito Duvall MD 12/17/2024 02:41 PM EDT
--- OUTSIDE RECORDS SUMMARY | 2024-12-18 12:32 | XMS_ITS | Clinical Summary ---
Author Organization [facility] Address [address] [facility] [address] [place] [address] Phone Care Team Providers Care Wood And Wood Products Labourer Name Role Phone Stef Lucero MD Primary Care Provider [phone] Allergies Active Allergy Reactions Criticality Noted Date [...] Office Visit [facility] P. [address] [address] Marquis Harris MD [address] [address] Health Maintenance Due Date Last Done Comments Pneumococcal Vaccine: Pediat rics (0 to 5 Years) and At-Risk Patients (6 to 64 Years) (1 of 2 - PCV) 1967 Colorectal Cancer Screening: Annual FOBT 2010 Colorectal Cancer Screening: Colonoscopy 2010 Colorectal Cancer Screening: Sigmoidoscopy 2010 Influenza Vaccine (Season Ended) 2025 Hepatitis B Vaccine Aged Out No longe r eligible based on patient's age to complete this topic [place] [address] [place] [address] MEDICAID Care Teams Wood And Wood Products Labourer Relationship Specialty Start Date End Date Stef Lucero MD [address] [place] [address] PCP - General Internal Medicine 05/17/23
--- OUTSIDE RECORDS SUMMARY | 2024-12-18 12:32 | XMS_ITS | Clinical Summary ---
Author Organization [facility] [[email or web address]] Address [address] [place] [address] Care Team Providers Care Veterinary Technology Instructor Name Role Phone Stef Lucero MD Primary Care Provider [phone] Surgical History Surgery Date Site/Laterality Comments OTHER [...] 2024 Influenza Vaccine (#1) 2024 RSV Immunization Adult Patie nts (1 - 1-dose 75+ series) 2036 HIB [...] age to complete this topic Care Teams Veterinary Technology Instructor Relationship Specialty Start Date End Date Stef Lucero MD [address] [place] [address] PCP - General 10/27/22
== END 2024-12-17 10:38 | disposition home or self-care (01) ==
LOC: HO.HOSX 10:37
PROVIDERS: Visit Provider Physician Assistant
DX: M25.569 Pain in unspecified knee (principal); M17.12 Unilateral primary osteoarthritis, left knee
CPT/HCPCS: 20610; 73562; 99212; J1010; J2003

== ENCOUNTER 2025-01-08 15:15 | Outpatient (AMB) | payer OTHER, SELFPAY ==
[2025-01-08 15:22] VITALS: BP 114/62; PULSE 83; O2SAT 96; BMI 33.9
--- NOTE | 2025-01-08 15:22 | A.OFFPC_ITS ---
Vital Signs 01/08/25 15:22 Height 5 ft 8 in Weight 223 lb 2 oz BMI 33.9 BP 114/62 Blood Pressure Location Rt brachial Position Sitting Pulse 83 Pulse Source Pulse Oximeter Pulse Oximetry (%) 96 Oxygen Delivery Method Room Air Intake Visit Reasons: Annual PE Allergies Seasonal Allergies Allergy (Mild, Verified 01/08/25 15:26) Sneezing tramadol Allergy (Verified 01/08/25 15:26) upset stomach Medication List - Last Reconciled 01/08/25 by Stef Lucero MD amlodipine 10 mg PO QPM atorvastatin 40 mg PO BEDTIME celecoxib (Celebrex) 200 mg PO DAILY CPAP (CPAP Machine/Device) As directed loratadine (Claritin) 10 mg PO DAILY losartan 100 mg PO DAILY omeprazole 20 mg PO DAILY Tobacco use date assessed: 01/08/25 Dental Screening Dental Screen Date: 01/08/25 Did you have a dental visit in the last 12 months?: Yes Did you have a dental problem in the last 6 months where you did not have access to dental care?: No Was dental information given to patient?: Patient has dentist HPI Annual PE HPI Details Physical exam - The patient is a 64-year-old male pres enting with a medical review and chronic pain management. - Essential Hypertension: The patient moreno s a history of hypertension and is currently on medication. - Hypercholesterolemia: The patient?s la st cholesterol test in August showed very high levels. 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 Pain relief is minimal with current treatment, which includes Celebrex and usage of cannabis for pain management. Tells me Celebrex is not helping at all, patient was instructed to stop it - Gastroesophageal Reflux Disease: The p atient has GERD and is taking omeprazole for management. - Allergic Rhinitis: Symptoms are manage d with Claritin. Health Maintenance - The patient is due for a colonoscopy n ext year. - Bloodwork is due to monitor cholestero l and general health. - Education on the risks of cannabis use , including potential withdrawal symptoms and weight changes. 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 - Employment-related stress due to the p ossibility of needing shoulder surgery and financing time off. Diagnostic results - Labs: Previously high cholesterol note d during August testing. Liver enzymes, kidney function, electrolytes, and complete blood count were within normal limits. Patient Instructions - Schedule a blood test at the earliest convenience. - Consider discontinuing Celebrex if it is not effective in pain management as discussed during the consultation. - Be cautious with cannabis use due to p otential withdrawal symptoms. - Return for follow-up in four months or sooner if symptoms worsen or new sympt oms arise. Review of Systems - General: No fever no chills - Neurological: No headaches no dizzin ess - Ear nose throat: No sore throat no hearing difficulty no ear pain - Cardiovascular: No syncope, no chest pain, no palpitations - Gastrointestinal: No nausea vomiting or diarrhea - Endocrine: No polyuria polydipsia no heat intolerance - Genitourinary: No dysuria - Skin: No new complaints Physical Exam General: Cooperative, healthy appearing, comfortable, no acute distress Orientation: Patient oriented x3 Head: Normal to inspection Ears: Within normal limit visually Nose: Normal external nose present Face and sinus: Normal facial exam Eyes: Appearance normal, extraocular movement intact pupils reactive Neck: Normal visual inspection and supple Respiratory: Normal respiratory effort and able to speak in complete sentences. Clear to auscultation, no stridor Cardiovascular: S1 and S2 RRR GI: Normal to inspection. Soft to palpation and nontender Skin: Turgor normal, no acute findings Neuro: Patient oriented x3, motor sensory intact, balance intact, tandem pass Extremities: Normal to inspection, able to lift shoulder with discomfort. 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 1. Little interest or pleasure in doing things: not at all 2. Feeling down, depressed, or hopeless: not at all 3. Trouble falling or staying asleep, or sleeping too much: not at all 4. Feeling tired or having little energy: not at all 5. Poor appetite or overeating: not at all 6. Feeling bad about yourself - or that you are a failure or have let yourself or your family down: not at all 7. Trouble concentrating on things, such as reading the newspaper or watching television: not at all 8. Moving or speaking so slowly that other people could have noticed. Or the opposite - being so fidgety or restless that you have been moving around a lot more than usual: not at all 9. Thoughts that you would be better off or of hurting yourself in some way: not at all Total score: 0 Depression Screening Interpretation: Negative Depression Screening Done: Yes 88568 - PHQ-9 Billing: Yes Source: Developed by Drs. Jeramy Slaughter, Mary Ann David, Kamlesh Rodríguez and colleagues, with an educational farhan from [employer]. Thrive Questionnaire Date Thrive assessed: 01/08/25 I am a: Patient What is your living situation today?: I have a steady place to live Within the past 12 months, did the food you bought not last and you didn't have the money to get more?: I choose not to answer this question Within the past 12 months, did you worry whether your food would run out before you got money to buy more?: Never true Do you have trouble paying for medicines?: No Do you have trouble getting transportation to medical appointments?: No Do you have trouble paying your heating and electricity bill?: No Do you have trouble taking care of your child, family member or friend?: No Do you have trouble with day-to-day activities such as bathing, preparing meals, shopping, managing finances, etc.?: No Are you currently unemployed and looking for a job?: No Are you interested in more education?: No Please select the resources that you would like help with: None Currently or been in a relationship where the following occur: No concerns reported THRIVE Score: 0 AUDIT C Alcohol Use Questionnaire (AUDIT-C) 1. How often do you have a drink containing alcohol?: Never 3. How often do you have six or more drinks on one occasion?: Never Total Score: 0 Score Reviewed/Action Taken: Yes ELI-7 AMB Questionnaire ELI-7 Date ELI - 7 assessed: 01/08/25 Feeling nervous, anxious, or on edge: 0 = Not at all Not being able to stop or control worryin = Not at all Worrying too much about different things: 0 = Not at all Trouble relaxin = Not at all Being so restless that it is hard to sit still: 0 = Not at all Becoming easily annoyed or irritable: 0 = Not at all Feeling afraid as if something awful might happen: 0 = Not at all Total ELI-7 score (0-4 normal; 5-9 mild; 10-14 moderate; 15-21 severe): 0 Source: Developed by Drs. Jeramy Slaughter, Mary Ann David, Kamlesh Rodríguez and colleagues, with an educational farhan from [employer]. ELI-7 Assessment Billing ELI-7 Assessment Tool: ELI-7 Assessment 13643 Physical exam (Primary Care) Vital Signs: Last Vital Signs Pulse 83 01/08/25 15:22 BP 114/62 01/08/25 15:22 Pulse Ox 96 01/08/25 15:22 Oxygen Delivery Method Room Air 01/08/25 15:22 BMI result Body Mass Index 33.9 Tobacco/Smoking Status: Tobacco use Status Tobacco use date assessed 01/08/25 01/08/25 15:27 Patient Tobacco Use Status Current everyday Tobacco 01/08/25 15:25 Tobacco use type Cigarette 01/08/25 15:25 e-Cigarette/Vaping Use Never Used 01/08/25 15:25 PHQ-9: PHQ-9 Score PHQ-9: Total score 0 01/08/25 15:27 Depression Screening Interpretation: Negative Thrive Assessment: Date of Thrive Assessment Date Thrive assessed 01/08/25 01/08/25 15:25 Currently or been in a relationship where the following occur: No concerns reported Coding Level of Care Code Est Pt Level 3 (14206) Est Pt Prev Care 40-64y(37454) Diagnoses Encounter for general adult medical examination with abnormal findings Z00.01 Hypertension, essential I10 Chronic GERD K21.9 Environmental allergies Z91.09 Lipid disorder E78.9 Mild aortic stenosis I35.0 Rotator cuff tear arthropathy of right shoulder M75.101; M12.811 Severe back pain M54.9 Cannabis dependence F12.20 Additional Codes LEI-7 Assessment Billing - ELI-7 Assessment Tool: ELI-7 Assessment 91937 ([id number]) PHQ-9 - 09536 - PHQ-9 Billing: Yes ([id number]) Assessment & Plan Assessment & Plan (1) Encounter for general adult medical examination with abnormal findings: Code(s): Z00.01 - Encounter for general adult medical examination with abnormal findings Category: Medical (2) Hypertension, essential: Code(s): I10 - Essential (primary) hypertension Category: Medical (3) Chronic GERD: Code(s): K21.9 - Gastro-esophageal reflux disease without esophagitis Category: Medical (4) Environmental allergies: Code(s): Z91.09 - Other allergy status, other than to drugs and biological substances Category: Medical (5) Lipid disorder: Code(s): E78.9 - Disorder of lipoprotein metabolism, unspecified Category: Medical (6) Mild aortic stenosis: Code(s): I35.0 - Nonrheumatic aortic (valve) stenosis Category: Medical (7) Rotator cuff tear arthropathy of right shoulder: Code(s): M75.101 - Unspecified rotator cuff tear or rupture of right shoulder, not specified as traumatic; M12.811 - Other specific arthropathies, not elsewhere classified, right shoulder Category: Medical (8) Severe back pain: Code(s): M54.9 - Dorsalgia, unspecified Category: Medical (9) Cannabis dependence: Comment: For pain control, patient is not driving currently, and will stop if he resume Code(s): F12.20 - Cannabis dependence, uncomplicated Category: Medical Plan Physical exam - The patient is a 64-year-old male presenting with a medical review and chronic pain management. - Essential Hypertension: The patient has a history of hypertension and is currently on medication. - Hypercholesterolemia: The patient?s last cholesterol test in August showed very high levels. - Chronic Pain: The patient reports chronic pain in the back, knee, and shoulders due to torn rotator cuffs in both shoulders. Pain relief is minimal with current treatment, which includes Celebrex and usage of cannabis for pain management. Tells me Celebrex is not helping at all, patient was instructed to stop it - Gastroesophageal Reflux Disease: The patient has GERD and is taking omeprazole for management. - Allergic Rhinitis: Symptoms are managed with Claritin. Health Maintenance - The patient is due for a colonoscopy next year. - Bloodwork is due to monitor cholesterol and general health. - Education on the risks of cannabis use, including potential withdrawal symptoms and weight changes. 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 - Employment-related stress due to the possibility of needing shoulder surgery and financing time off. Diagnostic results - Labs: Previously high cholesterol noted during August testing. Liver enzymes, kidney function, electrolytes, and complete blood count were within normal limits. Patient Instructions - Schedule a blood test at the earliest convenience. - Consider discontinuing Celebrex if it is not effective in pain management as discussed during the consultation. - Be cautious with cannabis use due to potential withdrawal symptoms. - Return for follow-up in four months or sooner if symptoms worsen or new symptoms arise. Medications: Discontinued celecoxib (Celebrex) Discontinued Reason: Doctor's Order 200 mg PO DAILY 90 caps 0RF
--- OUTSIDE RECORDS SUMMARY | 2025-01-08 17:59 | XMS_ITS | Clinical Summary ---
Author Organization [facility] Address [address] [address] Phone Care Team Providers Care Dust Control Engineer Name Role Phone Stef Lucero MD Primary Care Provider [phone] Allergies Active Allergy Reactions Criticality Noted Date [...] 1 (one) time each day 11/17/2023 Active loratadine (Claritin) 10 MG tablet Take 10 mg by mouth 10/03/2023 Active Active Problems Problem Noted Date Diagnosed Date Obese class II 01/01/2024 Severe obesity 05/16/2023 05/16/2023 Encounters Date Type Department Care Team Description 01/08/2025 1:15 PM EDT Office Visit [facility] [address] [facility] [address] [place] [address] Marquis Harris MD Hypertension (Primary Dx) from Last 3 Months Family History Medical History Relation Comments Alcohol [...] Sign Reading Time Taken Comments Blood Pressure 124/66 01/08/2025 1:17 PM EDT Pulse 82 01/08/2025 1:17 PM EDT Temperature - - Respiratory Rate - - Oxygen Saturation 97% 06/19/2023 2:31 PM EDT Inhaled Oxygen Concentration - - Weight 102 kg (224 lb) 01/08/2025 1:17 PM EDT Height - - Body Mass Index - - Plan of Treatment Health Maintenance Due Date Last Done Comments Pneumococcal Vaccine: 50+ Ye ars (1 of 2 - PCV) 1980 Colorectal Cancer Screening: Annual FOBT 2010 Colorectal Cancer Screening: Colonoscopy 2010 Colorectal Cancer Screening: Sigmoidoscopy 2010 Influenza Vaccine (Season Ended) 2025 Hepatitis B Vaccine Aged Out No longe r eligible based on patient's age to complete this topic Insurance Medicaid Care Teams Dust Control Engineer Relationship Specialty Start Date End Date Stef Lucero MD [address] [place] [address] PCP - General Internal Medicine 05/17/23
--- OUTSIDE RECORDS SUMMARY | 2025-01-08 17:59 | XMS_ITS | Encounter Summary ---
Author Organization [facility]. Address [address] [address] Phone Care Team Providers Care Visual Merchandising Specialist Name Role Phone Stef Lucero MD Primary Care Provider [phone] Reason for Visit * Reason Comments Hypertension Encounter Details Date Type Department Care Team ([facility] st Contact Info) Description 01/08/2025 1:15 PM EDT Office Visit [facility] [address] [address] Marquis Harris MD [address] [address] Hypertension (Primary Dx) Social History Tobacco Use Types Packs/Day Years Used Date Smoking Tobacco: Never Passive Smoke Exposure: Never Smokeless Tobacco: Never Alcohol Use Standard Drinks/Week Comments Never 0 (1 standard drink = 0.6 oz pur e alcohol) Sex and Gender Information Value Date Recorded Sex Assigned at Not on file Legal Sex Male 4:02 PM EDT Gender Identity Not on file Sexual Orientation Not on file documented as of this encounter Last Filed Vital Signs Vital Sign Reading Time Taken Comments Blood Pressure 124/66 01/08/2025 1:17 PM EDT Pulse 82 01/08/2025 1:17 PM EDT Temperature - - Respiratory Rate - - Oxygen Saturation - - Inhaled Oxygen Concentration - - Weight 102 kg (224 lb) 01/08/2025 1:17 PM EDT Height - - Body Mass Index - - documented in this encounter Progress Notes * Marquis Harris MD - 01/08/2025 1:15 PM EDT [facility] Patient Name: Kris Todd, Male Date of : 1960, 64 y.o. Date: 01/08/2025 Referring MD: No primary care provider on file. PCP: Stef Lucero MD Reason For Visit: I had the pleasure of seeing your patient for follow up of HTN. He reports good blood pressure at home in the range of 120 systolic. The following portions of the patient's chart were reviewed in this encounter and updated as appropriate: Allergies Meds Problems Med Hx Surg Hx Fam Hx Constitutional: Negative for chills, fever, malaise/fatigue and weight loss. HENT: Negative for ear pain, hearing loss and tinnitus. Eyes: Negative for blurred vision, double vision, photophobia and pain. Respiratory: Negative for cough, hemoptysis, sputum production, shortness of breath and wheezing. Cardiovascular: Negative for chest pain, palpitations, orthopnea, claudication and leg swelling. Gastrointestinal: Negative for abdominal pain, diarrhea, nausea and vomiting. Genitourinary: Negative for dysuria, flank pain, frequency, hematuria and urgency. Musculoskeletal: Negative for myalgias. Skin: Negative for itching and rash. Neurological: Negative for dizziness, tingling and headaches. Psychiatric/Behavioral: Negative for depression. Full 13 point review of systems unremarkable except as noted above. Past Medical History: Diagnosis Date Severe obesity (HCC) Past Surgical History: Procedure Laterality Date ANKLE SURGERY Social History Tobacco Use Smoking status: Never Passive exposure: Never Smokeless tobacco: Never Substance Use Topics Alcohol use: Never Family History Problem Relation Age of Onset COPD Mother Cancer Father Alcohol abuse Father Current Outpatient Medications Medication Sig Dispense Refill amLODIPine (NORVASC) 10 MG tablet Take 10 mg by mouth 1 (one) time each day celecoxib (CeleBREX) 200 MG capsule Take by mouth 1 (one) time each day cetirizine (ZyrTEC) 10 MG tablet Take 10 mg by mouth 1 (one) time each day loratadine (Claritin) 10 MG tablet Take 10 mg by mouth losartan (COZAAR) 100 MG tablet Take 100 mg by mouth at bed time omeprazole (PriLOSEC) [address] capsule Take 20 mg by mouth 1 (one) time each day Do not crush or chew. No current facility-administered medications for this visit. Allergies Allergen Reactions Mixed Ragweed Pollen Extract Tramadol Other Reaction(s): severe stomach upset Objective: Vitals: 01/08/25 1317 BP: 124/66 Pulse: 82 Weight: 224 lb (102 kg) Constitutional: He is oriented to person, place, and time. He does not appear ill. HEENT: Mouth/Throat: Oropharynx is clear and moist. Eyes: Pupils are equal, round, and reactive to light. Neck: No JVD present. Cardiovascular: Regular rhythm. He exhibits no edema. Pulmonary/Chest: Breath sounds normal. Abdominal: Soft. There is no abdominal tenderness. Musculoskeletal: Normal range of motion. Neurological: He is alert and oriented to person, place, and time. Psychiatric: He has a normal mood and affect. No results found for: EGFRAFR eGFR Non-Afr Djiboutian Date Value Ref Range Status 04/23/2023 86 Final Chemistry Lab Units 04/23/23 0000 02/02/23 0000 CREATININE mg/dL 1.00 1.00 BUN mg/dL 18 14 EGFRNAFR 86 87 GLUCOSE 117 97 POTASSIUM 4.5 4.6 SODIUM 142 141 CO2 mmol/L 26 27 CHLORIDE 103.0 103.0 Bone Mineral Lab Units 04/23/23 0000 02/02/23 0000 CALCIUM mg/dL 9.9 9.8 CBC Lab Units 10/10/23 0000 04/23/23 0000 02/02/23 0000 WBC AUTO 10*3/ML 14.0* 12.9* 8.4 HEMATOCRIT 40.0* 47.4 42.6 HEMOGLOBIN 13.2* 15.5 13.7 PLATELETS AUTO 10*3/UL 293 347 341 Urine Lab Units 04/23/23 0000 RBC UR 15 PLAN: Assessment & Plan 1. Hypertension He has HTN in the setting of normal kidney function and no proteinuria. He has essential HTN and secondary HTN (LUIS). Doppler evaluation of renal arteries had showed bilateral renal artery stenosis (>60%). (R 11.26 cm, L 12.3 cm) But MRA showed patent renal arteries with mild less than 50% bilateral renal artery stenosis. PA 2.5 and PRA 3.179 Plasma metanephrine 25.7 not c/w hyperaldosteronism or pheochromocytoma. BP is on target. REC Amlodipine 10 mg daily Losartan 100 mg daily Life style modifications Low sodium diet CPAP I will be happy to see him in the future should he have any other issue No orders of the defined types were placed in this encounter. Return if symptoms worsen or fail to improve. Marquis Harris MD documented in this encounter Plan of Treatment Not on file documented as of this encounter Visit Diagnoses Diagnosis Hypertension- Primary documented in this encounter Care Teams Visual Merchandising Specialist Relationship Specialty Start Date End Date Stef Lucero MD [address] [place] [address] PCP - General Internal Medicine 05/17/23 documented as of this encounter
--- OUTSIDE RECORDS SUMMARY | 2025-01-08 17:59 | XMS_ITS | Clinical Summary ---
Author Organization [facility] Address [address] [place] [address] Care Team Providers Care Relay Shop Supervisor Name Role Phone Stef Lucero MD Primary Care Provider Surgical History Surgery Date Site/Laterality Comments OTHER [...] - 2023-2 5 season) 2024 Influenza Vaccine (Season Ended) 2025 RSV Immunization Adult Patie nts (1 - [...] age to complete this topic Meningococcal B Vaccine Aged Out No l onger eligible based on patient's age to complete [...] age to complete this topic Care Teams Relay Shop Supervisor Relationship Specialty Start Date End Date Stef Lucero MD [address] [place] [address] PCP - General 10/27/22
== END 2025-01-08 15:42 | disposition home or self-care (01) ==
LOC: HO.HMCC 15:16
PROVIDERS: PCP Internal Medicine; Visit Provider Internal Medicine
DX: Z00.01 Encounter for general adult medical examination with abnormal findings (principal); I10 Essential (primary) hypertension; F12.20 Cannabis dependence, uncomplicated; K21.9 Gastro-esophageal reflux disease without esophagitis; Z91.09 Other allergy status, other than to drugs and biological substances; E78.9 Disorder of lipoprotein metabolism, unspecified; I35.0 Nonrheumatic aortic (valve) stenosis; M75.101 Unspecified rotator cuff tear or rupture of right shoulder, not specified as traumatic; M12.811 Other specific arthropathies, not elsewhere classified, right shoulder; M54.9 Dorsalgia, unspecified

== ENCOUNTER → 2025-01-08 15:15 | Outpatient (BNVA) | payer OTHER, SELFPAY | PROVIDERS: PCP Internal Medicine; Visit Provider Internal Medicine | DX: Z00.01 Encounter for general adult medical examination with abnormal findings (principal); I10 Essential (primary) hypertension; K21.9 Gastro-esophageal reflux disease without esophagitis; E78.9 Disorder of lipoprotein metabolism, unspecified; I35.0 Nonrheumatic aortic (valve) stenosis; M75.101 Unspecified rotator cuff tear or rupture of right shoulder, not specified as traumatic; M12.811 Other specific arthropathies, not elsewhere classified, right shoulder; M54.9 Dorsalgia, unspecified; F12.20 Cannabis dependence, uncomplicated; Z91.09 Other allergy status, other than to drugs and biological substances | CPT/HCPCS: 96127; 99212; 99396 ==

== ENCOUNTER 2025-01-09 06:08 | Outpatient (REF) | payer OTHER, SELFPAY ==
--- OUTSIDE RECORDS SUMMARY | 2025-01-09 06:11 | XMS_ITS | Clinical Summary ---
Author Organization [facility] Address [address] [address] Phone Care Team Providers Care Computer Operator Name Role Phone Stef Lucero MD Primary Care Provider [phone] Allergies Active Allergy Reactions Criticality Noted Date [...] Office Visit [facility] [address] [facility] [address] [place] [address] Marquis Harris MD Hypertension (Primary [...] complete this topic Insurance Medicaid Care Teams Computer Operator Relationship Specialty Start Date End Date Stef Lucero MD [address] [place] [address] PCP - General Internal Medicine 05/17/23
--- OUTSIDE RECORDS SUMMARY | 2025-01-09 06:11 | XMS_ITS | Clinical Summary ---
Author Organization [facility] Address [address] [place] [address] Care Team Providers Care Buyer Assistant Name Role Phone Stef Lucero MD Primary Care Provider [phone] Surgical History Surgery Date Site/Laterality Comments OTHER [...] age to complete this topic Care Teams Buyer Assistant Relationship Specialty Start Date End Date Stef Lucero MD [address] [place] [address] PCP - General 10/27/22
--- OUTSIDE RECORDS SUMMARY | 2025-01-09 06:11 | XMS_ITS | Encounter Summary ---
Author Organization [facility]. Address [address] [address] Phone Care Team Providers Care Sales Development Manager Name Role Phone Stef Lucero MD Primary Care Provider [phone] Reason for Visit * Reason Comments Hypertension Encounter Details Date Type Department Care Team (Late st Contact Info) Description 01/08/2025 1:15 PM EDT Office Visit [facility] [address] [address] Marquis Harris MD [address] [address] Hypertension (Primary Dx) Social History [...] EDT [facility] Patient Name: Kris Todd, Male Date of [...] No results found for: EGFRAFR eGFR Non-Afr Croatian Date Value Ref Range Status 04/23/2023 86 [...] Primary documented in this encounter Care Teams Sales Development Manager Relationship Specialty Start Date End Date Stef Lucero MD [address] [place] [address] PCP - General Internal Medicine 05/17/23 documented as of this encounter
[2025-01-09 11:08] LABS: Alanine Aminotransferase 24 U/L (0-40); Albumin Level 4.2 g/dL (3.5-5.0); Alkaline Phosphatase 73 U/L (39-117); Anion Gap 10 (12-20); Aspartate Amino Transferase 30 U/L (5-37); Bilirubin Total 0.8 mg/dL (0.0-1.0); Blood Urea Nitrogen 12 mg/dL (9-16); Calcium 9.5 mg/dL (8.4-10.2); Carbon Dioxide 27 mmol/L (22-29); Chloride 106 mmol/L (96-108); Cholesterol 120 mg/dL (<200); Estimated Glomerular Filt Rate > 60; Glucose Fasting 95 mg/dL (60-99); HDL Cholesterol 32 mg/dL (>40); LDL Cholesterol Calculated 56 mg/dL (<100); Potassium 3.8 mmol/L (3.3-5.1); Sodium 139 mmol/L (135-145); Total Protein 6.8 g/dL (6.5-8.0); Triglycerides 161 mg/dL (<150)
== END 2025-01-09 06:09 | disposition home or self-care (01) ==
LOC: HO.HMGCLDS 06:08
PROVIDERS: PCP Internal Medicine; Visit Provider Internal Medicine
DX: I10 Essential (primary) hypertension (principal); E78.9 Disorder of lipoprotein metabolism, unspecified
CPT/HCPCS: 36415; 80053; 80061

== ENCOUNTER 2025-01-20 08:07 | Outpatient (REF) | payer OTHER, SELFPAY ==
--- OUTSIDE RECORDS SUMMARY | 2025-01-20 08:17 | XMS_ITS | Clinical Summary ---
Author Organization [facility] Address [address] [place] [address] Care Team Providers Care New Car Make Ready Mechanic Name Role Phone Stef Lucero MD Primary [...] age to complete this topic Care Teams New Car Make Ready Mechanic Relationship Specialty Start Date End Date Stef Lucero MD [address] [place] [address] PCP - General 10/27/22
--- OUTSIDE RECORDS SUMMARY | 2025-01-20 08:17 | XMS_ITS | Clinical Summary ---
Author Organization [facility] Address [address] [address] Phone Care Team Providers Care Territory Development Manager Name Role Phone Stef Lucero MD Primary Care Provider [phone] Allergies Active Allergy Reactions Criticality Noted Date [...] Office Visit [facility] [address] [facility] [address] [place] [address] Marquis Harris MD Hypertension (Primary [...] complete this topic Insurance Medicaid Care Teams Territory Development Manager Relationship Specialty Start Date End Date Stef Lucero MD [address] [place] [address] PCP - General Internal Medicine 05/17/23
== END 2025-01-20 08:08 | disposition home or self-care (01) ==
LOC: HO.HOSX 08:07
DX: Z13.89 Encounter for screening for other disorder (principal)

== ENCOUNTER 2025-02-28 09:24 | Outpatient (AMB) | payer OTHER, SELFPAY ==
--- NOTE | 2025-02-28 09:26 | MHC.OFFVIS ---
Intake Visit Reasons: Inj-B/L shoulder inj-last inj. 11/26/24 Intake Note: Kris is a 64 year old male who presents today for bilateral shoulder injections (80), last injections 11/26/24. Patient reports his last injections gave him about relief and would like to repeat. Allergies Seasonal Allergies Allergy (Mild, Verified 02/28/25 09:33) Sneezing tramadol Allergy (Verified 02/28/25 09:33) upset stomach HPI HPI Inj-B/L shoulder inj-last inj. 11/26/24: Details: Mr. Todd is a 64-year-old male who presents to the office today for bilateral shoulder injections. Last injections were on 11/26/2024 and gave him good relief. Therefore, he would like to repeat the injections in the office today. 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 No ecchymosis, erythema, or edema. Lacking 20 degrees of forward flexion and abduction. Positive cross-body reach. Significant weakness with empty can. Negative drop arm. NVI. Left shoulder: Normal to inspection. No ecchymosis, erythema, or edema. Full shoulder ROM in all planes. Positive cross-body reach. 4/5 strength with empty can. Negative drop arm. NVI. Office Procedures AMB Joint Injection/Aspiration Joint Injection/Aspiration Primary Site: left shoulder Secondary Site: right shoulder Prep: site was prepped using aseptic technique, ethochloride spray was applied and injection warnings given Injected: 40 mg of, DepoMedrol, with 8 mL of (2% plain lidocaine) and in the subcromial space Approach Used: posterolateral Procedure: The patient tolerated the procedure well, but had some pain with the injection and there was some relief with the local anesthesia Coding 92817 - Large joint Procedure code (CPT) selection complete Assessment & Plan Assessment & Plan (1) Painful arc syndrome of left shoulder: Code(s): M75.102 - Unspecified rotator cuff tear or rupture of left shoulder, not specified as traumatic Category: Medical (2) Rotator cuff tear arthropathy of right shoulder: Code(s): M75.101 - Unspecified rotator cuff tear or rupture of right shoulder, not specified as traumatic; M12.811 - Other specific arthropathies, not elsewhere classified, right shoulder Category: Medical Plan The patient was offered a cortisone injection in bilateral shoulders with 40 mg of DepoMedrol. The patient was explained the risks, benefits, and alternatives to receiving this injection. After receiving consent for the injection, the patient had the procedure done while in the office today. The patient tolerated the procedure well with no complications. Follow-up will be PRN, or sooner if needed Coding Level of Care Code Est Pt Level 4 (79871) Diagnoses Painful arc syndrome of left shoulder M75.102 Rotator cuff tear arthropathy of right shoulder M75.101; M12.811 CPT Codes Coding - Large joint: 10492 - Large joint ([id number])
--- OUTSIDE RECORDS SUMMARY | 2025-02-28 09:50 | XMS_ITS | Clinical Summary ---
Author Organization [facility] Address [address] [place] [address] Care Team Providers Care Mononitrotoluene Operator Name Role Phone Stef Lucero MD Primary Care Provider [phone] Surgical History Surgery Date Site/Laterality Comments OTHER [...] age to complete this topic Care Teams Mononitrotoluene Operator Relationship Specialty Start Date End Date Stef Lucero MD [address] [place] [address] PCP - General 10/27/22
== END 2025-02-28 09:33 | disposition home or self-care (01) ==
LOC: HO.HOS 09:24
PROVIDERS: PCP Internal Medicine; Visit Provider Physician Assistant
DX: M75.102 Unspecified rotator cuff tear or rupture of left shoulder, not specified as traumatic (principal); M75.101 Unspecified rotator cuff tear or rupture of right shoulder, not specified as traumatic; M12.811 Other specific arthropathies, not elsewhere classified, right shoulder
CPT/HCPCS: 20610

== ENCOUNTER → 2025-02-28 09:24 | Outpatient (BNVA) | payer OTHER, SELFPAY | PROVIDERS: PCP Internal Medicine; Visit Provider Physician Assistant | DX: M75.102 Unspecified rotator cuff tear or rupture of left shoulder, not specified as traumatic (principal); M75.101 Unspecified rotator cuff tear or rupture of right shoulder, not specified as traumatic; M12.811 Other specific arthropathies, not elsewhere classified, right shoulder | CPT/HCPCS: 20610; J1010; J2003 ==

== ENCOUNTER 2025-03-28 13:49 | Outpatient (AMB) | payer OTHER, SELFPAY ==
--- OUTSIDE RECORDS SUMMARY | 2025-03-28 13:56 | XMS_ITS | Clinical Summary ---
Author Organization [facility] Address [address] [place] [address] Care Team Providers Care Braided Rug Maker Name Role Phone Stef Lucero MD Primary Care Provider [phone] Surgical History Surgery Date Site/Laterality Comments OTHER [...] 2023-2 5 season) 2024 Influenza Vaccine (#1) 2025 RSV Immunization Adult Patie nts (1 [...] 5 Years) and At-Risk Patients (6 to 49 Years) Aged Out No longer eligible b ased on patient's age to complete this topic RSV Immunization Patients Un jose 20 months Aged Out No longer eligible b ased on patient's age to complete this topic Varicella Vaccines Aged Out No longer eligible based on patient's age to complete this topic Care Teams Braided Rug Maker Relationship Specialty Start Date End Date Stef Lucero MD [address] [place] [address] PCP - General 10/27/22
--- OUTSIDE RECORDS SUMMARY | 2025-03-28 13:56 | XMS_ITS | Clinical Summary ---
Author Organization [facility] Address [address] [address] Phone Care Team Providers Care Used Equipment Sales Representative Name Role Phone Stef Lucero MD Primary Care Provider [phone] Allergies Active Allergy Reactions Criticality Noted Date [...] Office Visit [facility] [address] [facility] [address] [place] [address] Marquis Harris MD Hypertension (Primary [...] Cancer Screening: Sigmoidoscopy 2010 Influenza Vaccine (#1) 2025 Hepatitis B Vaccine Aged Out No longe r eligible based on patient's age to complete this topic Insurance Medicaid Care Teams Used Equipment Sales Representative Relationship Specialty Start Date End Date Stef Lucero MD [address] [place] [address] PCP - General Internal Medicine 05/17/23
[2025-03-28 14:02] VITALS: BMI 33.9
--- NOTE | 2025-03-28 14:02 | MHC.OFFVIS ---
Vital Signs 03/28/25 14:02 Height 5 ft 8 in Weight 223 lb BMI 33.9 Intake Visit Reasons: left knee Injection (80), last inj 12/17/24 Intake Note: Kris is a 64 year old male who presents today for a left knee Injection (80), last inj 12/17/24. Patient reports since last injection the pain was relieved a little bit but about a month ago he kneeled on his left knee aggravating it. . Allergies Seasonal Allergies Allergy (Mild, Verified 03/28/25 14:08) Sneezing tramadol Allergy (Verified 03/28/25 14:08) upset stomach HPI HPI left knee Injection (80), last inj 12/17/24: Details: Mr. Todd is a 64-year-old male who presents to the office today for chronic left knee pain due to osteoarthritis. His last cortisone injection was 12/17/2024. He is looking to repeat injection today. Of note, the patient is having respiratory symptoms and is not feeling well. He is wearing a mask at today's visit. 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 Crepitus with range of motion. Range of motion 0120. Tenderness to palpation medial joint line. NVI. Office Procedures AMB Joint Injection/Aspiration Joint Injection/Aspiration Primary Site: left knee Prep: site was prepped using aseptic technique, ethochloride spray was applied and injection warnings given Injected: 80 mg of, DepoMedrol, with 8 mL of (2% plain lidocaine) and in the joint Approach Used: anterolateral Procedure: The patient tolerated the procedure well, but had some pain with the injection and there was some relief with the local anesthesia Coding 79104 - Large joint Procedure code (CPT) selection complete Assessment & Plan Assessment & Plan (1) Osteoarthritis of left knee: Code(s): M17.12 - Unilateral primary osteoarthritis, left knee Category: Medical Plan The patient was offered a cortisone injection in the left knee with 80 mg of DepoMedrol. The patient was explained the risks, benefits, and alternatives to receiving this injection. After receiving consent for the injection, the patient had the procedure done while in the office today. The patient tolerated the procedure well with no complications. Follow-up will be p.r.n., or sooner if needed Coding Level of Care Code Est Pt Level 3 (39128) Diagnoses Osteoarthritis of left knee M17.12 CPT Codes Coding - 12339 Large joint: 74390 - Large joint ([id number])
== END 2025-03-28 14:20 | disposition home or self-care (01) ==
LOC: HO.HOS 13:50
PROVIDERS: PCP Internal Medicine; Visit Provider Physician Assistant
DX: M17.12 Unilateral primary osteoarthritis, left knee (principal)
CPT/HCPCS: 20610; 99213

== ENCOUNTER → 2025-03-28 13:49 | Outpatient (BNVA) | payer OTHER, SELFPAY | PROVIDERS: PCP Internal Medicine; Visit Provider Physician Assistant | DX: M17.12 Unilateral primary osteoarthritis, left knee (principal); M25.562 Pain in left knee | CPT/HCPCS: 20610; 99212; J1010; J2003 ==

== ENCOUNTER 2025-03-31 07:05 | Emergency (ER) | payer OTHER, SELFPAY ==
--- NOTE | ~2025-03-31 | XR_ITS ---
EXAMINATION: XR CHEST CLINICAL INFORMATION: cough/sob COMPARISON: 11/12/2024 TECHNIQUE: 2 views of the chest were obtained. FINDINGS: The cardiac, hilar, and mediastinal contours are normal. The lungs are diffusely hyperaerated, however clear bilaterally. There is no pneumothorax or pleural effusion. There is no focal osseous or soft tissue abnormality. XR/XR chest 2V IMPRESSION: No active pulmonary disease. Electronically signed by: Alfredito Duvall MD 03/31/2025 08:16 AM EDT
[2025-03-31 07:13] VITALS: BP 130/69; PULSE 93; RESP 18; TEMP 36.3; O2SAT 94; BMI 31.6
--- OUTSIDE RECORDS SUMMARY | 2025-03-31 07:52 | XMS_ITS | Clinical Summary ---
Author Organization [facility] Address [address] [address] Phone Care Team Providers Care Safety Counselor Name Role Phone Stef Lucero MD Primary Care Provider [phone] Allergies Active Allergy Reactions Criticality Noted Date [...] Office Visit [facility] [address] [facility] [address] [place] [address] Marquis Harris MD Hypertension (Primary [...] complete this topic Insurance Medicaid Care Teams Safety Counselor Relationship Specialty Start Date End Date Stef Lucero MD [address] [place] [address] PCP - General Internal Medicine 05/17/23
--- OUTSIDE RECORDS SUMMARY | 2025-03-31 07:52 | XMS_ITS | Clinical Summary ---
Author Organization [facility] Address [address] [place] [address] Care Team Providers Care Community Aide Name Role Phone Stef Lucero MD Primary Care Provider [phone] Surgical History Surgery Date Site/Laterality Comments OTHER [...] age to complete this topic Care Teams Community Aide Relationship Specialty Start Date End Date Stef Lucero MD [address] [place] [address] PCP - General 10/27/22
--- NOTE | 2025-03-31 07:54 | ED.GENADULT ---
HPI - General Adult General Chief complaint: Upper Respiratory Symptoms Stated complaint: sob cough Time Seen by Provider: 03/31/25 07:52 Source: patient, RN notes reviewed and old records reviewed Mode of arrival: ambulatory Limitations: no limitations History of Present Illness ED Provider: Ran CARNES narrative: 64 y/o male with pmhx of HTN, GERD, sleep apnea, and hiatal hernia presents to the ED with concern for a productive cough and congestion. The cough and congestion began on and have been becoming more severe. He reports associated weakness and SOB. Patient states chest wall pain and dizziness which occur after a coughing episode. He has taken Robitussin DM which temporarily relieved his symptoms. Patient also been in contact with an employee who was sick last Monday with bronchitis. He states he felt feverish with chills and body aches on and Monday, but these symptoms have since subsided. Patient also has had one episode of diarrhea. Patient admits to being a current smoker for the past year and 1/2. He denies Nausea/vomiting, abdominal pain, or syncopal epsisodes. MD complaint: cough, dyspnea Onset (ago): day(s) Related Data Home Medications ?Medication ?Instructions ?Recorded ?Confirmed omeprazole 20 mg capsule,delayed 20 mg PO DAILY 12/30/22 01/08/25 release Previous Rx's ?Medication ?Instructions ?Recorded CPAP (CPAP Machine/Device) #1 ea 07/18/23 loratadine 10 mg tablet (Claritin) 10 mg PO DAILY #90 tabs 02/13/25 losartan 100 mg tablet 100 mg PO DAILY #90 tabs 02/19/25 amlodipine 10 mg tablet 10 mg PO QPM #90 tabs 02/27/25 atorvastatin 40 mg tablet 40 mg PO BEDTIME #90 tabs 03/22/25 azithromycin 250 mg tablet See Rx Instructions PO .COMPLEX #6 03/31/25 tabs benzonatate 100 mg capsule 100 mg PO TID PRN cough #14 caps 03/31/25 prednisone 20 mg tablet 20 mg PO DAILY #5 tabs 03/31/25 Allergies Allergy/AdvReac Type Severity Reaction Status Date / Time Seasonal Allergies Allergy Mild Sneezing Verified 03/31/25 07:13 tramadol Allergy upset Verified 03/31/25 07:13 stomach Review of Systems Review of Systems: PER HPI Yes all other systems are reviewed and are negative Constitutional: Constitutional: Reports as per HPI [facility] Past Medical History Surgical History History of back surgery Social History Social History Housing: House Patient Tobacco Use Status: Current everyday Tobacco user Tobacco use type: Cigarette Cigarette Packs Per Day: 1 Cigarettes Per Day: 20 e-Cigarette/Vaping Use: Never Used Second Hand Smoke Exposure: No Advance Directives: No Advance Directives Information Provided: No Do you have a plan to hurt others: No Plan service: Yes Current occupational status: unemployed 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 Blood pressure normal. Heart rate normal. Respiratory rate normal. Temperature normal. Oxygen saturation normal. Const General: cooperative, healthy appearing and no acute distress Orientation/consciousness: oriented to person, oriented to place, oriented to time and patient oriented x3 Limitations: no limitations HENMT Head: Yes normocephalic and Yes atraumatic Ears: external ears normal General nose exam: Normal external nose present Face and sinus: Yes face symmetric Mouth: oropharynx normal and moist mucous membranes Throat: Yes uvula midline Eyes Pupils: Equal, round and reactive pupils present Neck Neck: Yes normal visual inspection and Yes supple Resp Effort & Inspection: normal respiratory effort, able to speak in complete sentences and Actively coughing Quality: dry Auscultation: clear to auscultation bilaterally and rhonchi upper bilaterally Cardio Rate: regular rate Rhythm: regular rhythm Heart sounds: S1 normal heart sound present and S2 normal heart sound present GI Palpation (GI): Soft to palpation and nontender Auscultation: normoactive bowel sounds General: Yes no CVA tenderness Back/Spine/Pelvis Back: no CVA tenderness Skin General skin exam: elasticity normal and turgor normal Neuro General: oriented to person, oriented to place, oriented to time, patient oriented x3, moves all extremities, no focal motor deficits and CN's II-XI intact bilaterally Cranial nerves: Yes Equal, round and reactive pupils present Cognition (Neuro): normal cognition Extrem General: Yes full ROM, Yes no pedal edema and Yes no calf tenderness Psych Mental Status: mental status grossly normal Affect: normal affect Thought process: Normal thought process present Medical Decision Making Medical Decision Making [facility] Narrative: 64 y/o male with pmhx of HTN, GERD, sleep apnea, and hiatal hernia presents to the ED with concern for a productive cough and congestion. On exam patient is awake, A+Ox3, VS WNL, afebrile, normal neurological exam without focal deficits, physical exam findings as above. Given reported symptoms and physical exam findings, initial differential includes but is not limited to viral illness, covid, flu, rsv, bronchitis, pneumonia. Viral serology negative. X-ray chest notable for no evidence of pneumonia. My interpretation is in agreement with the radiologist's interpretation. Results discussed with patient and all questions answered. Will treat for bronchitis with azithromycin, benzonatate, prednisone. Follow up with PCP. Return precautions discussed. Patient verbalized understanding of and agreement with plan. Differential Diagnosis Differential Diagnoses: The differential diagnosis associated with the presentation includes as per [facility] Admission/Observation Consideration of admission/observation: Escalation of care including admission/observation considered Lab Data [facility] Lab Attestation statement: I reviewed the patient's lab results. As per [facility] Labs: Lab Results 03/31/25 Range/Units 07:21 Influenza Type A (PCR) NEGATIVE (Negative) Influenza Type B (PCR) NEGATIVE (Negative) RSV RNA Qual (PCR) NEGATIVE (Negative) SARS-CoV-2 RNA (RT-PCR) NEGATIVE (Negative) Independent Interpretation I performed an independent interpretation of an: Plain X-Ray Interpretation: X-ray chest notable for no evidence of pneumonia. Radiology Impression Discussion of test interpretation with radiology: I have reviewed the radiologist's reading. Radiologist Impression: XR/XR chest 2V IMPRESSION: No active pulmonary disease. External Record Review External record reviewed: Inpatient record, Office record and Outpatient record Prescription Management I considered prescription management with: Antibiotic and Other Discharge Plan Discharge Clinical Impression: Bronchitis Patient Disposition: Home, Self-Care Instructions: Acute Bronchitis (ED) Additional Instructions: You were evaluated in the emergency department today for cough and shortness of breath. You are being treated for bronchitis with an antibiotic, please complete the full course as prescribed. You are also being prescribed a short course of steroids to decrease inflammation. You are being prescribed cough medication which you can use every 8 hours as needed. KEEP THIS MEDICATION OUT OF THE REACH OF CHILDREN. Please follow-up with your primary care provider this week. Return to the emergency department if you develop worsening shortness of breath, difficulty breathing, chest pain, fever not improved with Tylenol or ibuprofen, or any other concerning symptoms. Prescriptions: New azithromycin 250 mg tablet See Rx Instructions .ROUTE .COMPLEX Qty: 6 0RF Rx Instructions: For 250 mg dose pack: take 500 mg today (day 1), then 250 mg for 4 days (days 2-5) prednisone 20 mg tablet 20 mg PO DAILY Qty: 5 0RF benzonatate 100 mg capsule 100 mg PO TID PRN (Reason: cough) Qty: 14 0RF No Action (DME) CPAP Machine/Device Device See Rx Instructions .Route Qty: 1 0RF Rx Instructions: As directed loratadine [Claritin] 10 mg tablet 10 mg PO DAILY Qty: 90 0RF losartan 100 mg tablet 100 mg PO DAILY Qty: 90 0RF amlodipine 10 mg tablet 10 mg PO QPM Qty: 90 0RF atorvastatin 40 mg tablet 40 mg PO BEDTIME Qty: 90 0RF omeprazole 20 mg capsule,delayed release(DR/EC) 20 mg PO DAILY Print Language: Nepalese
[2025-03-31 08:47] LABS: Resp Syncy Virus RNA Qual PCR NEGATIVE (Negative); SARS COV2 PCR INHOUSE NEGATIVE (Negative)
[2025-03-31 09:03] VITALS: BP 125/68; PULSE 92; RESP 20; TEMP 36.7; O2SAT 94
[2025-03-31 10:03] VITALS: BP 131/68; PULSE 70; RESP 16; TEMP 36.9; O2SAT 95
== END 2025-03-31 10:06 | disposition home or self-care (01) ==
PROVIDERS: Emergency Provider Emergency Medicine; PCP Internal Medicine
DX: J40 Bronchitis, not specified as acute or chronic (principal); R06.02 Shortness of breath; R05.9 Cough, unspecified; R53.1 Weakness; R42 Dizziness and giddiness
CPT/HCPCS: 71046; 87637; 99283

== ENCOUNTER → 2025-03-31 07:26 | Outpatient (BNV) | payer OTHER, SELFPAY | PROVIDERS: Emergency Provider Emergency Medicine; PCP Internal Medicine; Visit Provider Radiology Diagnostic Radiology | DX: R05.9 Cough, unspecified (principal); R06.02 Shortness of breath | CPT/HCPCS: 71046 ==

== ENCOUNTER 2025-05-27 14:56 | Outpatient (AMB) | payer OTHER, SELFPAY ==
--- NOTE | 2025-05-27 15:01 | A.OFFPC_ITS ---
Vital Signs 05/27/25 15:02 Height 5 ft 10 in Weight 220 lb BMI 31.6 BP 122/68 Blood Pressure Location Lt brachial Position Sitting Pulse 80 Pulse Source Pulse Oximeter Pulse Oximetry (%) 94 Intake Visit Reasons: 4m follow up Allergies Seasonal Allergies Allergy (Mild, Verified 05/27/25 15:02) Sneezing tramadol Allergy (Verified 05/27/25 15:02) upset stomach Medication List - Last Reconciled 05/27/25 by Stef Lucero MD amlodipine 10 mg PO QPM atorvastatin 40 mg PO BEDTIME CPAP (CPAP Machine/Device) As directed loratadine (Claritin) 10 mg PO DAILY losartan 100 mg PO DAILY omeprazole 20 mg PO DAILY Tobacco use date assessed: 01/08/25 Dental Screening Dental Screen Date: 01/08/25 HPI 4m follow up HPI Details History of Present Illness The patient is a 64-year-old male presenting with routine management of blood pressure and shoulder pain. Hypertension: - The patient reports a blood pressure r eading of 122/68, which he considers good. - He is currently taking Amlodipine 10 m g for blood pressure management. - There are no new issues or complicatio ns reported regarding blood pressure. Shoulder Pain: - The patient has been receiving injecti ons for shoulder pain administered by an brownfield redevelopment specialist. - There has been some improvement report ed although the efficacy is somewhat limited. - The problem is chronic and continues t o be addressed with the help of an brownfield redevelopment specialist. Tobacco Use: - The patient admits to smoking about a pack of cigarettes a day. - Expresses a desire to cut down due to financial burden and health concerns, especially after his lost her job. - Acknowledges a need to avoid people wh o smoke to assist in quitting attempts. Cannabis Use: - The patient reports current use mainly to manage pain. - Acknowledges that smoking does not all eviate shoulder pain. Medical History: - Hypertension - Hyperlipidemia - Gastroesophageal Reflux Disease (GERD) - Allergic Rhinitis Medications: - Amlodipine, 10 mg for hypertension - Atorvastatin for hyperlipidemia - Losartan for hypertension - Omeprazole for gastroesophageal reflux disease - Loratadine for allergic rhinitis Social History: - Reports smoking approximately one pack of cigarettes per day. - Current cannabis use primarily for blake n management. - Expresses financial challenges after s pouse?s job loss, impacting smoking habits. Diagnostic Results: - Instructed to have blood test for kidn ey function and liver enzymes, although results not available yet. Problem List - Hypertension - Hyperlipidemia - Gastroesophageal Reflux Disease - Allergic Rhinitis - Shoulder Pain Patient Instructions - Continue current medications as prescr ibed. - Make efforts to reduce tobacco use and consider quitting. - Schedule and complete a blood test tod ay for kidney function and liver enzymes. - Consider positive behavioral changes w ith the financial impact of tobacco. - Return in October for further evaluat ion. Review of Systems - General: No fever no chills - Neurological: No headaches no dizziness - Ear nose throat: No sore throat no hearing difficulty no ear pain - Cardiovascular: No syncope, no chest pain, no palpitations - Gastrointestinal: No nausea vomiting or diarrhea - Endocrine: No polyuria polydipsia no heat intolerance - Genitourinary: No dysuria , no blood in urine Physical Exam - General: No acute distress - HEENT: No acute findings - Neck: Supple - Respiratory system: Able to talk in f ull sentences, no audible wheeze - Cardiovascular: S1-S2 regular in rate and rhythm - Gastrointestinal: No pain - Extremities: No new findings - CAR STOWER: Alert awake oriented x3 motor se nsory intact - Skin: Normal turgor [facility] Surgical History History of back surgery Social History Housing: House Patient Tobacco Use Status: Current everyday Tobacco user Tobacco use type: Cigarette Cigarette Packs Per Day: 1 Cigarettes Per Day: 20 e-Cigarette/Vaping Use: Never Used Second Hand Smoke Exposure: No service: Yes Current occupational status: unemployed 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 Current occupational exposures/hazards: No Cognitive needs: No Hearing needs: Yes (left ear ) Vision needs: Yes Questionnaire Thrive Questionnaire Date Thrive assessed: 01/08/25 Within the past 12 months, did you worry whether your food would run out before you got money to buy more?: Never true Do you have trouble paying for medicines?: No Do you have trouble getting transportation to medical appointments?: No Do you have trouble paying your heating and electricity bill?: No Do you have trouble taking care of your child, family member or friend?: No Do you have trouble with day-to-day activities such as bathing, preparing meals, shopping, managing finances, etc.?: No Are you currently unemployed and looking for a job?: No Are you interested in more education?: No Please select the resources that you would like help with: None Currently or been in a relationship where the following occur: No concerns reported THRIVE Score: 0 AUDIT C Alcohol Use Questionnaire (AUDIT-C) 1. How often do you have a drink containing alcohol?: Never Total Score: 0 LEI-7 AMB Questionnaire ELI-7 Date ELI - 7 assessed: 01/08/25 Feeling nervous, anxious, or on edge: 0 = Not at all Not being able to stop or control worryin = Not at all Worrying too much about different things: 0 = Not at all Trouble relaxin = Not at all Being so restless that it is hard to sit still: 0 = Not at all Becoming easily annoyed or irritable: 0 = Not at all Feeling afraid as if something awful might happen: 0 = Not at all Total ELI-7 score (0-4 normal; 5-9 mild; 10-14 moderate; 15-21 severe): 0 Source: Developed by Drs. Jeramy Slaughter, Mary Ann David, Kamlesh Rodríguez and colleagues, with an educational farhan from [employer]. Physical exam (Primary Care) Vital Signs: Last Vital Signs Pulse 80 05/27/25 15:02 BP 122/68 05/27/25 15:02 Pulse Ox 94 05/27/25 15:02 BMI result Body Mass Index 31.6 Tobacco/Smoking Status: Tobacco use Status Tobacco use date assessed 01/08/25 05/27/25 15:04 Patient Tobacco Use Status Current everyday Tobacco 05/27/25 15:04 Tobacco use type Cigarette 05/27/25 15:04 e-Cigarette/Vaping Use Never Used 05/27/25 15:04 Tobacco cessation counseling provided: Yes Relapse Prevention: discussed the importance of a supportive environment and discussed dietary, exercise and/or lifestyle changes CPT code: 07103 - 4-10 Minutes Thrive Assessment: Date of Thrive Assessment Date Thrive assessed 01/08/25 05/27/25 15:04 Currently or been in a relationship where the following occur: No concerns reported Coding Level of Care Code Est Pt Level 4 (62864) Complex EM visit Add On G2211 Diagnoses Hypertension, essential I10 Chronic GERD K21.9 Lipid disorder E78.9 Cannabis dependence F12.20 Environmental allergies Z91.09 Sleep apnea in adult G47.30 Tobacco dependence F17.200 Additional Codes Vital Signs *Quality* - CPT code: 98893 - 4-10 Minutes ([id number]) Assessment & Plan Assessment & Plan (1) Hypertension, essential: Code(s): I10 - Essential (primary) hypertension Category: Medical (2) Chronic GERD: Code(s): K21.9 - Gastro-esophageal reflux disease without esophagitis Category: Medical (3) Lipid disorder: Code(s): E78.9 - Disorder of lipoprotein metabolism, unspecified Category: Medical (4) Cannabis dependence: Comment: For pain control, patient is not driving currently, and will stop if he resume Code(s): F12.20 - Cannabis dependence, uncomplicated Category: Medical (5) Environmental allergies: Code(s): Z91.09 - Other allergy status, other than to drugs and biological substances Category: Medical (6) Sleep apnea in adult: Code(s): G47.30 - Sleep apnea, unspecified Category: Medical (7) Tobacco dependence: Code(s): F17.200 - Nicotine dependence, unspecified, uncomplicated Category: Medical Plan History of Present Illness The patient is a 64-year-old male presenting with routine management of blood pressure and shoulder pain. Hypertension: - The patient reports a blood pressure reading of 122/68, which he considers good. - He is currently taking Amlodipine 10 mg for blood pressure management. - There are no new issues or complications reported regarding blood pressure. Shoulder Pain: - The patient has been receiving injections for shoulder pain administered by an brownfield redevelopment specialist. - There has been some improvement reported although the efficacy is somewhat limited. - The problem is chronic and continues to be addressed with the help of an brownfield redevelopment specialist. Tobacco Use: - The patient admits to smoking about a pack of cigarettes a day. - Expresses a desire to cut down due to financial burden and health concerns, especially after his lost her job. - Acknowledges a need to avoid people who smoke to assist in quitting attempts. Cannabis Use: - The patient reports current use mainly to manage pain. - Acknowledges that smoking does not alleviate shoulder pain. Medical History: - Hypertension - Hyperlipidemia - Gastroesophageal Reflux Disease (GERD) - Allergic Rhinitis Medications: - Amlodipine, 10 mg for hypertension - Atorvastatin for hyperlipidemia - Losartan for hypertension - Omeprazole for gastroesophageal reflux disease - Loratadine for allergic rhinitis Social History: - Reports smoking approximately one pack of cigarettes per day. - Current cannabis use primarily for pain management. - Expresses financial challenges after spouse?s job loss, impacting smoking habits. Diagnostic Results: - Instructed to have blood test for kidney function and liver enzymes, although results not available yet. Problem List - Hypertension - Hyperlipidemia - Gastroesophageal Reflux Disease - Allergic Rhinitis - Shoulder Pain Patient Instructions - Continue current medications as prescribed. - Make efforts to reduce tobacco use and consider quitting. - Schedule and complete a blood test today for kidney function and liver enzymes. - Consider positive behavioral changes with the financial impact of tobacco. - Return in October for further evaluation. Orders: Orders Comprehensive Met. Panel Today E78.9 - Disorder of lipoprotein metabolism, unspecified, F12.20 - Cannabis dependence, uncomplicated, G47.30 - Sleep apnea, unspecified, I10 - Essential (primary) hypertension, K21.9 - Gastro-esophageal reflux disease without esophagitis, Z91.09 - Other allergy status, other than to drugs and biological substances Complete Blood Count Auto Diff Today E78.9 - Disorder of lipoprotein metabolism, unspecified, F12.20 - Cannabis dependence, uncomplicated, G47.30 - Sleep apnea, unspecified, I10 - Essential (primary) hypertension, K21.9 - Gastro-esophageal reflux disease without esophagitis, Z91.09 - Other allergy status, other than to drugs and biological substances LDL Cholesterol Direct Today E78.9 - Disorder of lipoprotein metabolism, unspecified, F12.20 - Cannabis dependence, uncomplicated, G47.30 - Sleep apnea, unspecified, I10 - Essential (primary) hypertension, K21.9 - Gastro-esophageal reflux disease without esophagitis, Z91.09 - Other allergy status, other than to drugs and biological substances
[2025-05-27 15:02] VITALS: BP 122/68; PULSE 80; O2SAT 94; BMI 31.6
--- OUTSIDE RECORDS SUMMARY | 2025-05-27 17:23 | XMS_ITS | Clinical Summary ---
Author Organization [facility] Address [address] [place] [address] Care Team Providers Care Hosiery Bagger Name Role Phone Stef Lucero MD Primary Care Provider [phone] Surgical History Surgery Date Site/Laterality Comments OTHER [...] Panel) 08/21/2022 Colorectal Cancer Screening: Colonoscopy 08/21/2022 HIV Screening 08/21/2022 Hepatitis C Screening 08/21/2022 Social Influencers of Health Screening 08/21/2022 Depression Screening 09/18/2024 COVID-19 Vaccine ( - 2023-2 5 season) 2025 Influenza Vaccine (#1) 2025 RSV Immunization Adult [...] age to complete this topic Care Teams Hosiery Bagger Relationship Specialty Start Date End Date Stef Lucero MD [address] [place] [address] PCP - General 10/27/22
--- OUTSIDE RECORDS SUMMARY | 2025-05-27 17:23 | XMS_ITS | Clinical Summary ---
Author Organization [facility] Address [address] [address] Phone Care Team Providers Care Rail Assembler Name Role Phone Stef Lucero MD Primary Care Provider [phone] Allergies Active Allergy Reactions Criticality Noted Date [...] patient's age to complete this topic Insurance [place] [address] Medicaid Care Teams Rail Assembler Relationship Specialty Start Date End Date Stef Lucero MD [address] [place] [address] PCP - General Internal Medicine 05/17/23
== END 2025-05-27 15:16 | disposition home or self-care (01) ==
LOC: HO.HMCC 14:56
PROVIDERS: PCP Internal Medicine; Visit Provider Internal Medicine
DX: I10 Essential (primary) hypertension (principal); K21.9 Gastro-esophageal reflux disease without esophagitis; E78.9 Disorder of lipoprotein metabolism, unspecified; F12.20 Cannabis dependence, uncomplicated; Z91.09 Other allergy status, other than to drugs and biological substances; G47.30 Sleep apnea, unspecified; F17.200 Nicotine dependence, unspecified, uncomplicated

== ENCOUNTER → 2025-05-27 14:56 | Outpatient (BNVA) | payer OTHER, SELFPAY | PROVIDERS: PCP Internal Medicine; Visit Provider Internal Medicine | DX: I10 Essential (primary) hypertension (principal); K21.9 Gastro-esophageal reflux disease without esophagitis; E78.9 Disorder of lipoprotein metabolism, unspecified; G47.30 Sleep apnea, unspecified; F17.210 Nicotine dependence, cigarettes, uncomplicated; F12.20 Cannabis dependence, uncomplicated; Z91.09 Other allergy status, other than to drugs and biological substances | CPT/HCPCS: 99212 ==

== ENCOUNTER 2025-05-28 06:04 | Outpatient (REF) | payer OTHER, SELFPAY ==
--- OUTSIDE RECORDS SUMMARY | 2025-05-28 06:08 | XMS_ITS | Clinical Summary ---
Author Organization [facility] Address [address] [place] [address] Care Team Providers Care Retirement Officer Name Role Phone Stef Lucero MD Primary Care Provider [phone] Surgical History Surgery Date Site/Laterality Comments OTHER [...] age to complete this topic Care Teams Retirement Officer Relationship Specialty Start Date End Date Stef Lucero MD [address] [place] [address] PCP - General 10/27/22
--- OUTSIDE RECORDS SUMMARY | 2025-05-28 06:08 | XMS_ITS | Clinical Summary ---
Author Organization [facility] Address [address] [address] Phone Care Team Providers Care Signs And Displays Salesperson Name Role Phone Stef Lucero MD Primary Care Provider [phone] Allergies Active Allergy Reactions Criticality Noted Date [...] patient's age to complete this topic [place] [address] Medicaid Care Teams Signs And Displays Salesperson Relationship Specialty Start Date End Date Stef Lucero MD [address] [place] [address] PCP - General Internal Medicine 05/17/23
[2025-05-28 10:47] LABS: MANUAL DIFF FLAG NO
[2025-05-28 10:56] LABS: Hematocrit 40.1 % (42.0-52.0); Hemoglobin 13.3 g/dl (14.0-18.0); Imm Gran Abs Auto 0.04 X10*3/uL (0.00-0.03); Imm Gran Pct Auto 0.4 % (0.0-0.4); Lymphocytes Absolute Auto 2.4 X10*3/uL (1.2-4.9); Mean Corpuscular HGB Conc 33.2 g/dl (31.0-36.0); Mean Corpuscular Hemoglobin 31.0 pg (27.0-33.0); Mean Corpuscular Volume 93.5 fL (80.0-98.0); NRBC Abs Auto 0.000 X10*3/uL (0.0-0.012); NRBC Pct Auto 0.0 /100WBC (0.0-0.2); Platelet Count 356 X10*3/uL (160-400); Red Blood Count 4.29 X10*6/uL (4.60-5.80); White Blood Count 9.7 X10*3/uL (4.8-10.8)
[2025-05-28 11:32] LABS: Alanine Aminotransferase 17 U/L (0-40); Albumin Level 4.5 g/dL (3.5-5.0); Alkaline Phosphatase 85 U/L (39-117); Anion Gap 13 (12-20); Aspartate Amino Transferase 30 U/L (5-37); Blood Urea Nitrogen 10 mg/dL (9-16); Calcium 9.4 mg/dL (8.4-10.2); Carbon Dioxide 29 mmol/L (22-29); Chloride 105 mmol/L (96-108); Estimated Glomerular Filt Rate > 60; Potassium 3.5 mmol/L (3.3-5.1); Sodium 143 mmol/L (135-145); Total Protein 7.0 g/dL (6.5-8.0)
== END 2025-05-28 06:05 | disposition home or self-care (01) ==
LOC: HO.HMGCLDS 06:04
PROVIDERS: PCP Internal Medicine; Visit Provider Internal Medicine
DX: K21.9 Gastro-esophageal reflux disease without esophagitis (principal); E78.9 Disorder of lipoprotein metabolism, unspecified; I10 Essential (primary) hypertension; F12.20 Cannabis dependence, uncomplicated; G47.30 Sleep apnea, unspecified; Z91.09 Other allergy status, other than to drugs and biological substances
CPT/HCPCS: 36415; 80053; 83721; 85025

== ENCOUNTER 2025-05-29 14:48 | Outpatient (AMB) | payer OTHER, SELFPAY ==
--- NOTE | 2025-05-29 15:22 | MHC.OFFVIS ---
Vital Signs 05/29/25 15:43 Height 5 ft 10 in Weight 220 lb BMI 31.6 Intake Visit Reasons: OV - B/L shoulder pain, last inj left 02/28/25 Intake Note: Kris is a 64 year old male who presents today for a for a follow of his bilateral shoulder pain, last injection (40) on the left shoulder was on 02/28/25. Patient states that both of his shoulder are causing him pain. he notices that his left shoulder is worse than the right. He states that his last injeciton gave him relief and would like to repeat. Allergies Seasonal Allergies Allergy (Mild, Verified 05/29/25 15:43) Sneezing tramadol Allergy (Verified 05/29/25 15:43) upset stomach HPI HPI OV - B/L shoulder pain, last inj left 02/28/25: Details: Patient presents to the office today for bilateral shoulder pain. His last cortisone injections were on 02/28/2025. Patient would like to repeat injections while in the office today as these give him great relief. 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 No ecchymosis, erythema, or edema. Lacking 20 degrees of forward flexion and abduction. Positive cross-body reach. Significant weakness with empty can. Negative drop arm. NVI. Left shoulder: Normal to inspection. No ecchymosis, erythema, or edema. Full shoulder ROM in all planes. Positive cross-body reach. 4/5 strength with empty can. Negative drop arm. NVI. Office Procedures AMB Joint Injection/Aspiration Joint Injection/Aspiration Primary Site: right shoulder Secondary Site: left shoulder Injected: 40 mg of, with 3 mL of (2% plain lidocaine), 0.25% bupivacaine, in the subcromial space and decadron Approach Used: posterolateral Procedure: The patient tolerated the procedure well, but had some pain with the injection and there was some relief with the local anesthesia Coding 32470 - Large joint Procedure code (CPT) selection complete Assessment & Plan Assessment & Plan (1) Painful arc syndrome of left shoulder: Code(s): M75.102 - Unspecified rotator cuff tear or rupture of left shoulder, not specified as traumatic Category: Medical (2) Rotator cuff tear arthropathy of right shoulder: Code(s): M75.101 - Unspecified rotator cuff tear or rupture of right shoulder, not specified as traumatic; M12.811 - Other specific arthropathies, not elsewhere classified, right shoulder Category: Medical Plan The patient was offered a cortisone injection in bilateral shoulders. The patient was explained the risks, benefits, and alternatives to receiving this injection. After receiving consent for the injection, the patient had the procedure done while in the office today. The patient tolerated the procedure well with no complications. Follow-up will be to PRN, or sooner if needed Coding Level of Care Code Est Pt Level 3 (08308) Diagnoses Painful arc syndrome of left shoulder M75.102 Rotator cuff tear arthropathy of right shoulder M75.101; M12.811 CPT Codes Coding - 88637 Large joint: 55224 - Large joint ([id number])
[2025-05-29 15:43] VITALS: BMI 31.6
--- OUTSIDE RECORDS SUMMARY | 2025-05-29 18:20 | XMS_ITS | Clinical Summary ---
Author Organization [facility] Address [address] [place] [address] Care Team Providers Care Lathe Scalper Operator Name Role Phone Stef Lucero MD Primary Care Provider [phone] Surgical History Surgery Date Site/Laterality Comments OTHER [...] age to complete this topic Care Teams Lathe Scalper Operator Relationship Specialty Start Date End Date Stef Lucero MD [address] [place] [address] PCP - General 10/27/22
--- OUTSIDE RECORDS SUMMARY | 2025-05-29 18:20 | XMS_ITS | Clinical Summary ---
Author Organization [facility] Address [address] [address] Phone Care Team Providers Care Anodic Treater Name Role Phone Stef Lucero MD Primary Care Provider [phone] Allergies Active Allergy Reactions Criticality Noted Date [...] patient's age to complete this [place] [address] Medicaid Care Teams Anodic Treater Relationship Specialty Start Date End Date Stef Lucero MD [address] [place] [address] PCP - General Internal Medicine 05/17/23
== END 2025-05-29 15:43 | disposition home or self-care (01) ==
LOC: HO.HOS 14:49
PROVIDERS: PCP Internal Medicine; Visit Provider Physician Assistant
DX: M75.102 Unspecified rotator cuff tear or rupture of left shoulder, not specified as traumatic (principal); M75.101 Unspecified rotator cuff tear or rupture of right shoulder, not specified as traumatic; M12.811 Other specific arthropathies, not elsewhere classified, right shoulder
CPT/HCPCS: 20610; 99213

== ENCOUNTER → 2025-05-29 14:48 | Outpatient (BNVA) | payer OTHER, SELFPAY | PROVIDERS: PCP Internal Medicine; Visit Provider Physician Assistant | DX: M75.101 Unspecified rotator cuff tear or rupture of right shoulder, not specified as traumatic (principal); M75.102 Unspecified rotator cuff tear or rupture of left shoulder, not specified as traumatic; M12.811 Other specific arthropathies, not elsewhere classified, right shoulder | CPT/HCPCS: 20610; 99212; J0665; J1010; J2003 ==

== ENCOUNTER 2025-07-03 14:37 | Outpatient (AMB) | payer OTHER, SELFPAY ==
--- NOTE | 2025-07-03 15:10 | MHC.OFFVIS ---
Intake Visit Reasons: INJ-left knee Injection (80), last inj 03/28/25 Intake Note: Kris is a 64 year old male who presents today for a repeat injection for his left knee, last injection 03/28/25. Patient states his last injection provided him with a little relief, he wishes to repeat injection. Allergies Seasonal Allergies Allergy (Mild, Verified 07/03/25 15:14) Sneezing tramadol Allergy (Verified 07/03/25 15:14) upset stomach HPI HPI INJ-left knee Injection (80), last inj 03/28/25: Details: Mr. Todd is a 64-year-old male who presents to the office today for chronic left knee pain due to osteoarthritis. His last cortisone injection was 12/17/2024. He is looking to repeat injection today. 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 Crepitus with range of motion. Range of motion 0120. Tenderness to palpation medial joint line. NVI. Office Procedures AMB Joint Injection/Aspiration Joint Injection/Aspiration Primary Site: left knee Prep: site was prepped using aseptic technique, ethochloride spray was applied and injection warnings given Injected: 40 mg of, with 3 mL of, 1% plain lidocaine, 0.25% bupivacaine, in the joint and decadron Approach Used: anterolateral Procedure: The patient tolerated the procedure well, but had some pain with the injection and there was some relief with the local anesthesia Coding 01665 - Large joint Procedure code (CPT) selection complete Assessment & Plan Assessment & Plan (1) Osteoarthritis of left knee: Code(s): M17.12 - Unilateral primary osteoarthritis, left knee Category: Medical Plan The patient was offered a cortisone injection in the left knee. The patient was explained the risks, benefits, and alternatives to receiving this injection. After receiving consent for the injection, the patient had the procedure done while in the office today. The patient tolerated the procedure well with no complications. Follow-up will be p.r.n., or sooner if needed Coding Level of Care Code Est Pt Level 3 (37843) Diagnoses Osteoarthritis of left knee M17.12 CPT Codes Coding - 29908 Large joint: 88811 - Large joint ([id number])
--- OUTSIDE RECORDS SUMMARY | 2025-07-03 18:27 | XMS_ITS | Patient Health Record ---
Author Organization [facility] Address [address] [place] [address] Support Name Relationship Address Phone LAUREN MACKAY Guarantor Unknown [phone] Reason For Referral No Information Plan Of Treatment No Information Insurance Providers Payer Name Payer Address Payer Phone Subscriber Number Group Number Insured Name Patient Relationship to Insured Coverage Start Date Coverage End Date [employer] [address] [place] [phone] [id number] LAUREN MACKAY Self - patient is the insured Work Comp [id number] LAUREN MACKAY Self - patient is the insured
== END 2025-07-03 15:18 | disposition home or self-care (01) ==
LOC: HO.HOS 14:38
PROVIDERS: PCP Internal Medicine; Visit Provider Physician Assistant
DX: M17.12 Unilateral primary osteoarthritis, left knee (principal)
CPT/HCPCS: 20610; 99213

== ENCOUNTER → 2025-07-03 14:37 | Outpatient (BNVA) | payer OTHER, SELFPAY | PROVIDERS: PCP Internal Medicine; Visit Provider Physician Assistant | DX: M17.12 Unilateral primary osteoarthritis, left knee (principal) | CPT/HCPCS: 20610; 99212; J0665; J1100; J2003 ==

== ENCOUNTER 2025-08-29 11:37 | Outpatient (AMB) | payer OTHER, SELFPAY ==
--- NOTE | 2025-08-29 11:41 | A.OFFVIS_ITS ---
Intake Visit Reasons: INJB/L shoulder cortisone-last inj 05/29/25 Intake Note: Kris is a 64 year old male who presents today for a repeat injection for his bilateral shoulder, last injection 05/29/25. Patient states his last injection provided him with a little relief, he wishes to repeat injection. Allergies Seasonal Allergies Allergy (Mild, Verified 08/29/25 11:52) Sneezing tramadol Allergy (Verified 08/29/25 11:52) upset stomach HPI HPI INJB/L shoulder cortisone-last inj 05/29/25: Details: Patient is a 65-year-old male who presents to the office today for chronic bilateral shoulder pain. Last cortisone injection was 05/29/2025 which gave him about some relief. He is looking to repeat injections in both shoulders today. 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 No ecchymosis, erythema, or edema. Lacking 20 degrees of forward flexion and abduction. Positive cross-body reach. Significant weakness with empty can. Negative drop arm. NVI. Left shoulder: Normal to inspection. No ecchymosis, erythema, or edema. Full shoulder ROM in all planes. Positive cross-body reach. 4/5 strength with empty can. Negative drop arm. NVI. Office Procedures AMB Joint Injection/Aspiration Joint Injection/Aspiration Primary Site: Right Shoulder Secondary Site: Left Shoulder Prep: site was prepped using aseptic technique, ethochloride spray was applied and injection warnings given Injected: 40 mg of, Decadron, with 3 mL of, 1% plain Lidocaine, 0.25% [place] ine and in the subcromial space Approach Used: posterolateral Procedure: The patient tolerated the procedure well, but had some pain with the injection and there was some relief with the local anesthesia Coding - Bilateral Large Joint Procedure code (CPT) selection complete Assessment & Plan Assessment & Plan (1) Painful arc syndrome of left shoulder: Code(s): M75.102 - Unspecified rotator cuff tear or rupture of left shoulder, not specified as traumatic Category: Medical (2) Rotator cuff tear arthropathy of right shoulder: Code(s): M75.101 - Unspecified rotator cuff tear or rupture of right shoulder, not specified as traumatic; M12.811 - Other specific arthropathies, not elsewhere classified, right shoulder Category: Medical Plan The patient was offered a cortisone injection in bilateral shoulders. The patient was explained the risks, benefits, and alternatives to receiving this injection. After receiving consent for the injection, the patient had the procedure done while in the office today. The patient tolerated the procedure well with no complications. The risks, benefits, and alternatives to a corticosteroid injection were discussed with the patient, including the potential benefits of decreased inflammation and pain, improved function, and diagnostic value. Risks were reviewed, including post-injection flare, skin or fat atrophy, transient facial flushing, temporary elevation in blood glucose, bruising, and rare but serious complications such as infection, tendon weakening or rupture, and cartilage damage with repeated injections. Procedure-related discomfort and possible vasovagal symptoms were also explained. Alternatives were reviewed, including NSAIDs, physical therapy, activity modification, bracing, ice/heat, weight management, hyaluronic acid injections when appropriate, PRP or other orthobiologics, oral steroids, surgery depending on pathology, and observation. The patient verbalized understanding and elected to proceed. After receiving consent for the injection, the patient had the procedure done while in the office today. The patient tolerated the procedure well with no complications. Follow-up will be PRN, or sooner if needed Coding Level of Care Code Est Pt Level 3 (83255) Add On Problem Visit Only Diagnoses Painful arc syndrome of left shoulder M75.102 Rotator cuff tear arthropathy of right shoulder M75.101; M12.811 CPT Codes Coding - - Bilateral Large Joint: 66197 - Bilateral Large Joint ([id number])
== END 2025-08-29 11:52 | disposition home or self-care (01) ==
LOC: HO.HOS 11:38
PROVIDERS: PCP Internal Medicine; Visit Provider Physician Assistant
DX: M75.102 Unspecified rotator cuff tear or rupture of left shoulder, not specified as traumatic (principal); M75.101 Unspecified rotator cuff tear or rupture of right shoulder, not specified as traumatic; M12.811 Other specific arthropathies, not elsewhere classified, right shoulder
CPT/HCPCS: 20610

== ENCOUNTER → 2025-08-29 11:37 | Outpatient (BNVA) | payer OTHER, SELFPAY | PROVIDERS: PCP Internal Medicine; Visit Provider Physician Assistant | DX: M75.102 Unspecified rotator cuff tear or rupture of left shoulder, not specified as traumatic (principal); M75.101 Unspecified rotator cuff tear or rupture of right shoulder, not specified as traumatic; M12.811 Other specific arthropathies, not elsewhere classified, right shoulder | CPT/HCPCS: 20610; J0665; J1100; J2003 ==